=== PATIENT | female | born 1965 | race Caucasian/White ===

== ENCOUNTER → 2019-05-28 15:42 | Outpatient (BNVA) | payer MEDICARE, MEDICAID, SELFPAY | PROVIDERS: Family Provider Nurse Practitioner Family; PCP Nurse Practitioner Family; Visit Provider Nurse Practitioner Family | DX: E11.9 Type 2 diabetes mellitus without complications (principal); Z79.4 Long term (current) use of insulin | CPT/HCPCS: 83036 ==

== ENCOUNTER → 2019-08-09 12:47 | Outpatient (BNVA) | payer OTHER, MEDICAID, SELFPAY | PROVIDERS: Visit Provider Obstetrics & Gynecology | DX: R10.2 Pelvic and perineal pain; N95.2 Postmenopausal atrophic vaginitis; B37.2 Candidiasis of skin and nail | CPT/HCPCS: 80053 ==

== ENCOUNTER → 2019-08-16 07:28 | Outpatient (BNVA) | payer MEDICARE, MEDICAID, SELFPAY | PROVIDERS: Family Provider Nurse Practitioner Family; Visit Provider Nurse Practitioner Psychiatric/Mental Health | DX: F31.62 Bipolar disorder, current episode mixed, moderate (principal); F10.21 Alcohol dependence, in remission; F17.210 Nicotine dependence, cigarettes, uncomplicated; F43.12 Post-traumatic stress disorder, chronic | CPT/HCPCS: 99213 ==

== ENCOUNTER 2019-08-20 18:57 | Observation (INO) | payer MEDICARE, MEDICAID, SELFPAY ==
--- NOTE | 2019-08-20 18:58 | CTR_ITS ---
PROCEDURE INFORMATION: Exam: CT Abdomen And Pelvis With Contrast Exam date and time: 08/20/2019 7:01 PM Age: 54 years old Clinical indication: Abdominal pain; Localized; Right lower quadrant (rlq); Prior surgery; Surgery type: Gb, tubal; Additional info: Abd pain TECHNIQUE: Imaging protocol: Computed tomography of the abdomen and pelvis with intravenous contrast. Total DLP: 1248.73 mGy-cm Radiation optimization: All CT scans at this facility use at least one of these dose optimization techniques: automated exposure control; mA and/or kV adjustment per patient size (includes targeted exams where dose is matched to clinical indication); or iterative reconstruction. Contrast material: OMNI 300; Contrast volume: 95 ml; Contrast route: IV; COMPARISON: CT abdomen pelvis w con* [id number] 08/25/2014 1:35 PM FINDINGS: Mediastinum: A small hiatal hernia is present. Liver: There is some hypodensity adjacent to the gallbladder fossa which is suspected to be tumefactive fatty infiltration. There is mild diffuse fatty infiltration liver. Gallbladder and bile ducts: There has been a cholecystectomy. There is no common bile duct dilation. No intrahepatic biliary duct dilatation. Pancreas: Normal. No ductal dilation. Spleen: Normal. No splenomegaly. Adrenals: Normal. No mass. Kidneys and ureters: There is no evidence of hydronephrosis. There is no evidence of renal calcifications. Stomach and bowel: There is mild diverticulosis without diverticulitis. No additional bowel thickening or inflammatory change. The loops of small bowel have an appropriate appearance. Appendix: The appendix demonstrates moderate diffuse distention, consistent with moderate acute appendicitis. There is periappendiceal inflammatory change. Intraperitoneal space: Unremarkable. No free air. No significant fluid collection. Vasculature: The aorta demonstrates mild atherosclerotic calcification. Lymph nodes: Unremarkable.No enlarged lymph nodes. Bladder: Click bladder nonspecific Reproductive: Unremarkable as visualized. Bones/joints: Moderate degenerative changes are noted in the spine. Chronic appearing anterior wedging fracture of T12 is noted. There is marked disc space narrowing at L4-L5 and L5-S1 with vacuum disc. There is a vacuum disc protrusion at L4-L5. No acute bony abnormality. Soft tissues: There is a tiny fat filled umbilical hernia. Other findings: No ileus or obstruction. CT/CT abdomen pelvis w con* [id number] IMPRESSION: 1. Acute appendicitis. No abscess or free air. 2. There is mild diffuse fatty infiltration liver. Additional hypodensity adjacent to the gallbladder fossa is probable tumefactive fatty infiltration. And elective MRI of the abdomen may be helpful for further confirmation is clinically warranted. There is no duct dilatation in the liver. Radiation Dose CTDIVOL = (mGy): DLP = 1248.73 (mGy-cm)
[2019-08-20 19:01] VITALS: BP 143/96; PULSE 106; RESP 18; TEMP 35.7; O2SAT 98; BMI 29.0
--- NOTE | 2019-08-20 19:07 | ED_ITS ---
HPI - Abdominal Pain General: Chief Complaint: Abdominal Pain Stated Complaint: lower abd pain Time Seen by Provider: 08/20/19 19:05 Source: patient Mode of arrival: ambulatory Limitations: no limitations History of Present Illness: HPI narrative: 54-year-old female has had right lower quadrant pain over the last day. Patient seen in urgent care and sent here to rule out appendicitis. She denies any worsening improving factors. She denies any dysuria. She denies any fevers. MD elicited complaint: abdominal pain Pertinent past history: none Onset (ago): day(s) Pain Consistency: constant Location: RLQ Pain scale (0-10): 9 Radiation: none Migration to: no migration Exacerbating factors: nothing Relieving factors: nothing Associated Symptoms: Denies chills, dysuria and fever(s) Review of Systems Const: Denies: fever, chills, body aches or change in appetite Eyes: Denies: blurry vision or eye discomfort ENMT: Denies: throat pain or dental pain Card: Denies: chest pain Resp: Denies: shortness of breath GI: Reports: abdominal pain : Denies: painful urination Musc: Denies: neck pain or back pain Skin/Breast: Denies: rash Neuro: Denies: headache Psych: Denies: depression Emery/Lymph: Denies: easy bruising All/Imm: Denies: hives PFSH ED PFSH: Medical History Alcohol use disorder, moderate, in early remission Asthma Bipolar 1 disorder Bipolar 1 disorder, mixed, moderate History of overdose CAD (coronary artery disease) DDD (degenerative disc disease), lumbar Diabetes Dyslipidemia GERD (gastroesophageal reflux disease) Hx of drug abuse Hypertension Nicotine dependence, cigarettes, uncomplicated Surgical History History of cholecystectomy (02/13/14) [place]aroscopic[place] [facility] [place] of [place]al ligation (~1993) . [place] [facility] [place] Family History Family/Other Breast cancer aunt and cousin Grandmother Diabetes Hypertension maternal Heart disease maternal Hypercholesteremia maternal Mother Heart disease Hypercholesteremia Social History Smoking and tobacco status: current every day smoker cigarettes Packs smoked per day: 1 Years cigarettes smoked: 30 Second hand smoke exposure: No Alcohol intake: former Year of sobriety/quit date alcohol: Quit 04/2018 Lives independently: Yes Household members: friend(s) Marital status: Current occupational status: disabled History of recent travel: No Current gender identity: Female Physical Exam Const: COMMON NORMALS: no apparent distress, oriented x3 and healthy appearing HENMT: COMMON NORMALS: normocephalic and head/scalp atraumatic HEAD & SCALP: normocephalic and atraumatic Eye: COMMON NORMALS: PERRL and EOMs intact bilaterally PUPIL: Yes PERRL Neck/C-Spine: COMMON NORMALS: full ROM and supple Chest: COMMONS NORMALS: inspection of chest normal and palpation of chest normal Resp: COMMON NORMALS: normal respiratory effort, no retractions, no use of accessory muscles and clear to auscultation bilaterally AUSCULTATION: clear to auscultation bilaterally Cardio: COMMON NORMALS: regular rate, regular rhythm and no murmurs RATE: regular rate RHYTHM: regular rhythm GI: COMMON NORMALS: normal to inspection, nondistended, normoactive bowel sounds, soft to palpation and no masses PALPATION: Yes soft and Yes tender Details: RLQ Extremity: COMMON NORMALS: normal to inspection and full ROM Neuro: COMMON NORMALS: oriented x3, moves all extremities and no focal motor deficits Psych: COMMON NORMALS: mental status grossly normal, thought process normal and cooperative THOUGHT PROCESS: normal thought process Skin: COMMON NORMALS: no rashes or lesions noted and no wounds GENERAL SKIN EXAM: no rashes or lesions noted Course Vital Signs: Vital signs: Vital Signs Temperature 96.3 F L 08/20/19 19:01 Pulse Rate 98 08/20/19 19:46 Respiratory Rate 18 08/20/19 19:46 Blood Pressure 112/76 08/20/19 19:46 Pulse Oximetry 100 08/20/19 19:46 MDM - Abdominal Pain MDM Narrative: Medical decision making narrative: Patient presents here with abdominal pain and CT found appendicitis. I spoke to Dr. Diallo of surgery and will admit and he plans to take her to the OR in the morning. Patient has been stable while here. Imaging Data ^: CT Abd/Pel: Radiologist's impression: [facility] [address] [place] [address] CT Scan Report Signed with Addenda Patient: Jaida Thorpe Unit #: [id number] : [id number] Age/Sex: 54 / F ADM Date: 08/20/19 Loc: ER Room/Bed: Attending Dr: Ordering Provider/Ordering MD: Stephen Mayberry MD Date of Service: 08/20/19 Procedure(s): CT abdomen pelvis w con* [id number] Accession Number(s): [id number] Report Number: [id number]/CT abdomen pelvis w con* [id number] THIS REPORT CONTAINS FINDINGS THAT MAY BE CRITICAL TO PATIENT CARE. The findings were verbally communicated via telephone conference with stephen Mayberry at 7:39 PM CDT on 08/20/2019. The findings were acknowledged and understood. Radiation Dose CTDIVOL = (mGy): DLP = 1248.73 (mGy-cm) Addendum Dictated By: Julianna Myers Addendum Signed By: Julianna Myers Signed Date/Time: 08/20/191940 Addendum Cosigned By: PROCEDURE INFORMATION: Exam: CT Abdomen And Pelvis With Contrast Exam date and time: 08/20/2019 7:01 PM Age: 54 years old Clinical indication: Abdominal pain; Localized; Right lower quadrant (rlq); Prior surgery; Surgery type: Gb, tubal; Additional info: Abd pain TECHNIQUE: Imaging protocol: Computed tomography of the abdomen and pelvis with intravenous contrast. Total DLP: 1248.73 mGy-cm Radiation optimization: All CT scans at this facility use at least one of these dose optimization techniques: automated exposure control; mA and/or kV adjustment per patient size (includes targeted exams where dose is matched to clinical indication); or iterative reconstruction. Contrast material: OMNI 300; Contrast volume: 95 ml; Contrast route: IV; COMPARISON: CT abdomen pelvis w con* [id number] 08/25/2014 1:35 PM FINDINGS: Mediastinum: A small hiatal hernia is present. Liver: There is some hypodensity adjacent to the gallbladder fossa which is suspected to be tumefactive fatty infiltration. There is mild diffuse fatty infiltration liver. Gallbladder and bile ducts: There has been a cholecystectomy. There is no common bile duct dilation. No intrahepatic biliary duct dilatation. Pancreas: Normal. No ductal dilation. Spleen: Normal. No splenomegaly. Adrenals: Normal. No mass. Kidneys and ureters: There is no evidence of hydronephrosis. There is no evidence of renal calcifications. Stomach and bowel: There is mild diverticulosis without diverticulitis. No additional bowel thickening or inflammatory change. The loops of small bowel have an appropriate appearance. Appendix: The appendix demonstrates moderate diffuse distention, consistent with moderate acute appendicitis. There is periappendiceal inflammatory change. Intraperitoneal space: Unremarkable. No free air. No significant fluid collection. Vasculature: The aorta demonstrates mild atherosclerotic calcification. Lymph nodes: Unremarkable.No enlarged lymph nodes. Bladder: Click bladder nonspecific Reproductive: Unremarkable as visualized. Bones/joints: Moderate degenerative changes are noted in the spine. Chronic appearing anterior wedging fracture of T12 is noted. There is marked disc space narrowing at L4-L5 and L5-S1 with vacuum disc. There is a vacuum disc protrusion at L4-L5. No acute bony abnormality. Soft tissues: There is a tiny fat filled umbilical hernia. Other findings: No ileus or obstruction. CT/CT abdomen pelvis w con* [id number] IMPRESSION: 1. Acute appendicitis. No abscess or free air. 2. There is mild diffuse fatty infiltration liver. Additional hypodensity adjacent to the gallbladder fossa is probable tumefactive fatty infiltration. And elective MRI of the abdomen may be helpful for further confirmation is clinically warranted. There is no duct dilatation in the liver. Discharge Plan Discharge Prescriptions: No Action glipizide 5 mg tablet 5 mg PO QDAY RF: 0 Protonix [address] for susp in packet 40 mg PO QDAY RF: 0 albuterol sulfate [Ventolin HFA] 90 mcg/actuation HFA aerosol inhaler 2 puff INHALATION QID RF: 0 metoprolol tartrate 25 mg tablet 12.5 mg PO BID RF: 0 nitroglycerin 0.3 mg tablet, sublingual 0.3 mg SUBLINGUAL Q5M PRN (Reason: chest pain) Qty: 30 RF: 0 terconazole 0.8 % cream 1 appful vaginal .twice daily Qty: 20 RF: 1 aripiprazole [Abilify] 15 mg tablet 15 mg PO BID Qty: 180 RF: 2 hydroxyzine HCl 25 mg tablet 50 mg PO BID PRN (Reason: anxiety) Qty: 180 RF: 2 trazodone 100 mg tablet 300 mg PO .hs Qty: 90 RF: 2 rosuvastatin [Crestor] 40 mg tablet 40 mg PO QDAY Qty: 30 RF: 0 cyclobenzaprine 10 mg tablet 10 mg PO TID PRN (Reason: muscle spasm) Qty: 30 RF: 0 clopidogrel [Plavix] 75 mg tablet 75 mg PO DAILY Qty: 30 RF: 6 Coding Level of Care Code ED 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
[2019-08-20] MEDS: iohexol 300 mg/mL 100 mL Btl IV (19:25)
[2019-08-20] MEDS: sodium chloride 0.9% 1,000 ML 999 ML IV (19:38)
[2019-08-20] MEDS: HYDROmorphone 1 mg/mL INJ 1 mL IVP (19:38)
[2019-08-20] MEDS: ondansetron 2 mg/ML SDV 2 mL 4 MG IVP (19:39)
[2019-08-20 19:46] VITALS: BP 112/76; PULSE 98; RESP 18; O2SAT 100
[2019-08-20 20:07] LABS: Basophils % 0.2 %; Eosinophils # 0.1 10^3/uL (0.0-0.8); Hematocrit 42.2 % (37.0-47.0); Hemoglobin 13.6 g/dL (11.5-15.3); Lymphocytes # 2.9 10^3/uL (0.8-4.8); Lymphocytes % 31.9 %; Mean Corpuscular HGB Conc 32.2 g/dL (30.0-36.0); Mean Corpuscular Hemoglobin 27.9 pg (28.0-34.0); Mean Corpuscular Volume 86.5 fL (81-99); Mean Platelet Volume 10.4 fL (7.4-10.4); Monocytes # 0.5 10^3/uL (0.2-0.9); Monocytes % 5.9 %; Neutrophils # 5.5 10^3/uL (1.8-7.7); Neutrophils % 60.8 %; Nucleated Red Blood Cells % 0 %; Platelet Count 280 10^3/cmm (130-400); Red Blood Count 4.88 10^6/uL (4.1-5.3); Red Cell Distribution Width 13.9 % (12.1-15.1)
[2019-08-20 20:29] LABS: Alanine Aminotransferase 11 U/L (0-33); Albumin Level 3.7 g/dL (3.5-5.2); Alkaline Phosphatase 104 IU/L (35-105); Anion Gap 17.8 (5-19); Aspartate Amino Transferase 13 U/L (0-32); Blood Urea Nitrogen 7 mg/dL (6-20); Calcium 9.6 mg/dL (8.5-10.5); Carbon Dioxide 20 mmol/L (22-29); Chloride 95 mmol/L (98-107); Globulin 3.4 g/dL (1.3-4.6); Glomerular Filtration Rate 51.8 mL/min (90-130); Glucose 118 mg/dL (65-115); Lipase 75 U/L (13-60); Osmolality Calculated 265 mOsm/kg (285-295); Potassium 3.8 mmol/L (3.5-5.1); Sodium 129 mmol/L (136-145); Total Bilirubin 0.5 mg/dL (0.15-1.2); Total Protein 7.1 g/dL (6.6-8.7)
--- NOTE | 2019-08-20 20:36 | PM.CONSULT ---
Providers/Reason For Consult Consulting Physican/Specialty*: Hospitalist service Reason for Consult*: Comorbid condition such as diabetes and hypertension management Attending Physician: Danial Mccord MD History of Present Illness History of Present Illness Jaida Thorpe is a 54 year old female who carries diagnosis of type 2 diabetes takes glipizide, hypertension came in after experiencing lower right lower quadrant pain. Patient is stating that her symptoms started last night. She has been constipated for few days in the past and yesterday was her first bowel movement after experiencing constipation, she was watching television when she started experiencing sharp pain in the right lower quadrant, she experiencing 1-2 episodes of nausea and vomiting today, her pain was getting worse, 10/10, not radiating towards her back not getting worse on micturition. Any kind of movement would make her pain worse. She has not noticed fever at home. No previous history of ovarian cysts. Diagnostics in ER revealed acute appendicitis without abscess or perforation. No signs of sepsis, no leukocytosis. Hospital service was requested to comanage the patient because of underlying diabetes and hypertension. When I evaluated the patient she had just received morphine was not in any active distress, hemodynamically stable. Review of Systems Const: Reports: body aches and change in appetite; Denies: fever or chills Eyes: Denies: change in vision ENMT: Denies: throat pain Card: Denies: chest pain Resp: Denies: shortness of breath GI: Reports: abdominal pain, nausea, vomiting, constipation and change in bowel habits : Denies: flank pain, difficulty urinating or urinary frequency Musc: Denies: neck pain or extremity swelling Skin/Breast: Denies: rash or itching Neuro: Denies: headache Psych: Denies: anxiety Endo: Denies: excessive urination Emery/Lymph: Denies: easy bruising All/Imm: Denies: hives Meds/Allergies Home Medications and Allergies Home Medications Medication Instructions Recorded Confirmed Type albuterol sulfate 90 mcg/actuation 2 puff INHALATION QID 06/12/19 08/20/19 History aerosol inhaler glipizide 5 mg tablet 5 mg PO QDAY 06/12/19 08/20/19 History metoprolol tartrate 25 mg tablet 12.5 mg PO BID 06/12/19 08/20/19 History nitroglycerin 0.3 mg sublingual 0.3 mg SUBLINGUAL Q5M PRN #30 tab 06/12/19 08/20/19 Rx tablet pantoprazole 40 mg granules 40 mg PO QDAY 06/12/19 08/20/19 History delayed-release for susp in packet cyclobenzaprine 10 mg tablet 10 mg PO TID PRN #30 tab 07/04/19 08/20/19 Rx rosuvastatin 40 mg tablet 40 mg PO QDAY #30 tab 07/04/19 08/20/19 Rx clopidogrel 75 mg tablet 75 mg PO DAILY #30 tab 07/24/19 08/20/19 Rx terconazole 0.8 % vaginal cream 1 appful VAGINAL .twice daily #20 08/09/19 08/20/19 Rx gm aripiprazole 15 mg tablet 15 mg PO BID #180 tab 08/16/19 08/20/19 Rx hydroxyzine HCl 25 mg tablet 50 mg PO BID PRN #180 tab 08/16/19 08/20/19 Rx acetaminophen [Tylenol] 325 mg PO QID PRN 08/20/19 08/20/19 History calcium carbonate-vitamin D3 1 cap PO DAILY 08/20/19 08/20/19 History [Calcium 600 + D(3)] meloxicam 15 mg PO DAILY 08/20/19 08/20/19 History trazodone 300 mg PO BEDTIME 08/20/19 08/20/19 History Allergies Allergy/AdvReac Type Severity Reaction Status Date / Time duloxetine [From Cymbalta] Allergy Unknown Unknown Verified 08/20/19 17:37 paroxetine [From Paxil] AdvReac Mild ADR-Shakine Verified 08/20/19 17:37 ss bupropion [From Wellbutrin] AdvReac ADR-Vomitin Verified 08/20/19 17:37 g metformin AdvReac ADR-Diarrhe Verified 08/20/19 17:37 a PFSH Acute PFSH: Medical History Alcohol use disorder, moderate, in early remission Asthma Bipolar 1 disorder Bipolar 1 disorder, mixed, moderate History of overdose CAD (coronary artery disease) DDD (degenerative disc disease), lumbar Diabetes Dyslipidemia GERD (gastroesophageal reflux disease) Hx of drug abuse Hypertension Nicotine dependence, cigarettes, uncomplicated Type 2 diabetes mellitus Surgical History History of cholecystectomy (02/13/14) Laparoscopic. Performed by Dr. Wahl at [facility] [place] History of tubal ligation (~1993) . Performed by Dr. Jesus at [facility] [place]. Family History Family/Other Breast cancer aunt and cousin Grandmother Diabetes Hypertension maternal Heart disease maternal Hypercholesteremia maternal Mother Heart disease Hypercholesteremia Social History Smoking and tobacco status: current every day smoker cigarettes Packs smoked per day: 1 Years cigarettes smoked: 30 Second hand smoke exposure: No Alcohol intake: former Year of sobriety/quit date alcohol: Quit 04/2018 Lives independently: Yes Household members: friend(s) Marital status: Current occupational status: disabled History of recent travel: No Current gender identity: Female Vitals/I&O/Wt Last Vital Signs Temp 96.3 F L 08/20/19 19:01 Pulse 98 08/20/19 19:46 Resp 18 08/20/19 19:46 BP 112/76 08/20/19 19:46 Pulse Ox 100 08/20/19 19:46 Weight last 48 hrs Weight 81.647 kg Physical Exam Narrative: EXAM NARRATIVE: Overweight female currently sitting without any active distress in her bed saturating well with normal hemodynamics Right lower quadrant focal tenderness on superficial and deep palpation without any signs of active peritonitis, any kind of right leg movement would aggravate her pain S1, S2 no signs of heart failure tachycardia Lungs are clear to auscultation Neurologically nonfocal exam Lower extremity no signs of edema gangrene ulcer EOMI, PERRLA Appropriate mood and affect A&P Assessment and plan (1) Acute appendicitis: Status: Acute Qualifiers: Acute appendicitis type: unspecified acute appendicitis type Qualified Code(s): K35.80 - Unspecified acute appendicitis (2) RLQ abdominal pain: Status: Acute (3) Nicotine dependence, cigarettes, uncomplicated: Status: Chronic (4) Hyponatremia: Status: Acute (5) Hypokalemia: Status: Acute Additional A&P Information Comanaging patient along general surgery Acute appendicitis: Afebrile, no leukocytosis, no signs of perforation or abscess on CT imaging, surgical management as per general surgery D5 LR at 30 cc/h, Zosyn, anti-inflammatory ketorolac x1, Dilaudid for analgesia N.p.o. SCDs for DVT prophylaxis Type 2 diabetes: Last hemoglobin A1c around 6 I would use D5 LR, low-dose sliding scale Chronic essential hypertension: Patient is not hypertensive despite abdominal pain, monitor her blood pressure at the moment, I will keep her n.p.o., holding antihypertensives Hyponatremia and hypokalemia I believe this is secondary to dehydration due to vomiting Considering history of alcohol abuse, will check alcohol level Full code Consult Attestations Medical Necessity Statement: As per general surgery Time Spent in Patient Care: 30 Coding Level of Care Code Acute Crane Man for Abida Wharton Diagnoses Acute appendicitis K35.80 Acute appendicitis type: unspecified acute appendicitis type RLQ abdominal pain R10.31 Nicotine dependence, cigarettes, uncomplicated F17.210 Hyponatremia E87.1 Hypokalemia E87.6
[2019-08-20 20:41] LABS: Slide Review Slide Review Perform
[2019-08-20] MEDS: sodium chloride 0.9% 1,000 ML 100 ML IV (21:04)
[2019-08-20] MEDS: piperacillin-tazobactam 3.375 GM in sodium chloride 0.9% (plus) 50 ML IV (21:04)
[2019-08-20 21:05] VITALS: BP 139/94; PULSE 86; RESP 18; O2SAT 98
[2019-08-20 21:54] VITALS: BP 130/87; PULSE 87; RESP 18; O2SAT 100
[2019-08-20] MEDS: morphine 4 mg/mL SDV 1 mL IVP (21:54)
[2019-08-20 23:06] LABS: Magnesium 2.1 mg/dL (1.7-2.3)
[2019-08-20 23:12] VITALS: BP 107/73; PULSE 84; RESP 18; TEMP 36.5; O2SAT 99
[2019-08-20] MEDS: ketorolac 30 mg/mL INJ 15 MG IVP (23:19)
[2019-08-20] MEDS: dextrose 5%-lactated ringers 1,000 ML 30 ML IV (23:19)
[2019-08-20 23:22] LABS: Alcohol Level < 10 mg/dL (0-10)
[2019-08-20 23:42] LABS: Add Urine Microscopic? NO
[2019-08-20 23:49] LABS: Bilirubin Urine Neg (NEGATIVE); Blood Urine Neg (Negative); Glucose Urine UA Norm (Normal); Ketones Urine Negative (Negative); Leukocyte Esterase Urine Negative (Negative); Nitrate Urine Negative (Negative); Protein Urine Neg (Negative); Specific Gravity, Urine 1.005 (1.005-1.030); Urine Appearance Clear (CLEAR); Urine Color Straw (Yellow); Urobilinogen Urine Norm (Negative); pH Urine 5 (5-7)
[2019-08-21] VITALS (27 sets, daily range): BP systolic 81–152; BP diastolic 51–109; PULSE 76–125; RESP 14–24; TEMP 35.8–37.9; O2SAT 85–100
[2019-08-21] MEDS: HYDROmorphone 1 mg/mL INJ 1 mL IVP ×2 (01:51→12:41)
[2019-08-21 04:50] LABS: Basophils % 0.3 %; Eosinophils # 0.2 10^3/uL (0.0-0.8); Eosinophils % 2.3 %; Hematocrit 37.4 % (37.0-47.0); Hemoglobin 12.3 g/dL (11.5-15.3); Lymphocytes # 3.1 10^3/uL (0.8-4.8); Lymphocytes % 46.8 %; Mean Corpuscular HGB Conc 32.9 g/dL (30.0-36.0); Mean Corpuscular Hemoglobin 28.2 pg (28.0-34.0); Mean Corpuscular Volume 85.8 fL (81-99); Mean Platelet Volume 9.9 fL (7.4-10.4); Monocytes # 0.4 10^3/uL (0.2-0.9); Neutrophils # 2.9 10^3/uL (1.8-7.7); Neutrophils % 44.3 %; Nucleated Red Blood Cells % 0 %; Platelet Count 303 10^3/cmm (130-400); Red Blood Count 4.36 10^6/uL (4.1-5.3); Red Cell Distribution Width 13.7 % (12.1-15.1); White Blood Count 6.6 10^3/uL (4.0-10.0)
[2019-08-21] MEDS: piperacillin-tazobactam 3.375 GM in sodium chloride 0.9% (plus) 50 ML IV ×3 (04:52→20:58)
[2019-08-21 04:55] LABS: Anion Gap 13.9 (5-19); Blood Urea Nitrogen 6 mg/dL (6-20); Calcium 9.3 mg/dL (8.5-10.5); Carbon Dioxide 24 mmol/L (22-29); Chloride 102 mmol/L (98-107); Glomerular Filtration Rate 51.8 mL/min (90-130); Glucose 143 mg/dL (65-115); Osmolality Calculated 280 mOsm/kg (285-295); Potassium 3.9 mmol/L (3.5-5.1); Sodium 136 mmol/L (136-145)
[2019-08-21 04:57] LABS: Lactic Acid level (Lactate) 0.9 mmol/L (0.5-2.2)
--- NOTE | 2019-08-21 05:28 | PM.HP ---
Providers/Chief Complaint Admitting Physician: Danial Mccord MD Chief Complaint: lower abd pain History of Present Illness Chief Complaint: Abdominal pain History of present illness: Ms. Jaida Thorpe is a 54 year old female with associated multiple medical comorbidities including coronary artery disease that she required stent placement x2 last summer and she has been on Plavix as the patient just informed me now last time she did receive Plavix for 2 days ago,also she is a type 2 diabetes and have history of hypertension, patient presents with 1 day history of right-sided lower abdominal pain associated with vomiting x1 and nausea, pain is mostly in the right lower side is not being referred and she never had this pain before, describes it as dull aching, no associated dysuria or change in bowel habits, as the pain got worse presented to the emergency department where she was worked up and found to have acute appendicitis on the CT scan. General surgery was consulted for further evaluation and intervention Due to patient's multiple medical comorbidities I elected to have hospitalist service will be consulted for further medical evaluation and optimization prior to surgery. CT scan of the abdomen and pelvis: 1. Acute appendicitis. No abscess or free air. 2. There is mild diffuse fatty infiltration liver. Additional hypodensity adjacent to the gallbladder fossa is probable tumefactive fatty infiltration. And elective MRI of the abdomen may be helpful for further confirmation is clinically warranted. There is no duct dilatation in the liver. Review of Systems General: Reports: 10 or more systems reviewed and unremarkable except in HPI and below Medications/Allergies Home Medications Medication Instructions Recorded Confirmed Last Taken Type acetaminophen [Tylenol] 325 mg PO QID PRN 08/20/19 08/20/19 08/20/19 History calcium carbonate-vitamin D3 1 cap PO DAILY 08/20/19 08/20/19 08/19/19 History [Calcium 600 + D(3)] meloxicam 15 mg PO DAILY 08/20/19 08/20/19 08/19/19 History trazodone 300 mg PO BEDTIME 08/20/19 08/20/19 08/19/19 History Allergies Allergy/AdvReac Type Severity Reaction Status Date / Time duloxetine [From Cymbalta] Allergy Unknown Unknown Verified 08/20/19 17:37 paroxetine [From Paxil] AdvReac Mild ADR-Shakine Verified 08/20/19 17:37 ss bupropion [From Wellbutrin] AdvReac ADR-Vomitin Verified 08/20/19 17:37 g metformin AdvReac ADR-Diarrhe Verified 08/20/19 17:37 a PFSH Acute PFSH: Medical History Alcohol use disorder, moderate, in early remission Asthma Bipolar 1 disorder Bipolar 1 disorder, mixed, moderate History of overdose CAD (coronary artery disease) DDD (degenerative disc disease), lumbar Diabetes Dyslipidemia GERD (gastroesophageal reflux disease) Hx of drug abuse Hypertension Nicotine dependence, cigarettes, uncomplicated Type 2 diabetes mellitus Surgical History History of cholecystectomy (02/13/14) Laparoscopic. Performed by Dr. Wahl at [facility] [place] History of tubal ligation (~1993) . Performed by Dr. Jesus at [facility]. Family History Family/Other Breast cancer aunt and cousin Grandmother Diabetes Hypertension maternal Heart disease maternal Hypercholesteremia maternal Mother Heart disease Hypercholesteremia Social History Smoking and tobacco status: current every day smoker cigarettes Packs smoked per day: 1 Years cigarettes smoked: 30 Second hand smoke exposure: No Alcohol intake: former Year of sobriety/quit date alcohol: Quit 04/2018 Lives independently: Yes Household members: friend(s) Marital status: Current occupational status: disabled History of recent travel: No Current gender identity: Female Vitals/I&O/Wt Last Vital Signs Temp 97.8 F 08/21/19 03:59 Pulse 85 08/21/19 03:59 Resp 18 08/21/19 03:59 BP 81/51 08/21/19 03:59 Pulse Ox 94 08/21/19 03:59 08/20/19 08/20/19 08/21/19 14:59 22:59 06:59 Intake Total 1050 / 1050 Balance 1050 / 1050 Weight last 48 hrs Weight 180 lb Physical Exam Narrative: EXAM NARRATIVE: Patient is conscious alert oriented X3 BMI 29 Head and neck examination PERRLA no masses no cervical lymphadenopathy no jaundice Cardiac examination audible S1-S2 no murmurs no gallops no arrhythmias Chest is clear bilateral,abscence of Rhonchi or wheezes,no surgical emphysema Abdomen nontender except at the right lower quadrant with local guarding and rigidity maximally located at McBurney's point otherwise, nondistended soft no organomegaly guarding or rigidity/no signs of peritonitis. Extremities no cyanosis no clubbing no edema Data : 08/21/19 04:06 08/21/19 04:06 A&P Assessment and plan (1) Acute appendicitis: After thorough history physical examination and reviewing the chart and images with my personal interpretion, I counseled the patient for laparoscopic appendectomy possible open. Indications, risks, benefits and alternatives were all discussed with the patient and did agree to proceed. Informed consent per chart Does understand that she is at high risk of bleeding as she has been on clopidogrel since she had her coronary artery stents, last time received according to her description yesterday morning. I did discuss with the patient in the presence of her caring nurse KASSANDRA Frederick that we can type and cross and ordered platelets to prevent potential bleeding to counteract the effect of Plavix on the quality of platelets understanding that this may affect her coronary flow and stents and can potentially compromise her coronary status, I did explain for the patient that she is at higher risk of bleeding and if we give her the platelets she would be a high risk of coronary stent compromise. At this point patient understands the risks benefits alternatives and indications and she would like to proceed with surgery without platelets transfusion, she also understands that she may potentially require further surgical intervention and platelet transfusion after surgery and or other blood products. Plan to type and screen for now empirically and will proceed with surgery accordingly. Status: Acute Qualifiers: Acute appendicitis type: unspecified acute appendicitis type Qualified Code(s): K35.80 - Unspecified acute appendicitis Attestations Medical Necessity Statement*: Observation status Time Spent in Patient Care: 16 - 35 minutes (>than 50% of time spent in counselling and/or direct pt care on unit). Coding Level of Care Code Acute Clinical Document Improvement Educator for [facility] Diagnoses Acute appendicitis K35.80 Acute appendicitis type: unspecified acute appendicitis type
--- NOTE | 2019-08-21 06:00 | PC.NURSE ---
at bedside with Dr Bergeron to discuss surgery. pt recently on plavix x1-[address] bergeron explained the risks of bleeding and informed her of giving platelets prior to surgery. pt had recent heart stents placed back in november of 2018. dr bergeron explained to her the risks also of receiving platelets and it possibly interfering with her stents. pt wants to proceed with the surgery with knowing the risks of bleeding. verbal order to type and screen pt.
[2019-08-21 06:34] LABS: Glucose Point of Care 145 mg/dL (70-110)
--- NOTE | 2019-08-21 07:26 | ANES.PREANE2 ---
Pre-Anesthetic Assessment Pre-Anesthetic Assessment: Height/Weight: Height 1.68 m Weight 81.647 kg Temp Pulse Resp BP Pulse Ox 97.7 F 80 20 H 98/67 93 08/21/19 07:21 08/21/19 07:21 08/21/19 07:21 08/21/19 07:21 08/21/19 07:21 Preop Diagnosis: Acute appendicitis Proposed Procedure: Operation Date: 08/21/19 09:10 Proposed Procedures p Lap Appy poss open(Not Applicable) - Danial Mccord MD Last intake: Intake Last Liquid Date 08/20/19 Last Liquid Time 22:00 Last Solid Date 08/20/19 Last Solid Time 12:00 Social: Packs per day: 1 Pack years: 35 Exam: Pre-Anes Outpt Exam: alert, oriented x 3, clear to auscultation bilaterally and regular rate & rhythm Airway: Submandibular: WNL Cervical ROM: WNL MP: 1 Dentition: False Pulmonary: Pulmonary: Asthma Comments: breathing feels good CV/HEM: CV/HEM: CAD and HTN Comments: rx'd x 10y stent 11/30 no SD GI: GI: GERD Comments: acute appendiciitis Metabolic: Metabolic: DM Comments: rx'd 12y doesn't follow Musc/skel: Musc/skel: Lower Back Pain Comments: left radiculopathy Anesthetic Plan: ASA status: 3E Anesthesia: General Meds/Allergies Current Medications: Current Medications Generic Name Dose Route Start Last Admin Trade Name Freq PRN Reason Stop Dose Admin Hydromorphone HCl 1 mg 08/20/19 22:47 08/21/19 01:51 Dilaudid Inj IVP 1 mg Q2H PRN Administration PAIN Sodium Chloride 1,000 mls @ 100 m ls/hr 08/20/19 19:45 08/20/19 21:04 Sodium Chloride 0.9% IV 100 mls/hr .Q10H DANILO Administration Dextrose/Lactated Ringer's 1,000 mls @ 30 ml s/hr 08/20/19 22:47 08/20/19 23:19 Dextrose 5%-Lact ated Ringers IV 30 mls/hr .Q24H DANILO Administration Piperacillin Sod/T azobactam 50 mls @ 12.5 mls /hr 08/21/19 04:00 08/21/19 04:52 Sod 3.375 gm/ So dium Chloride IV 12.5 mls/hr Q8H DANILO Administration Protocol Insulin Aspart 0 unit 08/20/19 22:47 08/20/19 22:49 Novolog SUBCUT Not Given WM&BEDTIME DANILO Protocol PFSH Anesthesia PFSH: Medical History Alcohol use disorder, moderate, in early remission Asthma Bipolar 1 disorder Bipolar 1 disorder, mixed, moderate History of overdose CAD (coronary artery disease) DDD (degenerative disc disease), lumbar Diabetes Dyslipidemia GERD (gastroesophageal reflux disease) Hx of drug abuse Hypertension Nicotine dependence, cigarettes, uncomplicated Type 2 diabetes mellitus Surgical History History of cholecystectomy (02/13/14) Laparoscopic. Performed by Dr. Wahl at [facility] [place] History of tubal ligation (~1993) . Performed by Dr. Jesus at [facility] [place] Family History Family/Other Breast cancer aunt and cousin Grandmother Diabetes Hypertension maternal Heart disease maternal Hypercholesteremia maternal Mother Heart disease Hypercholesteremia Social History Smoking and tobacco status: current every day smoker cigarettes Packs smoked per day: 1 Years cigarettes smoked: 30 Second hand smoke exposure: No Alcohol intake: former Year of sobriety/quit date alcohol: Quit 04/2018 Lives independently: Yes Household members: friend(s) Marital status: Current occupational status: disabled History of recent travel: No Current gender identity: Female Data Anesthesia CBC & Chem 7: 08/21/19 04:06 08/21/19 04:06 Other Labs: Laboratory Results - last 48 hr 08/20/19 08/20/19 08/20/19 19:57 19:57 19:57 WBC 9.0 RBC 4.88 Hgb 13.6 Hct 42.2 MCV 86.5 MCH 27.9 L MCHC 32.2 RDW 13.9 Plt Count 280 MPV 10.4 Neut % (Auto) 60.8 Lymph % (Auto) 31.9 Grand % (Auto) 5.9 Eos % (Auto) 1.0 Baso % (Auto) 0.2 Neut # (Auto) 5.5 Lymph # (Auto) 2.9 Grand # (Auto) 0.5 Eos # (Auto) 0.1 Baso # (Auto) 0.0 Nucleated RBC % (auto) 0 Nucleated RBCs # 0.0 Sodium 129 L Potassium 3.8 Chloride 95 L Carbon Dioxide 20 L Anion Gap 17.8 BUN 7 Creatinine 1.1 H GFR Calculation 51.8 L Glucose 118 H POC Glucose Calculated Osmolality 265 L Lactic Acid (Sepsis) Calcium 9.6 Magnesium 2.1 Total Bilirubin 0.5 AST 13 ALT 11 Alkaline Phosphatase 104 Total Protein 7.1 Albumin 3.7 Globulin 3.4 Lipase 75 H Urine Color Urine Appearance Urine pH Ur Specific [place] Urine Protein Urine Glucose (UA) Urine Ketones Urine Blood Urine Nitrate Urine Bilirubin Urine Urobilinogen Ur Leukocyte Esterase Ethyl Alcohol < 10 Blood Type Rho(D) Type Antibody Screen 08/20/19 08/21/19 08/21/19 23:25 04:06 04:06 WBC 6.6 RBC 4.36 Hgb 12.3 Hct 37.4 MCV 85.8 MCH 28.2 MCHC 32.9 RDW 13.7 Plt Count 303 MPV 9.9 Neut % (Auto) 44.3 Lymph % (Auto) 46.8 Grand % (Auto) 6.0 Eos % (Auto) 2.3 Baso % (Auto) 0.3 Neut # (Auto) 2.9 Lymph # (Auto) 3.1 Grand # (Auto) 0.4 Eos # (Auto) 0.2 Baso # (Auto) 0.0 Nucleated RBC % (auto) 0 Nucleated RBCs # 0.0 Sodium 136 Potassium 3.9 Chloride 102 Carbon Dioxide 24 Anion Gap 13.9 BUN 6 Creatinine 1.1 H GFR Calculation 51.8 L Glucose 143 H POC Glucose Calculated Osmolality 280 L Lactic Acid (Sepsis) Calcium 9.3 Magnesium Total Bilirubin AST ALT Alkaline Phosphatase Total Protein Albumin Globulin Lipase Urine Color Straw Urine Appearance Clear Urine pH 5 Ur Specific [place] 1.005 Urine Protein Neg Urine Glucose (UA) Norm Urine Ketones Negative Urine Blood Neg Urine Nitrate Negative Urine Bilirubin Neg Urine Urobilinogen Norm Ur Leukocyte Esterase Negative Ethyl Alcohol Blood Type Rho(D) Type Antibody Screen 08/21/19 08/21/19 08/21/19 04:06 06:11 06:28 WBC RBC Hgb Hct MCV MCH MCHC RDW Plt Count MPV Neut % (Auto) Lymph % (Auto) Grand % (Auto) Eos % (Auto) Baso % (Auto) Neut # (Auto) Lymph # (Auto) Grand # (Auto) Eos # (Auto) Baso # (Auto) Nucleated RBC % (auto) Nucleated RBCs # Sodium Potassium Chloride Carbon Dioxide Anion Gap BUN Creatinine GFR Calculation Glucose POC Glucose 145 Calculated Osmolality Lactic Acid (Sepsis) 0.9 Calcium Magnesium Total Bilirubin AST ALT Alkaline Phosphatase Total Protein Albumin Globulin Lipase Urine Color Urine Appearance Urine pH Ur Specific [place] Urine Protein Urine Glucose (UA) Urine Ketones Urine Blood Urine Nitrate Urine Bilirubin Urine Urobilinogen Ur Leukocyte Esterase Ethyl Alcohol Blood Type AB Negative Rho(D) Type Negaive Antibody Screen Negative Cardiac Studies: No Data to Display
[2019-08-21] MEDS: sodium chloride 0.9% 1,000 ML 30 ML IV (07:54)
--- NOTE | 2019-08-21 08:49 | PC.NURSE ---
Patient is off the unit
[2019-08-21] MEDS: lidocaine 2% INJ 20 mL INJECTION (09:44)
--- NOTE | 2019-08-21 10:07 | PM.OP ---
Operative Report Date of procedure: August 21, 2019 Pre-op Diagnosis: Acute appendicitis Post-op diagnosis: same (Retrocecal appendicitis without perforation) Procedure Done: Laparoscopic appendectomy Specimens removed/disposition: Appendix Surgeon: Danial Mccord Stock Shipper: Surgical elif Langley Circulating nurse Darcy Anesthesia: General (vehicle window tinter Michael ) Estimated blood loss (mL): 10 Condition: stable Disposition: floor Brief History: Ms. Jaida Thorpe is a 54 year old female with associated multiple medical comorbidities including coronary artery disease that she required stent placement x2 last summer and she has been on Plavix as the patient just informed me now last time she did receive Plavix for 2 days ago,also she is a type 2 diabetes and have history of hypertension, patient presents with 1 day history of right-sided lower abdominal pain associated with vomiting x1 and nausea, pain is mostly in the right lower side is not being referred and she never had this pain before, describes it as dull aching, no associated dysuria or change in bowel habits, as the pain got worse presented to the emergency department where she was worked up and found to have acute appendicitis on the CT scan. General surgery was consulted for further evaluation and intervention Due to patient's multiple medical comorbidities I elected to have hospitalist service will be consulted for further medical evaluation and optimization prior to surgery. CT scan of the abdomen and pelvis: 1. Acute appendicitis. No abscess or free air. 2. There is mild diffuse fatty infiltration liver. Additional hypodensity adjacent to the gallbladder fossa is probable tumefactive fatty infiltration. And elective MRI of the abdomen may be helpful for further confirmation is clinically warranted. There is no duct dilatation in the liver. After thorough history physical examination and reviewing the chart and images with my personal interpretion, I counseled the patient for laparoscopic appendectomy possible open. Indications, risks, benefits and alternatives were all discussed with the patient and did agree to proceed. Informed consent per chart Procedure: Patient after being identified in the holding area and asked to void urine, and informed consent per chart ,patient was then taken back to the OR placed in supine position got intubated by anesthesia left arm was tucked tucked ,Timeout was done verifying the patient's name/date of /planned procedure and destination after the procedure, all were in agreement., preoperative antibiotics administered per protocol. prep and drape of the abdomen was done under the usual sterile technique. Started by longitudinal skin incision supraumbilical using a Rios trocar technique safe entry to the abdominal cavity was achieved verified by using 10 mm zero degree laparoscopy, switched to a 30? scope under direct visualization a suprapubic 5 mm trocar was inserted followed by another 5 mm trocar inserted in the left lower quadrant, I was able to position the patient in an T Nava and left side down, dissection of the retrocecal acutely inflamed appendix ,bluntly, attention was deviated to the healthy base of the appendix where I had to switch the camera to 5 mm 30? scope got introduced through the left lower quadrant and through the Rios trocar under direct visualization a GI stapler 45 mm blue load was applied at the healthy part of the base of the appendix there was an additional adhesions to the cecum that I had to take down and an additional 45 mm blue load was applied, and an Endoloop PDS was applied onto the mesoappendix for control , the appendix was then retrieved in an Endo Catch bag, final survey was done of the abdomen and pelvis,irrigation with warm saline, and suction was obtained, were mercury fluid like in the pelvis due to reaction from the inflamed appendix. A 5 mm surgery clips were applied onto the site of the staple lines for extra hemostasis this patient being on Plavix. I did evaluate the liver and the gallbladder fossa nothing appeared to be abnormal from that view is on the CT scan findings Final look laparoscopy was done showing no other abnormalities or injuries, and the trocar site supraumbilically was closed by 0 Vicryl sutures under direct vision using fascial closure device,all trocars were taken out under direct visualization,followed by skin closure using 4-0 Monocryl of all trocar site incisions.Infiltration of local lidocaine 2% was done to all incision sites. Surgical glue was then applied Count was completed at the end of the procedure for instruments , sponges and instruments Patient tolerated the procedure well and was transferred to the recovery area after extubation. I was present for the whole entire procedure
--- NOTE | 2019-08-21 10:19 | PC.CHAP ---
Pastoral Care Encounter/Spiritual Assessment Type of Contact [] Declined planning official visit [] Patient/Family/Request visit [] Outpatient visit [] Follow-up visit [] Physician referral [] Code/Alert [x] Routine visit [] Staff referral [] Actively dying [] Patient sleeping [] Family support [] [x] Out of room [] Palliative care [] [] Receiving care in room [] Pre-surgical visit [] Trauma [] Long length of stay [] ICU visit [] Other: Relational/Emotional Strength [] Patient feels connected with others/family/visitors/staff [] Distress [] Loneliness/isolation [] Abandonment Spirituality of Patient [] Person of Gretchen [] Attends Evangelical of their Gretchen [] Believes in Prayer [] Reads Bible or Islam materials [] There are Spiritual issues to be addressed Partner Cco Interventions [] Prayer [] Active listening [] Non-anxious presence [] Spiritual/emotional support [] Crisis/trauma care [] Spiritual counseling [] Bereavement support [] Provided bereavement packet [] Provided Bible/devotional materials [] Provided toy/stuffed animal, coloring book to patient or family member [] Provided Communion [] Anointing/[place] [] Salvation [x] Completed spiritual assessment [] Other: Impact on Illness or Injury [] Angry [] Fearful [] Anxious [] Often cries [] Exhaustion [] Unable to work [] Unable to attend temple [] Unable to walk/stand [] Unable to read [] Unable to drive [] Unable to eat/drink [] Unable to sleep [] Unable to be with family [] Patient intubated [] Other: Summary Patient out for testing Time spent with patient
--- NOTE | 2019-08-21 10:27 | SUR.PHASEI ---
1023 PATIENT TO PACU AT THIS TIME. RR EVEN AND UNLABORED. PLACED ON SIMPLE MASK AT 8L, SPO2 100%. PATIENT APPEARS DROWSY, DENIES PAIN.
[2019-08-21] MEDS: fentaNYL 50 mcg/mL INJ 2mL IVP (11:08)
[2019-08-21 11:40] LABS: Glucose Point of Care 127 mg/dL (70-110)
--- NOTE | 2019-08-21 11:45 | SUR.PHASEI ---
1121 PATIENT TO MED SURG AT THIS TIME. RR EVEN AND UNLABORED. RATES PAIN 9/10, PATIENT APPEARS DROWSY, DOZING OFF TO SLEEP, EASILY AROUSED. INCISIONS TO ABDOMEN, CDI. PATIENT AMBULATORY FROM GURNEY TO BED WITH STEADY GAIT. ANESTHESIA AWARE OF LAST PAIN MEDICATION GIVEN, THIS NURSE REMAINED WITH PATIENT UNTIL 1130
[2019-08-21] MEDS: sodium chloride 0.9% 1,000 ML 100 ML IV ×2 (12:04→22:18)
--- NOTE | 2019-08-21 12:49 | P.PN_ITS ---
Subjective Subjective: Interval history: I am seeing her shortly after her surgery. She is awake, although somewhat groggy. Reporting abdominal pain. No nausea or vomiting. Breathing is comfortable. No chest pain or other complaints. Vitals/I&O/Wt Last Vital Signs Temp 96.4 F L 08/21/19 11:35 Pulse 92 08/21/19 11:35 Resp 14 08/21/19 12:41 BP 136/87 08/21/19 11:35 Pulse Ox 98 08/21/19 12:41 08/20/19 08/21/19 08/21/19 22:59 06:59 14:59 Intake Total 1050 / 1050 1100 / 1100 Output Total Balance 1050 / 1050 1090 / 1090 Weight last 48 hrs Weight 81.647 kg Physical Exam Const: COMMON NORMALS: no apparent distress and oriented x3 OTHER: Tired/groggy after anesthesia. HENMT: COMMON NORMALS: oropharynx normal Neck/C-Spine: COMMON NORMALS: no JVD Resp: COMMON NORMALS: normal respiratory effort and clear to auscultation bilaterally AUSCULTATION: clear to auscultation bilaterally Cardio: COMMON NORMALS: no JVD, regular rhythm, S1 normal heart sound, S2 normal heart sound and no murmurs RHYTHM: regular rhythm HEART SOUNDS: S1 normal and S2 normal GI: COMMON NORMALS: soft to palpation INSPECTION: Yes abdominal distension AUSCULTATION: Yes hypoactive bowel sounds PALPATION: Yes soft Extremity: COMMON NORMALS: no joint enlargement and no pedal edema Neuro: COMMON NORMALS: oriented x3 and moves all extremities Skin: COMMON NORMALS: no rashes or lesions noted GENERAL SKIN EXAM: no rashes or lesions noted Data : 08/21/19 04:06 08/21/19 04:06 A&P Assessment and plan (1) Acute appendicitis: Status post laparoscopic appendectomy. Trial CLD per surgery. Some abdominal discomfort after surgery, but otherwise doing well. Status: Acute Qualifiers: Acute appendicitis type: unspecified acute appendicitis type Qualified Code(s): K35.80 - Unspecified acute appendicitis (2) RLQ abdominal pain: Acute appendicitis. Status: Acute (3) Nicotine dependence, cigarettes, uncomplicated: Encourage cessation. Status: Chronic (4) Hyponatremia: Resolved. Status: Acute (5) Hypokalemia: Improved. Status: Acute Additional A&P Information Type 2 diabetes: Last hemoglobin A1c around 6. Consistent carb diet. Sliding scale insulin as needed. Chronic essential hypertension: monitor her blood pressure, holding antihypertensives History of alcohol abuse Attestations Medical Necessity Statement*: Continue post-operative management. Coding Level of Care Code Acute Registered Nurse Maternity for Abida Taylord Diagnoses Acute appendicitis K35.80 Acute appendicitis type: unspecified acute appendicitis type RLQ abdominal pain R10.31 Nicotine dependence, cigarettes, uncomplicated F17.210 Hyponatremia E87.1 Hypokalemia E87.6
[2019-08-21] MEDS: HYDROcodone-acetaminophen 5-325 mg Tablet 1 TAB PO ×2 (15:58→22:18)
[2019-08-21 16:48] LABS: Glucose Point of Care 116 mg/dL (70-110)
[2019-08-21 22:21] LABS: Glucose Point of Care 165 mg/dL (70-110)
[2019-08-21] MEDS: HYDROmorphone 1 mg/mL INJ 1 mL 0.5 MG IVP (22:36)
[2019-08-22] VITALS (13 sets, daily range): BP systolic 102–125; BP diastolic 54–84; PULSE 81–118; RESP 14–24; TEMP 37–38.1; O2SAT 88–97
[2019-08-22] MEDS: HYDROcodone-acetaminophen 5-325 mg Tablet 1 TAB PO (03:52)
--- NOTE | 2019-08-22 03:55 | PC.NURSE ---
AMBULATION Was up to bathroom then ambulated in [place] with nurse before return to bed. Junior well.c/o abd pain and was medicated
[2019-08-22] MEDS: piperacillin-tazobactam 3.375 GM in sodium chloride 0.9% (plus) 50 ML IV ×3 (04:29→20:37)
[2019-08-22] MEDS: HYDROmorphone 1 mg/mL INJ 1 mL 0.5 MG IVP ×5 (04:37→20:44)
[2019-08-22 04:55] LABS: Basophils % 0.2 %; Eosinophils % 0.2 %; Hematocrit 37.4 % (37.0-47.0); Lymphocytes # 1.5 10^3/uL (0.8-4.8); Lymphocytes % 11.3 %; Mean Corpuscular HGB Conc 32.1 g/dL (30.0-36.0); Mean Corpuscular Hemoglobin 27.8 pg (28.0-34.0); Mean Corpuscular Volume 86.8 fL (81-99); Mean Platelet Volume 9.6 fL (7.4-10.4); Monocytes # 0.5 10^3/uL (0.2-0.9); Monocytes % 3.5 %; Neutrophils # 10.9 10^3/uL (1.8-7.7); Neutrophils % 84.3 %; Nucleated Red Blood Cells % 0 %; Platelet Count 295 10^3/cmm (130-400); Red Blood Count 4.31 10^6/uL (4.1-5.3); Red Cell Distribution Width 13.8 % (12.1-15.1); White Blood Count 12.9 10^3/uL (4.0-10.0)
[2019-08-22 05:12] LABS: Alanine Aminotransferase 7 U/L (0-33); Albumin Level 3.1 g/dL (3.5-5.2); Alkaline Phosphatase 84 IU/L (35-105); Anion Gap 16.3 (5-19); Aspartate Amino Transferase 16 U/L (0-32); Blood Urea Nitrogen 5 mg/dL (6-20); Calcium 8.8 mg/dL (8.5-10.5); Carbon Dioxide 21 mmol/L (22-29); Chloride 103 mmol/L (98-107); Globulin 3.1 g/dL (1.3-4.6); Glomerular Filtration Rate 46.8 mL/min (90-130); Glucose 177 mg/dL (65-115); Osmolality Calculated 282 mOsm/kg (285-295); Potassium 4.3 mmol/L (3.5-5.1); Sodium 136 mmol/L (136-145); Total Bilirubin 0.5 mg/dL (0.15-1.2); Total Protein 6.2 g/dL (6.6-8.7)
--- NOTE | 2019-08-22 05:51 | PM.PN ---
Subjective Subjective: Interval history: Overall patient is lying in bed and resting and she feels more comfortable Slight trend up in WBC count associated with element of hypoxia low-grade temperature likely due to not much of mobility and not having much of the breathing exercise Vitals/I&O/Wt Last Vital Signs Temp 98.9 F 08/22/19 04:00 Pulse 113 H 08/22/19 04:00 Resp 14 08/22/19 04:37 BP 105/66 08/22/19 04:00 Pulse Ox 88 L 08/22/19 04:00 08/21/19 08/21/19 08/22/19 14:59 22:59 06:59 Intake Total 1340 / 1340 1150 / 2490 150 / 2640 Output Total 730 / 740 Balance 1330 / 1330 1150 / 2480 -580 / 1900 Weight last 48 hrs Weight 180 lb Physical Exam Narrative: EXAM NARRATIVE: Patient is conscious alert oriented X3 BMI 29 Head and neck examination PERRLA no masses no cervical lymphadenopathy no jaundice Cardiac examination audible S1-S2 no murmurs no gallops no arrhythmias Chest is clear bilateral,abscence of Rhonchi or wheezes,no surgical emphysema yet diminished Abdomen nontender except at the incision site which are clean dry and nondistended soft no organomegaly guarding or rigidity/no signs of peritonitis Data : 08/22/19 04:45 08/22/19 04:45 A&P Assessment and plan (1) Acute appendicitis: Postoperative day 1 and patient is encouraged to for active ambulation 3-4 times a day down the gillespie with physical therapy assistance. Incentive spirometer every hour We will continue to follow on physical therapy recommendations with regard to mcf[facility] placement We will continue coordinating with the hospitalist service Once patient starts passing gas will advance as tolerated We will continue antibiotics for now and will repeat labs in the morning We will have the patient continue to be in observation status Status: Resolved Qualifiers: Acute appendicitis type: unspecified acute appendicitis type Qualified Code(s): K35.80 - Unspecified acute appendicitis Attestations Medical Necessity Statement*: Observation Time Spent in Patient Care: 16 - 35 minutes (>than 50% of time spent in counselling and/or direct pt care on unit). Coding Level of Care Code Acute Traveling Crane Operator for bert Wharton Diagnoses Acute appendicitis K35.80 Acute appendicitis type: unspecified acute appendicitis type
[2019-08-22 06:49] LABS: Glucose Point of Care 149 mg/dL (70-110)
--- NOTE | 2019-08-22 07:41 | ANE.PACU2 ---
 Inpatient post-anesthesia follow up: Airway intact: Yes Vital signs: Temperature 99.6 F Pulse Rate [Monito r] 106 Pulse Rate 106 Respiratory Rate 22 Blood Pressure [Le ft Arm] 143/96 Blood Pressure 106/67 Pulse Oximetry 91 Oxygen Delivery Me thod [ Room Air Current Rate & Del berto] Oxygen Delivery Me thod Room Air Oxygen Flow Rate 8 Fraction of Inspir ed Oxygen Hydration adequate: Yes Nausea and vomiting: No Pain level: 10 Mental status: Baseline
[2019-08-22] MEDS: sodium chloride 0.9% 1,000 ML 100 ML IV ×2 (08:25→17:48)
[2019-08-22 10:55] LABS: Glucose Point of Care 133 mg/dL (70-110)
--- NOTE | 2019-08-22 13:01 | PM.PN ---
Subjective Subjective: Interval history: Belly is still sore. So far no gas or bowel movement. She was asked to walk around by the surgeon, and intends to do so. Vitals/I&O/Wt Last Vital Signs Temp 98.8 F 08/22/19 11:14 Pulse 108 H 08/22/19 11:14 Resp 22 H 08/22/19 11:14 BP 102/54 08/22/19 11:14 Pulse Ox 92 08/22/19 11:14 08/21/19 08/22/19 08/22/19 22:59 06:59 14:59 Intake Total 1150 / 2490 150 / 2640 1650 / 1650 Output Total 730 / 740 200 / 200 Balance 1150 / 2480 -580 / 1900 1450 / 1450 Weight last 48 hrs Weight 81.647 kg Physical Exam Const: COMMON NORMALS: no apparent distress and oriented x3 OTHER: Still appears tired. Unkempt. HENMT: COMMON NORMALS: oropharynx normal Neck/C-Spine: COMMON NORMALS: no JVD Resp: COMMON NORMALS: normal respiratory effort and clear to auscultation bilaterally AUSCULTATION: clear to auscultation bilaterally Cardio: COMMON NORMALS: no JVD, regular rhythm, S1 normal heart sound, S2 normal heart sound and no murmurs RHYTHM: regular rhythm HEART SOUNDS: S1 normal and S2 normal GI: COMMON NORMALS: soft to palpation INSPECTION: Yes abdominal distension AUSCULTATION: Yes hypoactive bowel sounds PALPATION: Yes soft and Yes tender Extremity: COMMON NORMALS: no joint enlargement and no pedal edema Neuro: COMMON NORMALS: oriented x3 and moves all extremities Skin: COMMON NORMALS: no rashes or lesions noted GENERAL SKIN EXAM: no rashes or lesions noted Data : 08/22/19 04:45 08/22/19 04:45 A&P Assessment and plan (1) Acute appendicitis: Status post laparoscopic appendectomy. With some postoperative ileus. Still no gas or bowel movement. Abdomen somewhat tender, although soft. Was asked to walk around, and says intends to do so. Today with leukocytosis. Last night temperature up to 100.3. Some persistent tachycardia. Cannot entirely exclude possible sepsis, although suspect more likely reactive changes after appendicitis, surgery and with pain. Continue Zosyn at this time request blood culture, lactic acid level. Status: Acute Qualifiers: Acute appendicitis type: unspecified acute appendicitis type Qualified Code(s): K35.80 - Unspecified acute appendicitis (2) Nicotine dependence, cigarettes, uncomplicated: Encourage cessation. Status: Chronic (3) Hyponatremia: Resolved. Status: Acute (4) Hypokalemia: Improved. Status: Acute Additional A&P Information Chronic kidney disease versus acute kidney injury: Possible mild acute kidney injury, creatinine up to 1.2, although baseline appears to range between 1.1-1.3. Monitor renal function for now. Avoid NSAIDs. Discontinue NSAIDs on discharge. Type 2 diabetes: Last hemoglobin A1c around 6. Consistent carb diet. Sliding scale insulin as needed. Chronic essential hypertension: monitor her blood pressure, holding antihypertensives History of alcohol abuse Attestations Medical Necessity Statement*: Continue admission for postoperative management after acute appendicitis with laparoscopic appendectomy, possible sepsis. Coding Level of Care Code Acute Cloud Systems Architect [facility] Diagnoses Acute appendicitis K35.80 Acute appendicitis type: unspecified acute appendicitis type Nicotine dependence, cigarettes, uncomplicated F17.210 Hyponatremia E87.1 Hypokalemia E87.6
[2019-08-22 15:29] LABS: Lactic Sepsis W/Reflex 1.1 mmol/L (0.5-2.2)
[2019-08-22 16:55] LABS: Glucose Point of Care 113 mg/dL (70-110)
--- NOTE | 2019-08-22 18:53 | PC.NURSE ---
Pt irritable and non compliant (refusing insulin and up to chair for dinner) throughout shift. Pt refusing to eat anything brought up by dietary staff. Pt stated I would be better off to go home and take care of myself. No one here will give me what I want. This nurse reminded pt we are doing what we can to help her get better. Pt continues to be noncompliant despite multiple attempts to educate and redirect.
[2019-08-23] MEDS: HYDROcodone-acetaminophen 5-325 mg Tablet 1 TAB PO ×3 (00:59→14:57)
[2019-08-23] MEDS: sodium chloride 0.9% 1,000 ML 100 ML IV (04:13)
[2019-08-23] MEDS: piperacillin-tazobactam 3.375 GM in sodium chloride 0.9% (plus) 50 ML IV (04:14)
[2019-08-23 06:07] VITALS: BP 110/72; PULSE 105; RESP 18; TEMP 36.6; O2SAT 97
--- NOTE | 2019-08-23 06:26 | PM.PN ---
Subjective Subjective: Interval history: Patient is lying in bed and did not pass gas yet Patient refused morning labs Vitals/I&O/Wt Last Vital Signs Temp 97.9 F 08/23/19 06:07 Pulse 105 H 08/23/19 06:07 Resp 18 08/23/19 06:07 BP 110/72 08/23/19 06:07 Pulse Ox 97 08/23/19 06:07 08/22/19 08/22/19 08/23/19 14:59 22:59 06:59 Intake Total 1650 / 1650 1048.333 / 2698.333 1250 / 3948.333 Output Total 200 / 200 250 / 450 700 / 1150 Balance 1450 / 1450 798.333 / 2248.333 550 / 2798.333 Physical Exam Narrative: EXAM NARRATIVE: Patient is conscious alert oriented X3 BMI 29 Abdomen nontender except mildly at the right lower quadrant nondistended soft no organomegaly guarding or rigidity/no signs of peritonitis Data : 08/22/19 04:45 08/22/19 04:45 Micro: Microbiology 08/22/19 14:28 Blood Culture - Preliminary Blood SPECIMEN COLLECTED 08/22/19 14:34 Blood Culture - Preliminary Blood SPECIMEN COLLECTED A&P Assessment and plan (1) Acute appendicitis: Postoperative day 2 and patient is encouraged to for active ambulation 3-4 times a day down the gillespie with physical therapy assistance. Will advance diet as tolerated DC IV pain medication Incentive spirometer every hour We will continue to follow on physical therapy recommendations with regard to custodial placement We will continue coordinating with the hospitalist service Once patient starts passing gas will advance as tolerated Plan to discharge home today with home health on oral antibiotic Status: Resolved Qualifiers: Acute appendicitis type: unspecified acute appendicitis type Qualified Code(s): K35.80 - Unspecified acute appendicitis Attestations Medical Necessity Statement*: Observation Time Spent in Patient Care: 16 - 35 minutes (>than 50% of time spent in counselling and/or direct pt care on unit). Coding Level of Care Code Acute Php Mysql Web Developer for Abida Wharton Diagnoses Acute appendicitis K35.80 Acute appendicitis type: unspecified acute appendicitis type
--- NOTE | 2019-08-23 07:51 | PC.NURSE ---
Accu Ck pizza cook stated Pt refused labs and accu cks.
[2019-08-23 07:52] VITALS: BP 124/69; PULSE 110; RESP 18; TEMP 37; O2SAT 95
[2019-08-23 10:46] VITALS: BP 130/68; PULSE 68; RESP 22; TEMP -17.3; TEMP 0.9; O2SAT 95
--- NOTE | 2019-08-23 14:02 | P.SS_ITS ---
Short Stay Summary Providers Date of Admit/Discharge: 08/24/19 Attending Provider: Danial Mccord MD Primary Care Provider: AYE Rojas Chief Complaint: lower abd pain HPI History of Present Illness Jaida Thorpe is a 54 year old female presented with acute appendicitis that required laparoscopic appendectomy. Review of Systems General: Reports: 10 or more systems reviewed and unremarkable except in HPI and below Home Meds/Allergies Home Medications and Allergies Home Medications Medication Instructions Recorded Confirmed Type albuterol sulfate 90 mcg/actuation 2 puff INHALATION QID 06/12/19 08/20/19 History aerosol inhaler metoprolol tartrate 25 mg tablet 12.5 mg PO BID 06/12/19 08/20/19 History pantoprazole 40 mg granules 40 mg PO QDAY 06/12/19 08/20/19 History delayed-release for susp in packet Calcium 600 + D(3) 1 cap PO DAILY 08/20/19 08/20/19 History meloxicam 15 mg PO DAILY 08/20/19 08/20/19 History trazodone 300 mg PO BEDTIME 08/20/19 08/20/19 History Allergies Allergy/AdvReac Type Severity Reaction Status Date / Time duloxetine [From Cymbalta] Allergy Unknown Unknown Verified 08/24/19 07:32 paroxetine [From Paxil] AdvReac Mild ADR-Shakine Verified 08/24/19 07:32 ss bupropion [From Wellbutrin] AdvReac ADR-Vomitin Verified 08/24/19 07:32 g metformin AdvReac ADR-Diarrhe Verified 08/24/19 07:32 a PFSH Acute PFSH: Medical History (Updated 08/24/19 @ 00:00 by ) Alcohol use disorder, moderate, in early remission Asthma Bipolar 1 disorder Bipolar 1 disorder, mixed, moderate History of overdose CAD (coronary artery disease) DDD (degenerative disc disease), lumbar Diabetes Dyslipidemia GERD (gastroesophageal reflux disease) Hx of drug abuse Hypertension Nicotine dependence, cigarettes, uncomplicated Type 2 diabetes mellitus Surgical History (Updated 08/24/19 @ 07:33 by Danial Mccord MD) History of appendectomy History of cholecystectomy (02/13/14) Laparoscopic. Performed by Dr. Wahl at [facility] History of tubal ligation (~1993) . Performed by Dr. Jesus at [facility]. Family History Family/Other Breast cancer aunt and cousin Grandmother Diabetes Hypertension maternal Heart disease maternal Hypercholesteremia maternal Mother Heart disease Hypercholesteremia Social History Smoking and tobacco status: current every day smoker cigarettes Packs smoked per day: 1 Years cigarettes smoked: 30 Second hand smoke exposure: No Alcohol intake: former Year of sobriety/quit date alcohol: Quit 04/2018 Lives independently: Yes Household members: friend(s) Marital status: Current occupational status: disabled History of recent travel: No Current gender identity: Female Vitals/I&O/Wt Last Vital Signs Temp 0.9 F L 08/23/19 10:46 Pulse 68 08/23/19 10:46 Resp 22 H 08/23/19 10:46 BP 130/68 08/23/19 10:46 Pulse Ox 95 08/23/19 10:46 08/22/19 08/23/19 08/23/19 22:59 06:59 14:59 Intake Total 1048.333 / 2698.333 1250 / 3948.333 480 / 480 Output Total 250 / 450 700 / 1150 Balance 798.333 / 2248.333 550 / 2798.333 480 / 480 Physical Exam Narrative: EXAM NARRATIVE: Patient is conscious alert oriented X3 BMI 29 Abdomen nontender nondistended soft no organomegaly guarding or rigidity/no signs of peritonitis Mild tenderness of the right lower quadrant Incisions are clean dry and intact Hospital Course Hospital Course: Overall patient is doing well, tolerating by mouth intake, stable vital signs, good urine output passing gas. SSS Data Data Completed and Pending: Completed Studies During Hospitalization Category Date Time Status CT abdomen pelvis w con* [id number] Urge nt Cat Scan 08/20/19 18:58 Completed Pathology: Surgic al [PTH] Routine Pth 08/21/19 10:09 Completed Pending at discharge Category Date Time Status ES surgery / GI i mages Routine Exams 08/21/19 09:01 Taken Blood Culture Sta t Lab 08/22/19 14:28 Results Complete Blood Co unt w/Auto AM LABS Lab 08/24/19 04:00 Ordered Comprehensive Met abolic Panel AM LA BS Lab 08/24/19 04:00 Ordered Diagnoses at Discharge Discharge Diagnosis (1) Acute appendicitis: Status: Resolved Problem details: Discharge home today on oral antibiotic/home health Assurance and education All questions have been answered Qualifiers: Acute appendicitis type: unspecified acute appendicitis type Qualified Code(s): K35.80 - Unspecified acute appendicitis Discharge Plan Discharge Patient Disposition: Home Health Service Condition: Stable Prescriptions: New Cipro 500 mg tablet 500 mg PO Q12H 5 Days Qty: 10 RF: 0 Flagyl 500 mg tablet 500 mg PO Q8H 5 Days Qty: 15 RF: 0 hydrocodone-acetaminophen 5-325 mg Tablet 1 tab PO Q6H PRN (Reason: Moderate Pain) Qty: 10 RF: 0 Continued Protonix [address] for susp in packet 40 mg PO QDAY RF: 0 albuterol sulfate [Ventolin HFA] 90 mcg/actuation HFA aerosol inhaler 2 puff INHALATION QID RF: 0 metoprolol tartrate 25 mg tablet 12.5 mg PO BID RF: 0 nitroglycerin 0.3 mg tablet, sublingual 0.3 mg SUBLINGUAL Q5M PRN (Reason: chest pain) Qty: 30 RF: 0 terconazole 0.8 % cream 1 appful vaginal .twice daily Qty: 20 RF: 1 aripiprazole [Abilify] 15 mg tablet 15 mg PO BID Qty: 180 RF: 2 hydroxyzine HCl 25 mg tablet 50 mg PO BID PRN (Reason: anxiety) Qty: 180 RF: 2 rosuvastatin [Crestor] 40 mg tablet 40 mg PO QDAY Qty: 30 RF: 0 cyclobenzaprine 10 mg tablet 10 mg PO TID PRN (Reason: muscle spasm) Qty: 30 RF: 0 clopidogrel [Plavix] 75 mg tablet 75 mg PO DAILY Qty: 30 RF: 6 meloxicam 15 mg Tablet 15 mg PO DAILY RF: 0 Calcium 600 + D(3) 600 mg calcium- 200 unit Capsule 1 cap PO DAILY RF: 0 trazodone 100 mg tablet 300 mg PO BEDTIME RF: 0 Discontinued glipizide 5 mg tablet 5 mg PO QDAY RF: 0 acetaminophen [Tylenol] 325 mg Tablet 325 mg PO QID PRN (Reason: Pain) RF: 0 Discharge Orders: Discharge Order (Routine); Ordered 08/23/19 Ordered By: Danial Mccord Referrals: Danial Mccord MD [Physician] - 09/04/19 2:30 pm () Lela Lopez FNP [Primary Care Provider] - 4-7 days (Please call Monday to set up a follow up appointment) Discharge Diet: Advance as tolerated Patient Instructions: Ciprofloxacin (By mouth), Hydrocodone/Acetaminophen (By mouth), Metronidazole (By mouth), Appendicitis (GEN) Activity Restrictions/Additional Instructions: 1. Patient can shower after 48 hours from surgery 2. Remove Dermabond 7 to 10 days after surgery 3. Up and walking as tolerated 4. Do lift more than 5 pounds first 2 weeks after surgery and not more than 25 pounds 6 to 8 weeks after surgery. 5. Do not operate heavy machinery or drive while using pain medications. 6.Contact the office or return to the ER for worsening nausea vomiting fevers or chills, or noticing any redness around incision sites or discharge. 6. Advised to return to ER or contact my office if there are any signs of infection like, increasing pain, fevers, chills, redness or drainage of pus. 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
[2019-08-23 14:14] VITALS: BP 130/68; PULSE 68; RESP 22; TEMP -17.3; TEMP 0.9; O2SAT 95
--- NOTE | 2019-08-23 14:45 | P.PN_ITS ---
Subjective Subjective: Interval history: No acute event overnight. Patient denies of any nausea, vomiting is sitting in chair having her diet. She states she has not had any bowel movements but has been passing flatus since morning. She is complaining of abdominal pain. She denies of having any dizziness, headache, palpitations, chest pain. Vitals/I&O/Wt Last Vital Signs Temp 0.9 F L 08/23/19 14:14 Pulse 68 08/23/19 14:14 Resp 22 H 08/23/19 14:14 BP 130/68 08/23/19 14:14 Pulse Ox 95 08/23/19 14:14 08/22/19 08/23/19 08/23/19 22:59 06:59 14:59 Intake Total 1048.333 / 2698.333 1250 / 3948.333 480 / 480 Output Total 250 / 450 700 / 1150 Balance 798.333 / 2248.333 550 / 2798.333 480 / 480 Physical Exam Const: COMMON NORMALS: no apparent distress and oriented x3 OTHER: Mild distress because of abdominal pain. HENMT: COMMON NORMALS: oropharynx normal Neck/C-Spine: COMMON NORMALS: no JVD Resp: COMMON NORMALS: normal respiratory effort and clear to auscultation bilaterally AUSCULTATION: clear to auscultation bilaterally Cardio: COMMON NORMALS: no JVD, regular rhythm, S1 normal heart sound, S2 normal heart sound and no murmurs RHYTHM: regular rhythm HEART SOUNDS: S1 normal and S2 normal GI: COMMON NORMALS: soft to palpation INSPECTION: Yes abdominal distension AUSCULTATION: No hypoactive bowel sounds PALPATION: Yes soft and Yes tender Extremity: COMMON NORMALS: no joint enlargement and no pedal edema Neuro: COMMON NORMALS: oriented x3 and moves all extremities Skin: COMMON NORMALS: no rashes or lesions noted GENERAL SKIN EXAM: no rashes or lesions noted Data : 08/22/19 04:45 08/22/19 04:45 Micro: Microbiology 08/22/19 14:28 Blood Culture - Preliminary Blood NEGATIVE TO DATE 08/22/19 14:34 Blood Culture - Preliminary Blood NEGATIVE TO DATE A&P Assessment and plan (1) Acute appendicitis: Status post laparoscopic appendectomy. Postop day 2 Ileus improving. Patient passing flatus but no bowel movements. Patient is tolerating diet well. Management as per surgical team. Status: Resolved Qualifiers: Acute appendicitis type: unspecified acute appendicitis type Qualified Code(s): K35.80 - Unspecified acute appendicitis (2) Hyponatremia: Resolved. Status: Acute (3) Hypokalemia: Resolved. Status: Acute (4) Nicotine dependence, cigarettes, uncomplicated: Encourage cessation. Status: Chronic Additional A&P Information Leukocytosis/fever: Most likely reactive. Patient has been having one spike of fever every day in 24 hours of low-grade fever going up to 100.4 last 24 hours. Most likely inflammatory along with atelectasis. Patient refused blood work today. As her overall status is improving most likely not infectious. Lactic acid normal. We will stop the Zosyn and switch over to ciprofloxacin and Flagyl orally as pacheco mullins is tolerating oral diet well. If okay with surgery patient can be discharged on above antibiotics to finish a course of 5 days. Chronic kidney disease versus acute kidney injury: Possible mild acute kidney injury, creatinine up to 1.2, although baseline appears to range between 1.1- 1.3. Monitor renal function for now. Avoid NSAIDs. Discontinue NSAIDs on discharge. Type 2 diabetes: Last hemoglobin A1c around 6. Consistent carb diet. Patient has not required any insulin since admission. For now patient will not be taking glipizide as an outpatient and has been advised to monitor her blood sugars daily. Chronic essential hypertension: monitor her blood pressure, holding antihypert ensives History of alcohol abuse Patient can be discharged as per medicine point of view. Patient to be followed up with Dr. Mccord as per his recommendations. Patient should be on ciprofloxacin and Flagyl as an outpatient for overall 5 days. Discussed with patient in detail regarding danger signs post discharge. Physical therapy evaluation noted. Will discuss with care coordination team for possible home health. 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
[2019-08-23 15:39] VITALS: BP 136/93; PULSE 119; RESP 18; TEMP 36.9; O2SAT 92
== END 2019-08-23 16:26 | disposition home health service (06) ==
LOC: ER 19:56 → MEDSURG 08-21 00:47
PROVIDERS: Internal Medicine; Admitting Provider Surgery; Emergency Provider Emergency Medicine; PCP Nurse Practitioner Family; Visit Provider Surgery
PROC: 0DTJ4ZZ Resection of Appendix, Percutaneous Endoscopic Approach (ICD-10-PCS; CPT 44970; principal; 2019-08-21 08:50)
DX: K35.80 Unspecified acute appendicitis (principal); F17.210 Nicotine dependence, cigarettes, uncomplicated; E87.1 Hypo-osmolality and hyponatremia; E87.6 Hypokalemia; Z79.84 Long term (current) use of oral hypoglycemic drugs; J45.909 Unspecified asthma, uncomplicated; I25.10 Atherosclerotic heart disease of native coronary artery without angina pectoris; Z83.3 Family history of diabetes mellitus; Z82.49 Family history of ischemic heart disease and other diseases of the circulatory system; E11.22 Type 2 diabetes mellitus with diabetic chronic kidney disease; I12.9 Hypertensive chronic kidney disease with stage 1 through stage 4 chronic kidney disease, or unspecified chronic kidney disease; N18.9 Chronic kidney disease, unspecified
CPT/HCPCS: 44970; 12345; 36415; 36416; 74177; 80048; 80053; 80307; 81000; 81003; 82962; 83605; 83690; 83735; 85025; 86850; 86900; 87040; 88304; 96361; 96365; 96366; 96374; 96375; 96376; 97161; 97530; 99283; 99285; G0378; J0131; J0690; J1170; J1885; J2001; J2270; J2405; J2543; J2704; J2710; J3010; J3490; J7030; Q9967

== ENCOUNTER → 2019-09-10 17:50 | Outpatient (BNVA) | payer MEDICARE, MEDICAID, SELFPAY | PROVIDERS: PCP Nurse Practitioner Family; Visit Provider Nurse Practitioner Family | DX: K52.9 Noninfective gastroenteritis and colitis, unspecified (principal); E78.5 Hyperlipidemia, unspecified; R00.0 Tachycardia, unspecified; R73.09 Other abnormal glucose | CPT/HCPCS: 36416; 80053; 80061; 82962; 85025 ==

== ENCOUNTER → 2019-09-27 07:35 | Outpatient (BNVA) | payer MEDICARE, MEDICAID, SELFPAY | PROVIDERS: PCP Nurse Practitioner Family; Visit Provider Nurse Practitioner Psychiatric/Mental Health | DX: F31.62 Bipolar disorder, current episode mixed, moderate (principal); F10.21 Alcohol dependence, in remission; F17.210 Nicotine dependence, cigarettes, uncomplicated; Z79.899 Other long term (current) drug therapy | CPT/HCPCS: 99213 ==

== ENCOUNTER → 2019-12-09 07:30 | Outpatient (BNVA) | payer MEDICARE, MEDICAID, SELFPAY | PROVIDERS: PCP Nurse Practitioner Family; Visit Provider Nurse Practitioner Psychiatric/Mental Health | DX: F31.62 Bipolar disorder, current episode mixed, moderate (principal); F10.21 Alcohol dependence, in remission; F17.210 Nicotine dependence, cigarettes, uncomplicated | CPT/HCPCS: 99213 ==

== ENCOUNTER → 2019-12-20 09:11 | Outpatient (BNVA) | payer MEDICARE, MEDICAID, SELFPAY | PROVIDERS: PCP Nurse Practitioner Family; Visit Provider Nurse Practitioner Psychiatric/Mental Health | DX: F31.62 Bipolar disorder, current episode mixed, moderate (principal); F10.21 Alcohol dependence, in remission; F17.210 Nicotine dependence, cigarettes, uncomplicated | CPT/HCPCS: 99213 ==

== ENCOUNTER → 2019-12-30 15:30 | Outpatient (BNVA) | payer MEDICARE, MEDICAID, SELFPAY | PROVIDERS: PCP Nurse Practitioner Family; Visit Provider Nurse Practitioner Family | DX: R25.2 Cramp and spasm (principal); M51.36 Other intervertebral disc degeneration, lumbar region; E11.9 Type 2 diabetes mellitus without complications; K21.9 Gastro-esophageal reflux disease without esophagitis; F17.210 Nicotine dependence, cigarettes, uncomplicated; I10 Essential (primary) hypertension; E78.5 Hyperlipidemia, unspecified | CPT/HCPCS: 80053; 80061; 82607; 83036; 83735 ==

== ENCOUNTER → 2020-01-13 09:43 | Outpatient (BNVA) | payer MEDICARE, MEDICAID, SELFPAY | PROVIDERS: PCP Nurse Practitioner Family; Visit Provider Nurse Practitioner Psychiatric/Mental Health | DX: F31.62 Bipolar disorder, current episode mixed, moderate (principal); F10.21 Alcohol dependence, in remission; F17.210 Nicotine dependence, cigarettes, uncomplicated | CPT/HCPCS: 99214 ==

== ENCOUNTER → 2020-01-31 08:22 | Outpatient (BNVA) | payer MEDICARE, MEDICAID, SELFPAY | PROVIDERS: PCP Nurse Practitioner Family; Visit Provider Nurse Practitioner Psychiatric/Mental Health | DX: F31.62 Bipolar disorder, current episode mixed, moderate (principal); F10.21 Alcohol dependence, in remission; F17.210 Nicotine dependence, cigarettes, uncomplicated | CPT/HCPCS: 99213 ==

== ENCOUNTER 2020-02-13 14:11 | Outpatient (CLI) | payer MEDICARE, MEDICAID, SELFPAY ==
--- NOTE | 2020-02-13 14:23 | MM_ITS ---
WS: [id number] BILATERAL SCREENING DIGITAL MAMMOGRAM WITH CAD HISTORY: SCREENING COMPARISON: 01/04/2019, 11/30/2016 and 12/20/2017. Bilateral CC and MLO views submitted. Computer aided detection analyzed. Breast composition: There are scattered areas of fibroglandular density. No suspicious masses, microc alcifications or architectural distortion. Stable 4 mm nodule anterior LEFT breast at 12:00. MM/[place] [id number] IMPRESSION: BI-RADS: 2-Benign FOLLOW UP: 1 Year Follow-up
== END 2020-02-13 14:12 | disposition home or self-care (01) ==
LOC: RADSHAW 14:18
PROVIDERS: PCP Nurse Practitioner Family; Visit Provider Nurse Practitioner Family
DX: Z12.31 Encounter for screening mammogram for malignant neoplasm of breast (principal)
CPT/HCPCS: 77067

== ENCOUNTER → 2020-02-24 08:16 | Outpatient (BNVA) | payer MEDICARE, MEDICAID, SELFPAY | PROVIDERS: PCP Nurse Practitioner Family; Visit Provider Nurse Practitioner Psychiatric/Mental Health | DX: F31.62 Bipolar disorder, current episode mixed, moderate (principal); F10.21 Alcohol dependence, in remission; F17.210 Nicotine dependence, cigarettes, uncomplicated | CPT/HCPCS: 99213 ==

== ENCOUNTER → 2020-03-26 08:39 | Outpatient (BNVA) | payer MEDICARE, MEDICAID, SELFPAY | PROVIDERS: PCP Nurse Practitioner Family; Visit Provider Nurse Practitioner Psychiatric/Mental Health | DX: F31.62 Bipolar disorder, current episode mixed, moderate (principal); F10.21 Alcohol dependence, in remission; F17.210 Nicotine dependence, cigarettes, uncomplicated | CPT/HCPCS: 99213 ==

== ENCOUNTER 2020-06-03 07:22 | Outpatient (CLI) | payer MEDICARE, MEDICAID, SELFPAY ==
[2020-06-03 07:43] VITALS: BMI 30.7
--- NOTE | 2020-06-03 07:44 | ECG_ITS ---
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 The perfusion scan will be documented separately. DATA: Baseline heart rate was 87 beats per minute. Baseline blood pressure was 135/90 millimeters of mercury. Target heart rate was 166. Maximum heart rate achieved was 107. which was 64 % of the predicted target heart rate. Maximum blood pressure was 136/90 millimeters of mercury. The reason for ending the test was completion of the protocol. The patient did not experience any symptoms. ELECTROCARDIOGRAM: BASELINE: Sinus rhythm. Normal axis. Incomplete right bundle branch block EXERCISE: After Lexiscan injection, no ST-T changes suggestive of ischemic noted. No arrhythmia noted. CONCLUSION: Please note due to baseline abnormality of the EKG specificity and sensitivity of the EKG portion of LexiScan MIBI stress test will be low 1. EKG not suggestive of ischemia 2. Lexiscan injection unremarkable. 3. Perfusion scan will be documented separately. Electronically Signed On 06-04-2020 18:09:39 BUCKET WASH OPERATOR by HAYDEN RODRÍGUEZ [id number]
--- NOTE | 2020-06-03 07:45 | NMCV_ITS ---
NM maninder perf SPECT r/s* [id number] Jaida Thorpe Age: 54 Gender: F : 1965 Exam Date: 06/03/2020 07:45 Ordering Phys: Hayden Rodríguez MD ([email or web address]) Technologist: JIMI Thompson Exam Location: [facility] Indications: Chest pain STRESS TEST Please see separate stress test report in [facility] for full findings IMAGE PROTOCOL Rest/Stress 1 Lexiscan Day Radiopharmaceutical Dose (mCi) Administration Site Administered by Rest: Tc-99m 10.9 IV JIMI Diaz Sestamibi Stress:Tc-99m 32.8 IV JIMI Thompson Sestamibi Rest: 03-Jun-2020 60 Discovery 630 Stress: 03-Jun-2020 45 Discovery 630 0.4mg Lexiscan. Images obtained in supine and prone position. SPECT RESULTS Technical Quality: Good Raw Data Analysis: Normal Image Corrections: No attenuation or motion correction applied Summed Stress Score: 1 Summed Rest Score: 0 Summed Difference Score: 1 PERFUSION FINDINGS Small area of reversibility noted in basal inferior and inferolateral lateral wall which in the face of other parameters and absence of wall motion abnormality appear to be an artifact. FUNCTIONAL RESULTS (calculated via Gated SPECT) Stress Image LV EF (%): 71 Stress EDV (mL):59 TID: 0.79 Stress ESV (mL):17 Rest Image LV EF (%): 71 FUNCTIONAL FINDINGS: There is normal left ventricular systolic function. IMPRESSIONS This study is negative for ischemia. Small area of basal inferior and inferolateral perfusion defect on stress images could be due to artifact. EKG segment will be documented separately. Hayden Rodríguez MD (Electronically Signed) Final Date: 05 June 2020 12:48 S
[2020-06-03] MEDS: regadenoson 0.4 Mg/5 ml Syringe IVP (09:20)
[2020-06-03 09:48] VITALS: BP 136/91; PULSE 99
== END 2020-06-03 07:23 | disposition home or self-care (01) ==
PROVIDERS: PCP Nurse Practitioner Family; Visit Provider Internal Medicine Cardiovascular Disease
DX: I25.10 Atherosclerotic heart disease of native coronary artery without angina pectoris (principal); R07.9 Chest pain, unspecified
CPT/HCPCS: 78452; 93017; A9500; J2785

== ENCOUNTER → 2020-06-17 09:18 | Outpatient (BNVA) | payer MEDICARE, MEDICAID, SELFPAY | PROVIDERS: PCP Nurse Practitioner Family; Visit Provider Nurse Practitioner Psychiatric/Mental Health | DX: F31.62 Bipolar disorder, current episode mixed, moderate (principal); F10.21 Alcohol dependence, in remission; F17.210 Nicotine dependence, cigarettes, uncomplicated | CPT/HCPCS: 99213 ==

== ENCOUNTER 2020-07-06 21:14 | Emergency (ER) | payer MEDICARE, MEDICAID, SELFPAY ==
[2020-07-06 21:17] VITALS: BP 159/102; PULSE 125; RESP 22; TEMP 37; O2SAT 98; BMI 30.7
--- NOTE | 2020-07-06 21:24 | ECG_ITS ---
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 Measurements Intervals Stout Rate: 121 P: 66 NM: 145 QRS: -60 QRSD: 85 T: 70 QT: 431 QTc: 612 Interpretive Statements SINUS TACHYCARDIA POSSIBLE RIGHT VENTRICULAR CONDUCTION DELAY [RSR (QR) IN V1/V2] POSSIBLE ANTERIOR MYOCARDIAL INFARCTION , PROBABLY OLD INFERIOR MYOCARDIAL INFARCTION,PROBABLY OLD Compared to ECG 07/27/2017 21:23:14 Left anterior fascicular block now present Sinus rhythm no longer present Myocardial infarct finding still present Electronically Signed On 07-07-2020 5:52:47 MANAGER STATISTICAL by Viktoria Hitchcock M.D. [id number]
--- NOTE | 2020-07-06 21:24 | XR_ITS ---
WS: [id number] Exam: XR chest 1V portable [id number] Date/Time of Exam: 07/06/2020 9:27 PM Reason For Exam: sob Comparison 06/22/2018. Findings: The lungs are clear and fully expanded. Costophrenic angles are sharp. No infiltrates. Bronchovascula r relief appears normal. Cardiac silhouette is unremarkable. Bony elements are intact. XR/XR chest 1V portable [id number] IMPRESSION: Unremarkable chest radiograph.
--- NOTE | 2020-07-06 21:35 | W.ED.CHESTPA ---
HPI - Chest Pain General: Chief Complaint: Chest Pain Stated Complaint: NOT FEELING WELL Time Seen by Provider: 07/06/20 21:22 Source: patient and EMS Mode of arrival: EMS Limitations: no limitations History of Present Illness: HPI narrative: 54-year-old female states over the last 2 to 3 hours she has just not been feeling well. States she had a burning sensation in her chest started on her abdomen. She states that she is a diabetic and also has had high blood sugars. EMS blood sugars were in the 500s. States she does have a history of heart disease but this does not feel like her previous cardiac issues. She denies any vomiting or diarrhea. Denies any fever. Associated symptoms: Reports nausea; Deny abdominal pain, dyspnea, fever(s) or vomiting Review of Systems Const: Denies: fever(s), chills, body aches or change in appetite Eyes: Denies: blurry vision or eye discomfort ENMT: Denies: throat pain or dental pain Card: Reports: chest pain Resp: Denies: dyspnea GI: Reports: nausea; Denies: abdominal pain, vomiting or diarrhea : Denies: dysuria Musc: Denies: neck pain or back pain Skin/Breast: Denies: rash Neuro: Denies: headache(s) Psych: Denies: depression Emery/Lymph: Denies: easy bruising All/Imm: Denies: urticaria PFSH ED PFSH: Medical History Alcohol use disorder, moderate, in early remission Asthma Bipolar 1 disorder, mixed, moderate History of overdose CAD (coronary artery disease) DDD (degenerative disc disease), lumbar Diabetes Dyslipidemia Dyspareunia GERD (gastroesophageal reflux disease) Hx of drug abuse Hypertension Nicotine dependence, cigarettes, uncomplicated Type 2 diabetes mellitus Surgical History H/O heart artery stent (~2018) 2 stents placed History of appendectomy History of cholecystectomy (02/13/14) Laparoscopic. Performed by Dr. Wahl at [facility] History of tubal ligation (~1993) . Performed by Dr. Jesus at [facility]. Family History Family/Other Breast cancer aunt and cousin Grandmother Diabetes Hypertension maternal Heart disease maternal Hypercholesteremia maternal Mother Heart disease Hypercholesteremia Social History (Updated 06/12/20 @ 15:10 by Vianey Colunga APN, RADHA) Marital status: Physical Exam Const: COMMON NORMALS: no acute distress, patient oriented x3 and healthy appearing HENMT: COMMON NORMALS: normocephalic and atraumatic HEAD & SCALP: normocephalic and atraumatic Eye: COMMON NORMALS: Equal, round and reactive pupils present and EOMs intact bilaterally PUPIL: Yes Equal, round and reactive pupils present Neck/C-Spine: COMMON NORMALS: full ROM and supple Chest: COMMONS NORMALS: normal inspection of the chest and normal palpation of entire chest wall Resp: COMMON NORMALS: normal respiratory effort, No retractions, No use of accessory muscles and clear to auscultation bilaterally AUSCULTATION: clear to auscultation bilaterally Cardio: COMMON NORMALS: regular rate, regular rhythm and No murmurs present (Cardio) RATE: regular rate RHYTHM: regular rhythm GI: COMMON NORMALS: Normal to inspection, nondistended, normoactive bowel sounds present, Soft to palpation, non-tender and no masses PALPATION: Yes Soft to palpation Extremity: COMMON NORMALS: normal to inspection and full ROM Neuro: COMMON NORMALS: patient oriented x3, moves all extremities and no focal motor deficits Psych: COMMON NORMALS: mental status grossly normal, Normal thought process present and cooperative THOUGHT PROCESS: Normal thought process present Skin: COMMON NORMALS: no rashes or lesions noted and no wounds GENERAL SKIN EXAM: no rashes or lesions noted Course Vital Signs: Vital signs: Vital Signs Temperature 98.6 F 07/06/20 21:17 Pulse Rate 107 H 07/07/20 00:42 Respiratory Rate 18 07/07/20 00:42 Blood Pressure 145/102 07/07/20 00:42 Pulse Oximetry 95 07/07/20 00:42 MDM - Chest Pain MDM Narrative: Medical decision making narrative: Patient presents with chest pains atypical in nature. History is more consistent with GERD and she does feel improved after GI cocktail. Initial repeat troponin and D-dimer are negative. Her blood sugar is improved as well. She is stable for discharge and is to follow-up with her PCP and return if worsening. Lab Data: Labs: Lab Results 07/06/20 07/06/20 07/06/20 Range/Units 22:00 22:00 22:00 WBC 13.1 H (4.0-10.0) 10^3/ uL RBC 5.26 (4.1-5.3) 10^6/u L Hgb 15.2 (11.5-15.3) g/dL Hct 46.2 (37.0-47.0) % MCV 87.8 (81-99) fL MCH 28.9 (28.0-34.0) pg MCHC 32.9 (30.0-36.0) g/dL RDW 13.0 (12.1-15.1) % Plt Count 402 H (130-400) 10^3/c mm MPV 10.4 (7.4-10.4) fL Neut % (Auto) 65.2 % Lymph % (Auto) 27.9 % Pender % (Auto) 5.1 % Eos % (Auto) 1.1 % Baso % (Auto) 0.3 % Neut # (Auto) 8.51 H (1.8-7.7) 10^3/u L Lymph # (Auto) 3.6 (0.8-4.8) 10^3/u L Pender # (Auto) 0.7 (0.2-0.9) 10^3/u L Eos # (Auto) 0.2 (0.0-0.8) 10^3/u L Baso # (Auto) 0.0 (0.0-0.1) 10^3/u L Nucleated RBC % (a uto) 0 % Nucleated RBCs # 0.0 /100WBC D-Dimer (0-0.59) ug/mIFE U Sodium 134 L (136-145) mmol/L Potassium 4.1 (3.5-5.1) mmol/L Chloride 94 L (98-107) mmol/L Carbon Dioxide 23 (22-29) mmol/L Anion Gap 21.1 H (5-19) BUN 20 (6-20) mg/dL Creatinine 1.2 H (0.5-0.9) mg/dL GFR Calculation 46.8 L (90-130) mL/min Glucose 466 H (65-115) mg/dL POC Glucose (70-110) mg/dL Calculated Osmolal ity 301 H (285-295) mOsm/k g Calcium 10.3 (8.5-10.5) mg/dL Total Bilirubin 0.4 (0.15-1.2) mg/dL AST 18 (0-32) U/L ALT 21 (0-33) U/L Alkaline Phosphata se 109 H (35-105) IU/L Troponin T Baselin e 10 (0-10) ng/L Troponin T 120 Min cocopah (0-10) ng/L Delta Troponin T (0-10) ABS# Total Protein 8.0 (6.6-8.7) g/dL Albumin 4.2 (3.5-5.2) g/dL Globulin 3.8 (1.3-4.6) g/dL Lipase 88 H (13-60) U/L 07/06/20 07/06/20 07/06/20 Range/Units 22:00 22:03 23:00 WBC (4.0-10.0) 10^3/ uL RBC (4.1-5.3) 10^6/u L Hgb (11.5-15.3) g/dL Hct (37.0-47.0) % MCV (81-99) fL MCH (28.0-34.0) pg MCHC (30.0-36.0) g/dL RDW (12.1-15.1) % Plt Count (130-400) 10^3/c mm MPV (7.4-10.4) fL Neut % (Auto) % Lymph % (Auto) % Pender % (Auto) % Eos % (Auto) % Baso % (Auto) % Neut # (Auto) (1.8-7.7) 10^3/u L Lymph # (Auto) (0.8-4.8) 10^3/u L Pender # (Auto) (0.2-0.9) 10^3/u L Eos # (Auto) (0.0-0.8) 10^3/u L Baso # (Auto) (0.0-0.1) 10^3/u L Nucleated RBC % (a uto) % Nucleated RBCs # /100WBC D-Dimer 0.45 (0-0.59) ug/mIFE U Sodium (136-145) mmol/L Potassium (3.5-5.1) mmol/L Chloride (98-107) mmol/L Carbon Dioxide (22-29) mmol/L Anion Gap (5-19) BUN (6-20) mg/dL Creatinine (0.5-0.9) mg/dL GFR Calculation (90-130) mL/min Glucose (65-115) mg/dL POC Glucose 435 H 423 H (70-110) mg/dL Calculated Osmolal ity (285-295) mOsm/k g Calcium (8.5-10.5) mg/dL Total Bilirubin (0.15-1.2) mg/dL AST (0-32) U/L ALT (0-33) U/L Alkaline Phosphata se (35-105) IU/L Troponin T Baselin e (0-10) ng/L Troponin T 120 Min cocopah (0-10) ng/L Delta Troponin T (0-10) ABS# Total Protein (6.6-8.7) g/dL Albumin (3.5-5.2) g/dL Globulin (1.3-4.6) g/dL Lipase (13-60) U/L 07/06/20 07/07/20 Range/Units 23:38 00:39 WBC (4.0-10.0) 10^3/ uL RBC (4.1-5.3) 10^6/u L Hgb (11.5-15.3) g/dL Hct (37.0-47.0) % MCV (81-99) fL MCH (28.0-34.0) pg MCHC (30.0-36.0) g/dL RDW (12.1-15.1) % Plt Count (130-400) 10^3/c mm MPV (7.4-10.4) fL Neut % (Auto) % Lymph % (Auto) % Pender % (Auto) % Eos % (Auto) % Baso % (Auto) % Neut # (Auto) (1.8-7.7) 10^3/u L Lymph # (Auto) (0.8-4.8) 10^3/u L Pender # (Auto) (0.2-0.9) 10^3/u L Eos # (Auto) (0.0-0.8) 10^3/u L Baso # (Auto) (0.0-0.1) 10^3/u L Nucleated RBC % (a uto) % Nucleated RBCs # /100WBC D-Dimer (0-0.59) ug/mIFE U Sodium (136-145) mmol/L Potassium (3.5-5.1) mmol/L Chloride (98-107) mmol/L Carbon Dioxide (22-29) mmol/L Anion Gap (5-19) BUN (6-20) mg/dL Creatinine (0.5-0.9) mg/dL GFR Calculation (90-130) mL/min Glucose (65-115) mg/dL POC Glucose 315 H (70-110) mg/dL Calculated Osmolal ity (285-295) mOsm/k g Calcium (8.5-10.5) mg/dL Total Bilirubin (0.15-1.2) mg/dL AST (0-32) U/L ALT (0-33) U/L Alkaline Phosphata se (35-105) IU/L Troponin T Baselin e (0-10) ng/L Troponin T 120 Min cocopah 10.64 H (0-10) ng/L Delta Troponin T 0.64 (0-10) ABS# Total Protein (6.6-8.7) g/dL Albumin (3.5-5.2) g/dL Globulin (1.3-4.6) g/dL Lipase (13-60) U/L Imaging Data^: CXR: Attestation: I personally reviewed and interpreted this imaging study as follows: My impression: No acute ab malady EKG Data^: EKG 1: Attestation: I personally reviewed and interpreted this EKG as follows: EKG interpretation date: 07/06/20 EKG interpretation time: 21:40 Interpretation: sinus tach hr [address] or t wave abnormalities qrs 85 qtc 503 Discharge Plan Discharge Patient Disposition: Home Clinical Impression: Atypical chest pain, Hyperglycemia Condition: Stable Prescriptions: No Action albuterol sulfate [Ventolin HFA] 90 mcg/actuation HFA aerosol inhaler 2 puff INHALATION QID RF: 0 nitroglycerin 0.3 mg tablet, sublingual 0.3 mg SUBLINGUAL Q5M PRN (Reason: chest pain) Qty: 30 RF: 0 hydrocodone-acetaminophen 5-325 mg tablet 1 tab PO TID PRNRF: 0 trazodone 150 mg tablet 150 mg PO .bedtime PRN (Reason: sleep) Qty: 90 RF: 2 tizanidine 4 mg capsule 4 mg PO DAILY RF: 0 isosorbide mononitrate 30 mg tablet extended release 24 hr 15 mg PO BID Qty: 90 RF: 3 Calcium 600 + D(3) 600 mg calcium- 200 unit capsule 1 cap PO DAILY Qty: 90 RF: 3 pantoprazole 40 mg tablet,delayed release (DR/EC) 40 mg PO BID Qty: 60 RF: 2 clopidogrel [Plavix] 75 mg tablet 75 mg PO DAILY Qty: 30 RF: 6 metoprolol tartrate 25 mg tablet 12.5 mg PO BID Qty: 90 RF: 3 meloxicam 15 mg tablet 15 mg PO DAILY Qty: 90 RF: 1 glipizide 5 mg tablet extended release 24hr 5 mg PO DAILY Qty: 30 RF: 2 aripiprazole [Abilify] 30 mg tablet 30 mg PO DAILY Qty: 90 RF: 2 gabapentin 100 mg capsule 100 mg PO BID Qty: 180 RF: 2 hydroxyzine HCl 50 mg tablet 50 mg PO BID PRN (Reason: anxiety) Qty: 180 RF: 1 rosuvastatin [Crestor] 40 mg tablet 40 mg PO QDAY Qty: 30 RF: 0 Discharge Orders: Discharge ED (Routine); Ordered 07/07/20 Ordered By: Stephen Mayberry Referrals: Kalee Sellers APN [Primary Care Provider] - 1-3 days Discharge Diet: Advance as tolerated Discharge Activity: Resume usual activity Patient Instructions: Chest Pain (ED), Diabetic Hyperglycemia (ED) Coding Level of Care Code ED Cradle Placer for Chg Fwd Exam Comprehensive
[2020-07-06] MEDS: sodium chloride 0.9% 1,000 ML 999 ML IV ×2 (21:40→23:42)
[2020-07-06] MEDS: ondansetron 2 mg/ML SDV 2 mL 4 MG IVP (21:41)
[2020-07-06] MEDS: morphine 4 mg/mL SDV 1 mL IVP (21:42)
--- NOTE | 2020-07-06 21:44 | PC.NURSE ---
EKG taken and given to Dr. Mayberry
[2020-07-06 22:09] LABS: Glucose Point of Care 435 mg/dL (70-110)
[2020-07-06] MEDS: insulin regular-human 100 units/1 mL 5 UNIT IVP (22:13)
[2020-07-06 22:20] LABS: Basophils % 0.3 %; Eosinophils # 0.2 10^3/uL (0.0-0.8); Eosinophils % 1.1 %; Hematocrit 46.2 % (37.0-47.0); Hemoglobin 15.2 g/dL (11.5-15.3); Lymphocytes # 3.6 10^3/uL (0.8-4.8); Lymphocytes % 27.9 %; Mean Corpuscular HGB Conc 32.9 g/dL (30.0-36.0); Mean Corpuscular Hemoglobin 28.9 pg (28.0-34.0); Mean Corpuscular Volume 87.8 fL (81-99); Mean Platelet Volume 10.4 fL (7.4-10.4); Monocytes # 0.7 10^3/uL (0.2-0.9); Monocytes % 5.1 %; Neutrophils # 8.51 10^3/uL (1.8-7.7); Neutrophils % 65.2 %; Nucleated Red Blood Cells % 0 %; Platelet Count 402 10^3/cmm (130-400); Red Blood Count 5.26 10^6/uL (4.1-5.3); White Blood Count 13.1 10^3/uL (4.0-10.0)
[2020-07-06 22:28] LABS: D Dimer 0.45 ug/mIFEU (0-0.59)
[2020-07-06 22:38] LABS: Alanine Aminotransferase 21 U/L (0-33); Albumin Level 4.2 g/dL (3.5-5.2); Alkaline Phosphatase 109 IU/L (35-105); Anion Gap 21.1 (5-19); Aspartate Amino Transferase 18 U/L (0-32); Blood Urea Nitrogen 20 mg/dL (6-20); Calcium 10.3 mg/dL (8.5-10.5); Carbon Dioxide 23 mmol/L (22-29); Chloride 94 mmol/L (98-107); Globulin 3.8 g/dL (1.3-4.6); Glomerular Filtration Rate 46.8 mL/min (90-130); Glucose 466 mg/dL (65-115); Lipase 88 U/L (13-60); Osmolality Calculated 301 mOsm/kg (285-295); Potassium 4.1 mmol/L (3.5-5.1); Sodium 134 mmol/L (136-145); Total Bilirubin 0.4 mg/dL (0.15-1.2)
[2020-07-06 22:40] LABS: Troponin(5th) Baseline 10 ng/L (0-10)
[2020-07-06 23:03] VITALS: BP 139/102; PULSE 109; RESP 21; O2SAT 97
[2020-07-06 23:05] LABS: Glucose Point of Care 423 mg/dL (70-110)
[2020-07-06 23:48] VITALS: BP 158/114; PULSE 112; O2SAT 99
[2020-07-07 00:15] LABS: Troponin 5 2HR 10.64 ng/L (0-10); Troponin 5 2HR Delta 0.64 ABS# (0-10)
[2020-07-07 00:42] VITALS: BP 145/102; PULSE 107; RESP 18; O2SAT 95
[2020-07-07 00:44] LABS: Glucose Point of Care 315 mg/dL (70-110)
[2020-07-07] MEDS: lidocaine 2% viscous 15 ML, aluminum-mag hydrox-simethicon 30 ML, sucralfate oral liq 1 GM PO (00:55)
[2020-07-07 01:27] VITALS: BP 129/96; PULSE 110; RESP 18; O2SAT 99
== END 2020-07-07 01:27 | disposition home or self-care (01) ==
PROVIDERS: Emergency Provider Emergency Medicine; PCP Nurse Practitioner Family
DX: R07.89 Other chest pain (principal); E11.65 Type 2 diabetes mellitus with hyperglycemia; Z79.84 Long term (current) use of oral hypoglycemic drugs; I25.10 Atherosclerotic heart disease of native coronary artery without angina pectoris; E78.5 Hyperlipidemia, unspecified; I10 Essential (primary) hypertension
CPT/HCPCS: 36415; 36416; 71045; 80053; 82962; 83690; 84484; 85025; 85378; 93005; 96361; 96374; 96375; 99284; J1815; J2270; J2405; J7030

== ENCOUNTER 2020-08-10 09:13 | Day surgery (SDC) | payer MEDICARE, MEDICAID, SELFPAY ==
[2020-08-10] VITALS (56 sets, daily range): BP systolic 104–141; BP diastolic 67–99; PULSE 72–100; RESP 12–42; TEMP 36.7–37.1; O2SAT 91–100; BMI 30.4
--- NOTE | 2020-08-10 10:00 | XACV_ITS ---
Ht: 168 cm Wt: 86 kg BSA: 2.02 m2 Gender: Female : 1965 Any Known Allergies: Other Exam Priority: Routine Procedure(s): Procedure Description: Diagnostic procedure Procedure Description: Left Heart Catheterization Diagnostic Cath Status: Elective Diagnostic Findings * LM has 0% stenosis. * CX has 0% stenosis. * mLAD: Mild 40% stenosis, AMARILIS: 3 flow. * Mid Right Coronary Artery: Moderate 60% stenosis, AMARILIS: 3 flow. * Distal Right Coronary Artery: Moderate 60% stenosis, AMARILIS: 3 flow. * Coronary angiography shows right dominance. Conclusions 1. FFR: After equalizing the distal and proximal pressure of FFR wire proximal to the lesion, distal lesion was crossed with FFR wire. IV adenosine at rate of 140 mcg/min was started. Patient did not compliant of any symptoms, at then end of two minutes FFR was recorded as 0.89, which is not significant . 2. Patent previously placed mid 3. RCA stent.. 4. Indication for cath 5. : 6. Chest pain despite of optimization of medicine 7. suspicious for 8. worsening of angina.. 9. There is moderate coronary artery disease with two vessel disease. Recommendations * Continue current medical management and risk factor modification. Diagnostic RX Recommendation: medical therapy and/or counseling Clinical Evaluation EBL: 5mL-10mL Procedural Details Procedure Consent Obtained. Admit Source: Out Patient. Pre-Procedure Time Out. Identified patient by full name and date of as verbalized by the patient/guarantor. Does the consent match the physician's order: Yes. Accurate & Complete Informed Consent: Yes. Inpatient/Outpatient History & Physical on Chart: Yes. If H&P is completed, is and addenduem needed: N/A; If yes, is the addendum complete: N/A. Visualize and Verify Site with Patient/Guarantor: N/A. Relevant Radiology Images available: N/A. Pre-op teaching completed and patient verbalized understanding. The risks, benefits, and alternatives of sedation and/or procedure were discussed by physician. The patient agrees to continue. Procedure started. Correct patient, site and procedure confirmed by cath team. PERRLA. Strong, equal hand apartment leasing consultant bilaterally. Lungs clear x 5 lobes. IV Site on Arrival: 20 gauge in the left anticubital. Pre Procedural Pulses: bilateral dorsalis pedis was 3+. Pre Procedural Pulses: bilateral posterior tibial was 1+. Pre Procedural Pulses: bilateral radial was 2+. Oxygen started at 2liters/min via nasal canula. bilateral groins was prepped with chloroprep then draped in the usual sterile fashion. right radial was prepped with chloroprep then draped in the usual sterile fashion. Baseline sample Acquired. HR: 88 BPM. Physician notified. Physician arrived. Physician scrubbed in. Immediate Pre-Procedure Time Out. Correct Patient: Yes; Correct Procedure: Yes; Correct Site: Yes; Correct Patient Position: Yes; Correct Supplies: Yes; Dried Flammable Prep: Yes; Blood Products Available: N/A;. Lidocaine 1% infiltrated to the right radial. Arterial access obtained. A 5 moroccan TIG catheter in over wire. Multiple views taken of left coronary artery. Catheter redirected to the RCA. Multiple views taken of right coronary artery. 6 moroccan JR 4 guide catheter was inserted over the wire. pressure wire inserted. An FFR value of 0.89 was obtained for a lesion located at Dist RCA. Guide catheter out. Wire out. TR band placed. Hemostasis obtained. Post Procedure: Pulses reassessed and unchanged. PERRLA. Strong, equal hand apartment leasing consultant bilaterally. No VTE prophylaxis required. Medication's Wasted: Lidocaine 1% = 18 mL. Medication's Wasted: Heparin = 4000 units. Medication's Wasted: Nitro = 49.6 mg. Medication's Wasted: Other = adenosine 65 mg. Total IV fluids: 50 mL. Contrast type used: Visipaque 320 mgI/mL, 500 mL bottle. Contrast Material : Visipaque 99 ml. [facility] Clinical Fraility Score: 3: Managing Well. 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 Chest Pain Symptom Assessment: Typical Angina Symptoms. Cardiovascular Instability:no. Post-op diagnosis: patent stents, non obstructive CAD. Complications: none. Estimated blood loss: 5mL-10mL. A TR Band was successful obtaining hemostatsis at the Right Radial artery insertion site. Procedure completed. Patient transferred by wheelchair to ICU. Vital chart was stopped. Access Site Site: Right Radial artery Sheath Size: 6 Fr Hemostasis Method: TR Band Hemostasis Success: Successful Procedure Medications Start: 1:31 PM Stop: 1:31 PM Medication: Versed Amount: 1 mg Route: I.V. Start: 1:31 PM Stop: 1:31 PM Medication: Fentanyl Amount: 50 mcg Route: I.V. Start: 1:36 PM Stop: 1:36 PM Medication: Nitrogylcerin Amount: 200 mcg Route: I.A. Start: 1:36 PM Stop: 1:36 PM Medication: Versed Amount: 1 mg Route: I.V. Start: 1:36 PM Stop: 1:36 PM Medication: Fentanyl Amount: 50 mcg Route: I.V. Start: 1:37 PM Stop: 1:37 PM Medication: Heparin Amount: 5000 units Route: I.V. Start: 1:39 PM Stop: 1:39 PM Medication: Versed Amount: 1 mg Route: I.V. Start: 1:42 PM Stop: 1:42 PM Medication: Heparin Amount: 2000 units Route: I.V. Start: 1:43 PM Stop: 1:43 PM Medication: Versed Amount: 1 mg Route: I.V. Start: 1:51 PM Stop: 1:51 PM Medication: Adenosine (Adenocard) Amount: 722 Route: I.V. drip Start: 1:54 PM Stop: 1:54 PM Medication: Nitrogylcerin Amount: 200 mcg Route: I.C. I, the attending physician, have reviewed and verified all procedure medications. Yes, all medications given per verbal order History/Risk Factors Hypertension: Yes Dyslipidemia: Yes Prior Interventions PCI: Yes Report Signatures Finalized by Hayden Rodríguez MD on 08/19/2020 08:13 PM
--- NOTE | 2020-08-10 10:18 | P.HP_ITS ---
Same Day Surgery H&P Indication for Procedure/HPI DATE OF PROCEDURE: August 10, 2020 CHIEF COMPLAINT/INDICATIONFOR SURGICAL PROCEDURE: Continuous chest pain along with shortness of breath despite of optimization of medicine PREOP DIAGNOSIS: Chest pain with shortness of breath PLANNED PROCEDRUE: Operation Date: 08/10/20 10:00 Proposed Procedures p Cardiac Catheterization 81725 R07.9(Left) - Hayden Rodríguez MD Three 55-year-old female past medical history significant for hypertension hyperlipidemia diabetes mellitus worsening of chest pain along with shortness of breath despite optimization of medicine had stress test in May of this year which did not show ischemia. Patient medicines were further optimized despite of that she continues to complaining of chest pain pressure upon exertion and sometimes at rest. Since she continues to complain about chest pain and pressure it is hard to tell whether it is anxiety versus coronary artery disease therefore we decided to proceed with left heart cath. I have explained personally patient all risk benefit and alternative for the procedure. She understand the risk of urgent emergent surgery minor major bleed arrhythmia stroke and worse case scenario . Medications/Allergies* Home Medications Medication Instructions Recorded Confirmed Type albuterol sulfate 90 mcg/actuation 2 puff INHALATION QID 06/12/19 08/07/20 History aerosol inhaler hydrocodone 5 mg-acetaminophen 325 1 tab PO TID PRN 03/25/20 08/07/20 History mg tablet tizanidine 4 mg capsule 4 mg PO DAILY cap 06/12/20 08/07/20 History glipizide 5 mg tablet, extended 10 mg PO DAILY tab 07/08/20 08/07/20 History release 24 hr aripiprazole [Abilify] 15 mg PO BID 08/07/20 08/07/20 History aspirin 81 mg PO DAILY 08/07/20 08/07/20 History pantoprazole 40 mg PO DAILY 08/07/20 08/07/20 History Allergies/Adverse Reactions Allergy/AdvReac Type Severity Reaction Status Date / Time duloxetine [From Cymbalta] Allergy Unknown Unknown Verified 06/12/20 14:45 paroxetine [From Paxil] AdvReac Mild ADR-Shakine Verified 06/12/20 14:45 ss bupropion [From Wellbutrin] AdvReac ADR-Vomitin Verified 06/12/20 14:45 g metformin AdvReac ADR-Diarrhe Verified 06/12/20 14:45 a Pertinent History/Comorbid Conditions* Medical History (Updated 07/15/20 @ 00:01 by ) Alcohol use disorder, moderate, in early remission Asthma Bipolar 1 disorder, mixed, moderate History of overdose CAD (coronary artery disease) DDD (degenerative disc disease), lumbar Diabetes Dyslipidemia Dyspareunia GERD (gastroesophageal reflux disease) Hx of drug abuse Hypertension Nicotine dependence, cigarettes, uncomplicated Type 2 diabetes mellitus Surgical History (Updated 06/12/20 @ 15:06 by Vianey Colunga APN, RADHA) H/O heart artery stent (~2018) 2 stents placed History of appendectomy History of cholecystectomy (02/13/14) Laparoscopic. Performed by Dr. Wahl at [facility] History of tubal ligation (~1993) . Performed by Dr. Jesus at [facility]. Family History (Updated 08/09/19 @ 08:33 by Kirsten Wolf LPN) Diabetes Grandmother Heart disease Grandmother maternal Mother Hypercholesteremia Grandmother maternal Mother Breast cancer Family/Other aunt and cousin Hypertension Grandmother maternal Social History Marital status: Pertinent Exam Findings alert, oriented x 3 and clear to auscultation bilaterally Conscious Sedation Assessment PATIENT ASSESSED PRIOR TO SEDATION, WITH NO CHANGE NOTED: Yes AIRWAY EVAL/ANESTHESIA PLAN: normal airway, ASA II, Risks, benefits & alternatives of sedation and/or procedure discussed and Patient agrees to continue as planned Recommendations Surgery/Procedure today Other Plans: We will check labs and rapid Covid test before proceeding. Patient agrees to continuation of DAPT Coding Level of Care Code Acute Embroidery Specialist for Abida Wharton
[2020-08-10 10:43] LABS: Basophils % 0.2 %; Eosinophils # 0.1 10^3/uL (0.0-0.8); Eosinophils % 1.3 %; Hematocrit 43.8 % (37.0-47.0); Hemoglobin 14.5 g/dL (11.5-15.3); Lymphocytes % 35.5 %; Mean Corpuscular HGB Conc 33.1 g/dL (30.0-36.0); Mean Corpuscular Hemoglobin 29.1 pg (28.0-34.0); Mean Corpuscular Volume 87.8 fL (81-99); Monocytes # 0.5 10^3/uL (0.2-0.9); Neutrophils # 4.81 10^3/uL (1.8-7.7); Neutrophils % 56.8 %; Nucleated Red Blood Cells % 0 %; Platelet Count 399 10^3/cmm (130-400); Red Blood Count 4.99 10^6/uL (4.1-5.3); Red Cell Distribution Width 12.6 % (12.1-15.1); White Blood Count 8.5 10^3/uL (4.0-10.0)
[2020-08-10 11:02] LABS: Anion Gap 15.1 (5-19); Blood Urea Nitrogen 14 mg/dL (6-20); Calcium 9.5 mg/dL (8.5-10.5); Carbon Dioxide 24 mmol/L (22-29); Chloride 99 mmol/L (98-107); Glomerular Filtration Rate 74.5 mL/min (90-130); Glucose 171 mg/dL (65-115); Osmolality Calculated 283 mOsm/kg (285-295); Potassium 4.1 mmol/L (3.5-5.1); Sodium 134 mmol/L (136-145)
[2020-08-10 11:06] LABS: SARS Covid-2 Antigen Negative (Negative)
[2020-08-10] MEDS: diphenhydrAMINE 50 mg Capsule PO (11:47)
--- NOTE | 2020-08-10 16:22 | PC.NURSE ---
1438-2cc removed from TR band 1445-2cc removed from TR Band 1500-2cc Removed from TR band 1520-2cc removed from TR band 1535-2cc Removed from TR band 1550-2cc Removed from TR band 1610-2cc Removed from TR band 1620-2cc Removed fomr TR band Right wrist Dry with no signs of hematoma present. pt tolerated well. will monitor.
[2020-08-10] MEDS: isosorbide mononitrate ER 30 mg Tablet 15 MG PO (18:29)
[2020-08-10] MEDS: ARIPiprazole 10 mg Tablet 15 MG PO (18:29)
[2020-08-10] MEDS: gabapentin 100 mg Capsule PO (18:29)
--- NOTE | 2020-08-10 19:30 | PC.NURSE ---
Patient discharged and was transported to surgical services exit at 1920 via w/c. All patient belongings and discharge instructions included. IV removed cath tip intact.
== END 2020-08-10 19:20 | disposition home or self-care (01) ==
LOC: CCL 09:16 → ICU 18:33
PROVIDERS: PCP Nurse Practitioner Family; Visit Provider Internal Medicine Cardiovascular Disease
DX: I25.10 Atherosclerotic heart disease of native coronary artery without angina pectoris (principal); R07.9 Chest pain, unspecified; I10 Essential (primary) hypertension; E78.5 Hyperlipidemia, unspecified; E11.9 Type 2 diabetes mellitus without complications; Z79.82 Long term (current) use of aspirin; K21.9 Gastro-esophageal reflux disease without esophagitis; F17.210 Nicotine dependence, cigarettes, uncomplicated
CPT/HCPCS: 36415; 80048; 85025; 87426; 93454; 93571; C1769; C1887; C1894; J0153; J1644; J2250; J3010; J3490; J7030; Q0163; Q9967

== ENCOUNTER → 2020-08-19 15:51 | Outpatient (BNVA) | payer MEDICARE, MEDICAID, SELFPAY | PROVIDERS: PCP Nurse Practitioner Family; Visit Provider Nurse Practitioner Family | DX: I25.110 Atherosclerotic heart disease of native coronary artery with unstable angina pectoris (principal) | CPT/HCPCS: 80048 ==

== ENCOUNTER → 2020-10-19 07:54 | Outpatient (BNVA) | payer MEDICARE, MEDICAID, SELFPAY | PROVIDERS: PCP Nurse Practitioner Family; Visit Provider Nurse Practitioner Psychiatric/Mental Health | DX: F31.62 Bipolar disorder, current episode mixed, moderate (principal); F10.21 Alcohol dependence, in remission; Z79.899 Other long term (current) drug therapy; F17.210 Nicotine dependence, cigarettes, uncomplicated | CPT/HCPCS: 99214 ==

== ENCOUNTER → 2020-10-26 14:13 | Outpatient (BNVA) | payer MEDICARE, MEDICAID, SELFPAY | PROVIDERS: PCP Nurse Practitioner Family; Visit Provider Nurse Practitioner | DX: E11.9 Type 2 diabetes mellitus without complications (principal); E78.5 Hyperlipidemia, unspecified; E87.6 Hypokalemia; Z79.4 Long term (current) use of insulin; I10 Essential (primary) hypertension | CPT/HCPCS: 80053; 80061; 83036; 83721 ==

== ENCOUNTER → 2020-10-27 09:34 | Outpatient (BNVA) | payer MEDICARE, MEDICAID, SELFPAY | PROVIDERS: PCP Nurse Practitioner Family; Visit Provider Nurse Practitioner | DX: E11.9 Type 2 diabetes mellitus without complications (principal); E78.5 Hyperlipidemia, unspecified; E87.6 Hypokalemia; Z79.4 Long term (current) use of insulin; I10 Essential (primary) hypertension | CPT/HCPCS: 81003 ==

== ENCOUNTER → 2020-11-27 08:29 | Outpatient (BNVA) | payer MEDICARE, MEDICAID, SELFPAY | PROVIDERS: PCP Nurse Practitioner Family; Visit Provider Nurse Practitioner Psychiatric/Mental Health | DX: F31.62 Bipolar disorder, current episode mixed, moderate (principal); F10.21 Alcohol dependence, in remission; F17.210 Nicotine dependence, cigarettes, uncomplicated | CPT/HCPCS: 99214 ==

== ENCOUNTER → 2020-12-28 07:33 | Outpatient (BNVA) | payer MEDICARE, MEDICAID, SELFPAY | PROVIDERS: PCP Nurse Practitioner Family; Visit Provider Nurse Practitioner Psychiatric/Mental Health | DX: F31.62 Bipolar disorder, current episode mixed, moderate (principal); F10.21 Alcohol dependence, in remission; F17.210 Nicotine dependence, cigarettes, uncomplicated | CPT/HCPCS: 99214 ==

== ENCOUNTER → 2021-01-19 11:14 | Outpatient (BNVA) | payer MEDICARE, MEDICAID, SELFPAY | PROVIDERS: PCP Nurse Practitioner; Visit Provider Nurse Practitioner | DX: E11.65 Type 2 diabetes mellitus with hyperglycemia (principal); Z79.4 Long term (current) use of insulin; J45.909 Unspecified asthma, uncomplicated; E78.5 Hyperlipidemia, unspecified; K21.9 Gastro-esophageal reflux disease without esophagitis; R26.81 Unsteadiness on feet; I10 Essential (primary) hypertension | CPT/HCPCS: 81000 ==

== ENCOUNTER → 2021-01-27 13:38 | Outpatient (BNVA) | payer MEDICARE, MEDICAID, SELFPAY | PROVIDERS: PCP Nurse Practitioner; Visit Provider Nurse Practitioner | DX: E11.65 Type 2 diabetes mellitus with hyperglycemia (principal); Z79.4 Long term (current) use of insulin | CPT/HCPCS: 80053; 80061; 83036; 83721 ==

== ENCOUNTER → 2021-02-01 07:43 | Outpatient (BNVA) | payer MEDICARE, MEDICAID, SELFPAY | PROVIDERS: PCP Nurse Practitioner; Visit Provider Nurse Practitioner Psychiatric/Mental Health | DX: F31.62 Bipolar disorder, current episode mixed, moderate (principal); F10.21 Alcohol dependence, in remission; F17.210 Nicotine dependence, cigarettes, uncomplicated | CPT/HCPCS: 99214 ==

== ENCOUNTER → 2021-03-03 15:30 | Outpatient (BNVA) | payer MEDICARE, MEDICAID, SELFPAY | PROVIDERS: PCP Nurse Practitioner; Visit Provider Nurse Practitioner Women's Health | DX: Z01.419 Encounter for gynecological examination (general) (routine) without abnormal findings (principal) | CPT/HCPCS: 87624 ==

== ENCOUNTER 2021-03-19 12:34 | Outpatient (CLI) | payer MEDICARE, MEDICAID, SELFPAY ==
--- NOTE | 2021-03-19 12:55 | MM_ITS ---
WS: [id number] BILATERAL SCREENING DIGITAL MAMMOGRAM WITH CAD HISTORY: SCREENING COMPARISON: 02/13/2020, 01/04/2019 and 12/20/2017 Bilateral CC and MLO views submitted. Computer aided detection analyzed. Breast composition: There are scattered areas of fibroglandular density. No suspicious masses, microc alcifications or architectural distortion. Stable 5 mm nodule 2:00 LEFT breast. MM/[place] [id number] IMPRESSION: BI-RADS: 2-Benign FOLLOW UP: 1 Year Follow-up
== END 2021-03-19 12:35 | disposition home or self-care (01) ==
LOC: RADSHAW 12:37
PROVIDERS: PCP Nurse Practitioner; Visit Provider Nurse Practitioner
DX: Z12.31 Encounter for screening mammogram for malignant neoplasm of breast (principal)
CPT/HCPCS: 77067

== ENCOUNTER 2021-03-25 10:37 | Outpatient (CLI) | payer MEDICARE, MEDICAID, SELFPAY ==
--- NOTE | 2021-03-25 11:00 | CT_ITS ---
WS: [id number] LDCT LUNG CANCER SCREENING HISTORY: Lung Screening TECHNIQUE: Axial imaging performed from the apices to 1 cm below the costophrenic angles. Coronal and sagittal reformats are submitted with axial MIP series. All CT scans at [facility] use at least one of these dose optimization techniques: automated exposure control; mA and/or kV adjustment per patient size (includes targeted exams where dose is matched to clinical indication); or iterativ e reconstruction. DLP: 53.0 mGy.cm DIvol: 1.58 mGy COMPARISON: None available. Diagnostic quality: Satisfactory Lung Nodules: No pulmonary nodules or endobronchial lesions. Lungs: Mild hyperexpansion. Heart: Normal size heart. No pericardial effusion. Other findings: Very mild atherosclerosis aorta. Normal size pulmonary artery. Small hiatal hernia. M ild compression deformity T12 by 10%. CT/CT lung screening [id number] IMPRESSION: LUNG-RADS: 1-Negative FOLLOW UP: 12 Month: Continue annual screening with LDCT OTHER FINDINGS (S MODIFIER): None.
== END 2021-03-25 10:38 | disposition home or self-care (01) ==
LOC: CT 10:38
PROVIDERS: PCP Nurse Practitioner; Visit Provider Internal Medicine Pulmonary Disease
DX: Z12.2 Encounter for screening for malignant neoplasm of respiratory organs (principal); F17.210 Nicotine dependence, cigarettes, uncomplicated
CPT/HCPCS: 71271

== ENCOUNTER → 2021-03-29 08:16 | Outpatient (BNVA) | payer MEDICARE, MEDICAID, SELFPAY | PROVIDERS: PCP Nurse Practitioner; Visit Provider Nurse Practitioner Psychiatric/Mental Health | DX: F31.62 Bipolar disorder, current episode mixed, moderate (principal); F17.210 Nicotine dependence, cigarettes, uncomplicated | CPT/HCPCS: 99214 ==

== ENCOUNTER → 2021-03-30 10:58 | Outpatient (BNVA) | payer MEDICARE, MEDICAID, SELFPAY | PROVIDERS: PCP Nurse Practitioner; Visit Provider Internal Medicine Critical Care Medicine | DX: Z20.822 Contact with and (suspected) exposure to COVID-19 (principal); J45.909 Unspecified asthma, uncomplicated; R06.02 Shortness of breath | CPT/HCPCS: 87635 ==

== ENCOUNTER 2021-04-05 13:41 | Outpatient (CLI) | payer MEDICARE, MEDICAID, SELFPAY ==
--- NOTE | 2021-04-05 14:32 | PFTS_ITS ---
Date of Study:04/05/21 Date of Dictation: 04/06/2021 MECHANICS: Prebronchodilator forced vital capacity (FVC) is normal. Prebronchodilator forced expiratory volume in one second (FEV1) is normal. FEV1/FVC is normal. There is no postbronchodilator study. FLOW VOLUME LOOP: normal . LUNG VOLUMES: Total lung capacity (TLC) is normal. Residual volume (RV) is normal. DIFFUSING CAPACITY FOR CARBON MONOXIDE: normal. . INTERPRETATION: The pulmonary function tests are normal. MTDD
== END 2021-04-05 13:42 | disposition home or self-care (01) ==
LOC: RT 13:42
PROVIDERS: PCP Nurse Practitioner; Visit Provider Internal Medicine Pulmonary Disease
DX: R06.02 Shortness of breath (principal); J45.909 Unspecified asthma, uncomplicated
CPT/HCPCS: 94010; 94618; 94726; 94729

== ENCOUNTER → 2021-04-27 07:47 | Outpatient (BNVA) | payer MEDICARE, MEDICAID, SELFPAY | PROVIDERS: PCP Nurse Practitioner; Visit Provider Nurse Practitioner Psychiatric/Mental Health | DX: F31.62 Bipolar disorder, current episode mixed, moderate (principal); F17.210 Nicotine dependence, cigarettes, uncomplicated | CPT/HCPCS: 99214 ==

== ENCOUNTER → 2021-04-28 14:24 | Outpatient (BNVA) | payer MEDICARE, MEDICAID, SELFPAY | PROVIDERS: PCP Nurse Practitioner; Visit Provider Nurse Practitioner | DX: E11.65 Type 2 diabetes mellitus with hyperglycemia (principal); Z79.4 Long term (current) use of insulin; M51.36 Other intervertebral disc degeneration, lumbar region; J45.909 Unspecified asthma, uncomplicated; E55.9 Vitamin D deficiency, unspecified; Z23 Encounter for immunization | CPT/HCPCS: 81000 ==

== ENCOUNTER → 2021-05-04 14:13 | Outpatient (BNVA) | payer MEDICARE, MEDICAID, SELFPAY | PROVIDERS: PCP Nurse Practitioner; Visit Provider Nurse Practitioner | DX: E11.65 Type 2 diabetes mellitus with hyperglycemia (principal); Z79.4 Long term (current) use of insulin; E55.9 Vitamin D deficiency, unspecified | CPT/HCPCS: 80053; 80061; 82306; 83036; 83721; 84443; 85025 ==

== ENCOUNTER → 2021-06-08 07:41 | Outpatient (BNVA) | payer MEDICARE, MEDICAID, SELFPAY | PROVIDERS: PCP Nurse Practitioner; Visit Provider Nurse Practitioner Psychiatric/Mental Health | DX: F31.62 Bipolar disorder, current episode mixed, moderate (principal); F17.210 Nicotine dependence, cigarettes, uncomplicated | CPT/HCPCS: 99214 ==

== ENCOUNTER 2021-06-10 12:08 | Emergency (ER) | payer MEDICARE, MEDICAID, SELFPAY ==
--- NOTE | 2021-06-10 12:18 | ECG_ITS ---
[facility] Test Date: 2021-06-10 Pat Name: Jaida Thopre Department: Room: Gender: Female Assistant To The Ceo: : 1965 Requested By: Kenia Gilliam Order Number: [id number] Val MD: Viktoria Hitchcock M.D. Measurements Intervals [place] Rate: 79 P: 47 ME: 164 QRS: -29 QRSD: 80 T: 21 QT: 387 QTc: 445 Interpretive Statements SINUS RHYTHM LOW QRS VOLTAGE IN PRECORDIAL LEADS [QRS DEFLECTION < 1.0 mV IN CHEST LEADS] PATTERN CONSISTENT WITH PULMONARY DISEASE INFERIOR MYOCARDIAL INFARCTION , PROBABLY OLD [40+ ms Q WAVE AND/OR ST/T ABNORMALITY IN II/aVF] Compared to ECG 06/10/2021 13:02:27 Low QRS voltage now present Myocardial infarct finding still present Electronically Signed On 06-10-2021 21:57:05 ASSOCIATE PROFESSOR OF [employer]IC by Viktoria Hitchcock M.D. [id number]
--- NOTE | 2021-06-10 12:18 | XRR_ITS ---
PROCEDURE INFORMATION: Exam: XR Chest Exam date and time: 06/10/2021 12:18 PM Age: 55 years old Clinical indication: Other: Syncope; Prior surgery; Surgery type: 2 stents TECHNIQUE: Imaging protocol: XR of the chest. Views: 1 view. Total images: 1 COMPARISON: CR XR chest 1V portable [id number] 07/06/2020 9:44 PM FINDINGS: Lungs: Unremarkable. No consolidation. Pleural spaces: Unremarkable. No pleural effusion. No pneumothorax. Heart/Mediastinum: Unremarkable. No cardiomegaly. Bones/joints: Unremarkable. XR/XR chest 1V portable [id number] IMPRESSION: No acute findings.
[2021-06-10 12:38] VITALS: BP 86/58; PULSE 79; RESP 16; TEMP 36.6; O2SAT 95; BMI 29.0
--- NOTE | 2021-06-10 12:46 | CT_ITS ---
WS: [id number] CT HEAD NONCONTRAST HISTORY: fall on Plavix TECHNIQUE: Contiguous axial imaging performed through the brain in 2.5 mm imaging. Bone and soft tiss ue windows. Sagittal and coronal reformats reviewed. All CT scans at [facility] use at least one of these dose optimization techniques: automated exposure control; mA and/or kV adjustment per pa tient size (includes targeted exams where dose is matched to clinical indication); or iterative recon struction. DLP: 782.7 mGy.cm COMPARISON: 01/05/2018 No acute intracranial hemorrhage, midline shift or mass effect. No atrophy or prior infarcts or herniation. Ventricles: Normal size with no hydrocephalus. Paranasal sinuses: As visualized are clear. Mastoid air cells: Well pneumatized. Calvarium and scalp: Skull is intact with no soft tissue edema or swelling. CT/CT head wo con* [id number] IMPRESSION: Negative head CT.
--- NOTE | 2021-06-10 12:46 | W.ED.GENADLT ---
HPI - General Adult General: Chief complaint: Syncope Stated complaint: WEAK, SYNCOPE, DIZZY Time Seen by Provider: 06/10/21 12:18 Source: patient and EMS Mode of arrival: EMS History of Present Illness: This patient was transported by EMS to the emergency department. She has been ill over the past 2 days with generalized malaise body aches subjective fevers and some lower abdominal discomfort. She states she has some diarrhea yesterday. She states she has not had her normal intake of fluids or food. She has mild nausea today controlled by Zofran given by EMS. She apparently got out of bed this morning and was headed to another room and had a syncopal episode. She states that she did take her usual medications prior to her syncopal episode which includes metoprolol. She denies headache, head injury neck pain or other injury as a result of her fall. She has a history of coronary artery disease and had stents placed approximately 2 years ago and still takes clopidogrel. She states she is scheduled for an angiogram this next month because of some intermittent chest pain symptoms. She denies any chest pain associated with her event today. She has had a prior cholecystectomy as well as an appendectomy. She states she has been exposed to other individuals recently who have Covid 19 and she is unimmunized. She has a cigarette smoker. EMS noted she was hypotensive upon arrival with a systolic pressure in the 80s. They gave her fluids and noted an EKG was normal sinus rhythm without any ST-T changes. Associated symptoms: Reports decreased appetite, fevers/chills, malaise, nausea and syncope; Deny cough, headache(s), rash, palpitations or short of breath Review of Systems Const: Reports: chills, body aches and malaise Eyes: Denies: change in vision ENMT: Denies: throat pain, odynophagia or nasal discharge Card: Reports: syncope; Denies: palpitations or irregular heart rhythm Resp: Denies: productive cough, non-productive cough or wheezing GI: Reports: nausea and diarrhea; Denies: hematochezia or melena : Denies: flank pain, difficulty voiding or dysuria Musc: Denies: neck pain, back pain, extremity pain or extremity swelling Skin/Breast: Denies: rash Neuro: Denies: headache(s), numbness in extremities or weakness in extremities Psych: Denies: anxiety or depression Endo: Denies: polyuria or polydipsia PFSH ED PFSH: Medical History Asthma Bipolar 1 disorder, mixed, moderate History of overdose CAD (coronary artery disease) DDD (degenerative disc disease), lumbar Diabetes mellitus with hyperglycemia, with long-term current use of insulin Dyslipidemia Dyspareunia GERD (gastroesophageal reflux disease) Hx of drug abuse Hypertension Nicotine dependence, cigarettes, uncomplicated Psychiatric care Type 2 diabetes mellitus Surgical History H/O heart artery stent (~2018) 2 stents placed History of appendectomy History of cholecystectomy (02/13/14) Laparoscopic. Performed by Dr. Wahl at [facility] [place] [place] History of tubal ligation (~1993) . Performed by Dr. Jesus at [facility] [place]. Hx of wisdom tooth extraction Family History Family/Other Breast cancer aunt and cousin Grandmother Diabetes Hypertension maternal Heart disease maternal Hypercholesteremia maternal Mother Heart disease Hypercholesteremia Social History Second hand smoke exposure: No Smoking risk assessment/counseling performed?: Yes Alcohol intake: unknown Desire information about alcohol rehabilitation?: No Counseling given: No Desire information about substance/drug rehabilitation?: No Counseling given: No Adopted: No Caregiver/support person: No Lives independently: Yes Housing: House Marital status: Number of children: 3 service: No Pets and animals: Yes History of recent travel: No Physical Exam Narrative: EXAM NARRATIVE: Patient is alert makes good eye contact speech is goal-directed. Const: COMMON NORMALS: no acute distress and patient oriented x3 ORIENTATION/CONSCIOUSNESS: Yes awake HENMT: COMMON NORMALS: normocephalic, atraumatic and Normal external nose present HEAD & SCALP: normocephalic and atraumatic FACE & SINUS: normal facial exam; no sinus tenderness NOSE: Normal external nose present MOUTH: Normal oral and palatal mucosa present Eye: COMMON NORMALS: Equal, round and reactive pupils present and EOMs intact bilaterally PUPIL: Yes Equal, round and reactive pupils present Neck/C-Spine: COMMON NORMALS: full ROM (She has no midline tenderness. No step-off. She is able to range her neck), no lymphadenopathy, supple and no JVD Chest: COMMONS NORMALS: normal inspection of the chest and normal palpation of entire chest wall Resp: COMMON NORMALS: normal respiratory effort, No retractions, No use of accessory muscles and clear to auscultation bilaterally EFFORT & INSPECTION: Yes able to speak in complete sentences AUSCULTATION: clear to auscultation bilaterally Cardio: COMMON NORMALS: no JVD GI: COMMON NORMALS: Normal to inspection, nondistended, normoactive bowel sounds present, Soft to palpation, non-tender, No hepatosplenomegaly present, no masses and no bruits PALPATION: Yes Soft to palpation and Yes No hepatosplenomegaly present : COMMON NORMALS: Yes no CVA tenderness BLADDER/KIDNEY EXAM: Yes no CVA tenderness Back/Pelvis: COMMON NORMALS: no CVA tenderness, thoracic and lumbar spine normal to inspection, no thoracic nor lumbar tenderness and thoraco-lumbar ROM normal Extremity: COMMON NORMALS: normal to inspection, full ROM, capillary refill normal, no joint enlargement, no clubbing, cyanosis or edema, no calf tenderness and no pedal edema Neuro: COMMON NORMALS: patient oriented x3, moves all extremities, no focal motor deficits and no sensory deficits noted SPEECH: speech normal Course Reevaluation(s): Reevaluation #1: Patient remains improved. Blood sugars following with hydration and subjectively patient is improved without any evidence of arrhythmia, anemia or other concerning findings. Her troponins have been reassuring and that there is no continued rise in her troponins therefore mitigating against ACS or other worrisome condition at this time. COVID-19 is negative as well. We will go ahead and place her on Macrodantin for 3 days because of her abnormal urinalysis however I do not feel that she has sepsis or any other serious infection at this time. Return precautions were reviewed and discussed with patient. She acknowledged her discussion. She was appreciative of care. Vital Signs: Vital signs: Vital Signs Temperature 97.9 F 06/10/21 12:38 Pulse Rate 79 06/10/21 18:44 Respiratory Rate 16 06/10/21 18:44 Blood Pressure 106/71 06/10/21 18:44 Pulse Oximetry 100 06/10/21 18:44 MDM - General Adult Medical Decision Making Again COVID-19 is negative. Patient's blood sugar responded to hydration. No evidence of ACS at this time. No arrhythmias displayed while in the emergency department and she ambulated in took oral fluids well. No evidence of a surgical abdomen clinically or other worrisome condition at this time. I think she had syncope due to orthostatic changes and certainly not due to any other serious etiology. Placed on Macrodantin for 3 days for a lower urinary tract infection. Stable for outpatient management. Medical Records I reviewed the patient's medical records. Lab Data I reviewed the patient's lab results. : 06/10/21 13:02 06/10/21 13:02 Radiology Impressions Chest X-Ray 06/10/21 12:18 IMPRESSION: No acute findings. Head CT 06/10/21 12:46 IMPRESSION: Negative head CT. Laboratory Results WBC 13.1 10^3/uL (4.0-10.0) H 06/10/21 13:02 RBC 4.81 10^6/uL (4.1-5.3) 06/10/21 13:02 Hgb 14.1 g/dL (11.5-15.3) 06/10/21 13:02 Hct 42.6 % (37.0-47.0) 06/10/21 13:02 MCV 88.6 fl (81-99) 06/10/21 13:02 MCH 29.3 pg (28.0-34.0) 06/10/21 13:02 MCHC 33.1 g/dL (30.0-36.0) 06/10/21 13:02 RDW 13.1 % (12.1-15.1) 06/10/21 13:02 Plt Count 314 10^3/cmm (130-400) 06/10/21 13:02 MPV 10.7 fL (7.4-10.4) H 06/10/21 13:02 Neut % (Auto) 75.1 % 06/10/21 13:02 Lymph % (Auto) 18.0 % 06/10/21 13:02 [place] % (Auto) 4.7 % 06/10/21 13:02 Eos % (Auto) 1.0 % 06/10/21 13:02 Baso % (Auto) 0.5 % 06/10/21 13:02 Neut # (Auto) 9.86 10^3/uL (1.8-7.7) H 06/10/21 13:02 Lymph # (Auto) 2.4 10^3/uL (0.8-4.8) 06/10/21 13:02 [place] # (Auto) 0.6 10^3/uL (0.2-0.9) 06/10/21 13:02 Eos # (Auto) 0.1 10^3/uL (0.0-0.8) 06/10/21 13:02 Baso # (Auto) 0.1 10^3/uL (0.0-0.1) 06/10/21 13:02 Nucleated RBC % (auto) 0 % 06/10/21 13:02 Nucleated RBCs # 0.0 /100WBC 06/10/21 13:02 Sodium 130 mmol/L (136-145) L 06/10/21 13:02 Potassium 5.1 mmol/L (3.5-5.1) 06/10/21 13:02 Chloride 96 mmol/L (98-107) L 06/10/21 13:02 Carbon Dioxide 20 mmol/L (22-29) L 06/10/21 13:02 Anion Gap 19.1 (5-19) H 06/10/21 13:02 BUN 18 mg/dL (6-20) 06/10/21 13:02 Creatinine 1.1 mg/dL (0.5-0.9) H 06/10/21 13:02 GFR Calculation 51.6 mL/min (90-130) L 06/10/21 13:02 Glucose 508 mg/dL (65-115) H* 06/10/21 13:02 POC Glucose 353 mg/dL (70-110) H 06/10/21 16:12 Calculated Osmolality 295 mOsm/kg (285-295) 06/10/21 13:02 Calcium 8.5 mg/dL (8.5-10.5) 06/10/21 13:02 Total Bilirubin 0.3 mg/dL (0.15-1.2) 06/10/21 13:02 AST 17 U/L (0-32) 06/10/21 13:02 ALT 17 U/L (0-33) 06/10/21 13:02 Alkaline Phosphatase 132 IU/L (35-105) H 06/10/21 13:02 Troponin T Baseline 18 ng/L (0-10) H 06/10/21 13:02 Troponin T 120 Minute 15.99 ng/L (0-10) H 06/10/21 15:03 Delta Troponin T -2.01 ABS# (0-10) L 06/10/21 15:03 Total Protein 6.4 g/dL (6.6-8.7) L 06/10/21 13:02 Albumin 3.7 g/dL (3.5-5.2) 06/10/21 13:02 Globulin 2.7 g/dL (1.3-4.6) 06/10/21 13:02 Urine Color Yellow (Yellow) 06/10/21 17:51 Urine Appearance Clear (CLEAR) 06/10/21 17:51 Urine pH 5 (5-7) 06/10/21 17:51 Ur Specific [place] 1.020 (1.005-1.030) 06/10/21 17:51 Urine Protein 1+ (Negative) H 06/10/21 17:51 Urine Glucose (UA) 4+ (Normal) H 06/10/21 17:51 Urine Ketones Negative (Negative) 06/10/21 17:51 Urine Blood Neg (Negative) 06/10/21 17:51 Urine Nitrate Negative (Negative) 06/10/21 17:51 Urine Bilirubin Neg (Negative) 06/10/21 17:51 Urine Urobilinogen Neg mg/dL (Negative) 06/10/21 17:51 Ur Leukocyte Esterase 1+ (Negative) H 06/10/21 17:51 Urine RBC Rare /hpf (0-2) 06/10/21 17:51 Urine WBC 0-4 /hpf (0-5) H 06/10/21 17:51 Ur Squamous Epith Cells 0-4 /hpf (0-5) H 06/10/21 17:51 Amorphous Sediment Not Reportable 06/10/21 17:51 Urine Bacteria Trace /hpf (NONE) 06/10/21 17:51 SARS-CoV-2 Ag (Rapid) Negative (Negative) 06/10/21 13:27 Imaging Data CXR: Radiologist's impression: No acute disease EKG Data EKG 1: Interpretation: Resting EKG reveals a ventricular rate of 78 bpm. She has a normal intervals normal axis. She does have some nonspecific ST-T wave changes anteriorly. Computer interpretation considers a possible inferior SC however I do not see any acute changes in the typical inferior leads at this time. Computer generated interpretation: Chest X-Ray 06/10/21 12:18 IMPRESSION: No acute findings. Head CT 06/10/21 12:46 IMPRESSION: Negative head CT. Discharge Plan Discharge Clinical Impression: Diabetes mellitus with hyperglycemia, with long-term current use of insulin, Syncope due to orthostatic hypotension, Acute lower UTI Prescriptions: New nitrofurantoin monohyd/m-cryst [Macrobid] 100 mg capsule 100 mg PO BID 5 Days Qty: 10 0RF Rx Instructions: must administer with a meal/food No Action Spiriva Respimat 2.5 mcg/actuation mist 2 puff inhalation DAILY Qty: 4 3RF quetiapine [Seroquel] 200 mg tablet 200 mg PO DIRECTED Qty: 30 3RF Rx Instructions: Take one tablet one hour prior to bedtime hydroxyzine HCl 50 mg tablet 50 mg PO BID PRN (Reason: anxiety) Qty: 60 4RF Rx Instructions: Take one tablet twice per day as needed for anxiety quetiapine [Seroquel] 50 mg tablet 50 mg PO BID PRN (Reason: anxiety/agitation) Qty: 60 3RF Rx Instructions: May take half to one tablet twice per day as needed for anxiety/agitation omeprazole 20 mg capsule,delayed release(DR/EC) 20 mg PO DAILY 0RF (DME) pen needle, diabetic 33 gauge x 5/32 needle See Rx Instructions .ROUTE .MEDSUPPLY Qty: 100 1RF Rx Instructions: 1 time day (DME) DME: Walker Unit See Rx Instructions .ROUTE .MEDSUPPLY Qty: 1 0RF Rx Instructions: Code E0143 and E0156 walker 4 wheels and seat Farxiga 5 mg tablet 5 mg PO QAM Qty: 30 2RF Calcium 600 + D(3) 600 mg calcium- 200 unit capsule 1 cap PO DAILY Qty: 30 2RF (DME) True Metrix Glucose Test Strip Strip See Rx Instructions .Route Qty: 100 2RF Rx Instructions: use 3 times day albuterol sulfate [Ventolin HFA] 90 mcg/actuation HFA aerosol inhaler 2 puff INHALATION QID Qty: 8.5 2RF Levemir FlexTouch U-100 Insuln 100 unit/mL (3 mL) insulin pen See Rx Instructions SUBCUT DAILY Qty: 15 2RF Rx Instructions: up 70 units SUBCUT daily; Ozempic 1 mg/dose (2 mg/1.5 mL) pen injector 1 mg SUBCUT .weekly Qty: 3 2RF clopidogrel [Plavix] 75 mg tablet 75 mg PO DAILY Qty: 90 3RF fenofibrate nanocrystallized [Tricor] 145 mg tablet 145 mg PO DAILY Qty: 90 3RF Rx Instructions: No Crestor nitroglycerin 0.3 mg tablet, sublingual 0.3 mg SUBLINGUAL Q5M PRN (Reason: chest pain) Qty: 25 3RF Rx Instructions: until response; do not exceed 3 doses per episode isosorbide mononitrate 30 mg tablet extended release 24 hr 60 mg PO DAILY Qty: 180 1RF metoprolol tartrate 25 mg tablet 50 mg PO BID Qty: 180 1RF aspirin 81 mg Capsule 81 mg PO DAILY Qty: 0 0RF Discharge Orders: Discharge ED (Routine); Ordered 06/10/21 Ordered By: Souleymane Trinidad Referrals: Humaira Perdue, [facility] [Primary Care Provider] - Discharge Diet: Usual diet and Diabetic Discharge Activity: Resume usual activity Activity Restrictions/Additional Instructions: Take the medications we have prescribed for the next 5 days to treat your lower urinary tract infection. Continue all your other usual medications and monitor your blood sugars carefully at least twice daily. Make sure you are drinking at least 6 to 8 glasses of water a day in addition to your other usual fluids. If your symptoms not continue to improve or you develop other worsening symptoms at any time return to this or the nearest emergency department. Coding Level of Care Code ED Supervisor Shop for Abida Wharton Exam Comprehensive
[2021-06-10 13:17] LABS: Basophils # 0.1 10^3/uL (0.0-0.1); Basophils % 0.5 %; Eosinophils # 0.1 10^3/uL (0.0-0.8); Hematocrit 42.6 % (37.0-47.0); Hemoglobin 14.1 g/dL (11.5-15.3); Lymphocytes # 2.4 10^3/uL (0.8-4.8); Mean Corpuscular HGB Conc 33.1 g/dL (30.0-36.0); Mean Corpuscular Hemoglobin 29.3 pg (28.0-34.0); Mean Corpuscular Volume 88.6 fl (81-99); Mean Platelet Volume 10.7 fL (7.4-10.4); Monocytes # 0.6 10^3/uL (0.2-0.9); Monocytes % 4.7 %; Neutrophils # 9.86 10^3/uL (1.8-7.7); Neutrophils % 75.1 %; Nucleated Red Blood Cells % 0 %; Platelet Count 314 10^3/cmm (130-400); Red Blood Count 4.81 10^6/uL (4.1-5.3); Red Cell Distribution Width 13.1 % (12.1-15.1); White Blood Count 13.1 10^3/uL (4.0-10.0)
[2021-06-10 13:39] LABS: Troponin(5th) Baseline 18 ng/L (0-10)
[2021-06-10 13:41] LABS: Alanine Aminotransferase 17 U/L (0-33); Albumin Level 3.7 g/dL (3.5-5.2); Alkaline Phosphatase 132 IU/L (35-105); Anion Gap 19.1 (5-19); Aspartate Amino Transferase 17 U/L (0-32); Blood Urea Nitrogen 18 mg/dL (6-20); Calcium 8.5 mg/dL (8.5-10.5); Carbon Dioxide 20 mmol/L (22-29); Chloride 96 mmol/L (98-107); Globulin 2.7 g/dL (1.3-4.6); Glomerular Filtration Rate 51.6 mL/min (90-130); Osmolality Calculated 295 mOsm/kg (285-295); Potassium 5.1 mmol/L (3.5-5.1); Sodium 130 mmol/L (136-145); Total Bilirubin 0.3 mg/dL (0.15-1.2); Total Protein 6.4 g/dL (6.6-8.7)
[2021-06-10 13:44] LABS: Glucose 508 mg/dL (65-115)
[2021-06-10 14:17] LABS: SARS Covid-2 Antigen Negative (Negative)
--- NOTE | 2021-06-10 14:18 | ECG_ITS ---
[facility] Test Date: 2021-06-10 Pat Name: Jaida Thorpe Department: Room: Gender: Female Foam Dispenser: : 1965 Requested By: Kenia Gilliam Order Number: [id number] Val MD: Viktoria Hitchcock M.D. 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 [id number]
[2021-06-10] MEDS: sodium chloride 0.9% 1,000 ML 999 ML IV (14:52)
[2021-06-10 14:55] VITALS: BP 107/62; PULSE 83; RESP 15; O2SAT 95
[2021-06-10 15:33] LABS: Troponin 5 2HR 15.99 ng/L (0-10)
[2021-06-10 15:35] LABS: Troponin 5 2HR Delta -2.01 ABS# (0-10)
[2021-06-10 16:15] LABS: Glucose Point of Care 353 mg/dL (70-110)
[2021-06-10 18:41] LABS: Bilirubin Urine Neg (Negative); Blood Urine Neg (Negative); Glucose Urine UA 4+ (Normal); Ketones Urine Negative (Negative); Leukocyte Esterase Urine 1+ (Negative); Nitrate Urine Negative (Negative); Protein Urine 1+ (Negative); Urine Appearance Clear (CLEAR); Urine Color Yellow (Yellow); Urobilinogen Urine Neg (Negative); pH Urine 5 (5-7)
[2021-06-10 18:42] LABS: Add Urine Microscopic? YES; Bacteria Urine TRACE /hpf; RBC Urine RARE /hpf (0-2); Squamous Epithelial Cell Urine 0-4 /hpf (0-5); WBC Urine 0-4 /hpf (0-5)
[2021-06-10 18:43] LABS: Add Urine Culture? No
[2021-06-10 18:44] VITALS: BP 106/71; PULSE 79; RESP 16; O2SAT 100
--- NOTE | 2021-06-10 19:30 | ED_ITS ---
HPI - Syncope General: Chief Complaint: Syncope Stated Complaint: WEAK, SYNCOPE, DIZZY Time Seen by Provider: 06/10/21 12:18 Source: patient and EMS Mode of arrival: EMS PFSH ED PFSH: Medical History Asthma Bipolar 1 disorder, mixed, moderate History of overdose CAD (coronary artery disease) DDD (degenerative disc disease), lumbar Diabetes mellitus with hyperglycemia, with long-term current use of insulin Dyslipidemia Dyspareunia GERD (gastroesophageal reflux disease) Hx of drug abuse Hypertension Nicotine dependence, cigarettes, uncomplicated Psychiatric care Type 2 diabetes mellitus Surgical History H/O heart artery stent (~2018) 2 stents placed History of appendectomy History of cholecystectomy (02/13/14) Laparoscopic. [place] [facility] [place] of tubal ligation (~[place]) . [place] Jesus [place] [facility] [place] Hx of wisdom tooth extraction Family History Family/Other Breast cancer aunt and cousin Grandmother Diabetes Hypertension maternal Heart disease maternal Hypercholesteremia maternal Mother Heart disease Hypercholesteremia Social History Second hand smoke exposure: No Smoking risk assessment/counseling performed?: Yes Alcohol intake: unknown Desire information about alcohol rehabilitation?: No Counseling given: No Desire information about substance/drug rehabilitation?: No Counseling given: No Adopted: No Caregiver/support person: No Lives independently: Yes Housing: House Marital status: Number of children: 3 service: No Pets and animals: Yes History of recent travel: No Course Vital Signs: Vital signs: Vital Signs Temperature 97.9 F 06/10/21 12:38 Pulse Rate 79 06/10/21 18:44 Respiratory Rate 16 06/10/21 18:44 Blood Pressure 106/71 06/10/21 18:44 Pulse Oximetry 100 06/10/21 18:44 MDM - Syncope Lab Data : 06/10/21 13:02 06/10/21 13:02 Radiology Impressions Chest X-Ray 06/10/21 12:18 IMPRESSION: No acute findings. Head CT 06/10/21 12:46 IMPRESSION: Negative head CT. Laboratory Results WBC 13.1 10^3/uL (4.0-10.0) H 06/10/21 13:02 RBC 4.81 10^6/uL (4.1-5.3) 06/10/21 13:02 Hgb 14.1 g/dL (11.5-15.3) 06/10/21 13:02 Hct 42.6 % (37.0-47.0) 06/10/21 13:02 MCV 88.6 fl (81-99) 06/10/21 13:02 MCH 29.3 pg (28.0-34.0) 06/10/21 13:02 MCHC 33.1 g/dL (30.0-36.0) 06/10/21 13:02 RDW 13.1 % (12.1-15.1) 06/10/21 13:02 Plt Count 314 10^3/cmm (130-400) 06/10/21 13:02 MPV 10.7 fL (7.4-10.4) H 06/10/21 13:02 Neut % (Auto) 75.1 % 06/10/21 13:02 Lymph % (Auto) 18.0 % 06/10/21 13:02 Buchanan % (Auto) 4.7 % 06/10/21 13:02 Eos % (Auto) 1.0 % 06/10/21 13:02 Baso % (Auto) 0.5 % 06/10/21 13:02 Neut # (Auto) 9.86 10^3/uL (1.8-7.7) H 06/10/21 13:02 Lymph # (Auto) 2.4 10^3/uL (0.8-4.8) 06/10/21 13:02 Buchanan # (Auto) 0.6 10^3/uL (0.2-0.9) 06/10/21 13:02 Eos # (Auto) 0.1 10^3/uL (0.0-0.8) 06/10/21 13:02 Baso # (Auto) 0.1 10^3/uL (0.0-0.1) 06/10/21 13:02 Nucleated RBC % (auto) 0 % 06/10/21 13:02 Nucleated RBCs # 0.0 /100WBC 06/10/21 13:02 Sodium 130 mmol/L (136-145) L 06/10/21 13:02 Potassium 5.1 mmol/L (3.5-5.1) 06/10/21 13:02 Chloride 96 mmol/L (98-107) L 06/10/21 13:02 Carbon Dioxide 20 mmol/L (22-29) L 06/10/21 13:02 Anion Gap 19.1 (5-19) H 06/10/21 13:02 BUN 18 mg/dL (6-20) 06/10/21 13:02 Creatinine 1.1 mg/dL (0.5-0.9) H 06/10/21 13:02 GFR Calculation 51.6 mL/min (90-130) L 06/10/21 13:02 Glucose 508 mg/dL (65-115) H* 06/10/21 13:02 POC Glucose 353 mg/dL (70-110) H 06/10/21 16:12 Calculated Osmolality 295 mOsm/kg (285-295) 06/10/21 13:02 Calcium 8.5 mg/dL (8.5-10.5) 06/10/21 13:02 Total Bilirubin 0.3 mg/dL (0.15-1.2) 06/10/21 13:02 AST 17 U/L (0-32) 06/10/21 13:02 ALT 17 U/L (0-33) 06/10/21 13:02 Alkaline Phosphatase 132 IU/L (35-105) H 06/10/21 13:02 Troponin T Baseline 18 ng/L (0-10) H 06/10/21 13:02 Troponin T 120 Minute 15.99 ng/L (0-10) H 06/10/21 15:03 Delta Troponin T -2.01 ABS# (0-10) L 06/10/21 15:03 Total Protein 6.4 g/dL (6.6-8.7) L 06/10/21 13:02 Albumin 3.7 g/dL (3.5-5.2) 06/10/21 13:02 Globulin 2.7 g/dL (1.3-4.6) 06/10/21 13:02 Urine Color Yellow (Yellow) 06/10/21 17:51 Urine Appearance Clear (CLEAR) 06/10/21 17:51 Urine pH 5 (5-7) 06/10/21 17:51 Ur Specific Cooks 1.020 (1.005-1.030) 06/10/21 17:51 Urine Protein 1+ (Negative) H 06/10/21 17:51 Urine Glucose (UA) 4+ (Normal) H 06/10/21 17:51 Urine Ketones Negative (Negative) 06/10/21 17:51 Urine Blood Neg (Negative) 06/10/21 17:51 Urine Nitrate Negative (Negative) 06/10/21 17:51 Urine Bilirubin Neg (Negative) 06/10/21 17:51 Urine Urobilinogen Neg mg/dL (Negative) 06/10/21 17:51 Ur Leukocyte Esterase 1+ (Negative) H 06/10/21 17:51 Urine RBC Rare /hpf (0-2) 06/10/21 17:51 Urine WBC 0-4 /hpf (0-5) H 06/10/21 17:51 Ur Squamous Epith Cells 0-4 /hpf (0-5) H 06/10/21 17:51 Amorphous Sediment Not Reportable 06/10/21 17:51 Urine Bacteria Trace /hpf (NONE) 06/10/21 17:51 SARS-CoV-2 Ag (Rapid) Negative (Negative) 06/10/21 13:27 EKG Data EKG 2: I personally reviewed and interpreted this EKG as follows: Interpretation: Second EKG revealed a ventricular rate of [address]-T wave changes noted. Some baseline irritability is noted. EKG 1: I personally reviewed and interpreted this EKG as follows: Interpretation: First EKG shows's ventricular rate is 78 bpm in sinus rhythm. Normal intervals normal axis. No acute ST-T wave changes noted at this time. Discharge Plan Discharge Clinical Impression: Diabetes mellitus with hyperglycemia, with long-term current use of insulin, Syncope due to orthostatic hypotension, Acute lower UTI Prescriptions: New nitrofurantoin monohyd/m-cryst [Macrobid] 100 mg capsule 100 mg PO BID 5 Days Qty: 10 0RF Rx Instructions: must administer with a meal/food No Action Spiriva Respimat 2.5 mcg/actuation mist 2 puff inhalation DAILY Qty: 4 3RF quetiapine [Seroquel] 200 mg tablet 200 mg PO DIRECTED Qty: 30 3RF Rx Instructions: Take one tablet one hour prior to bedtime hydroxyzine HCl 50 mg tablet 50 mg PO BID PRN (Reason: anxiety) Qty: 60 4RF Rx Instructions: Take one tablet twice per day as needed for anxiety quetiapine [Seroquel] 50 mg tablet 50 mg PO BID PRN (Reason: anxiety/agitation) Qty: 60 3RF Rx Instructions: May take half to one tablet twice per day as needed for anxiety/agitation omeprazole 20 mg capsule,delayed release(DR/EC) 20 mg PO DAILY 0RF (DME) pen needle, diabetic 33 gauge x 5/32 needle See Rx Instructions .ROUTE .MEDSUPPLY Qty: 100 1RF Rx Instructions: 1 time day (DME) DME: Walker Unit See Rx Instructions .ROUTE .MEDSUPPLY Qty: 1 0RF Rx Instructions: Code E0143 and E0156 walker 4 wheels and seat Farxiga 5 mg tablet 5 mg PO QAM Qty: 30 2RF Calcium 600 + D(3) 600 mg calcium- 200 unit capsule 1 cap PO DAILY Qty: 30 2RF (DME) True Metrix Glucose Test Strip Strip See Rx Instructions .Route Qty: 100 2RF Rx Instructions: use 3 times day albuterol sulfate [Ventolin HFA] 90 mcg/actuation HFA aerosol inhaler 2 puff INHALATION QID Qty: 8.5 2RF Levemir FlexTouch U-100 Insuln 100 unit/mL (3 mL) insulin pen See Rx Instructions SUBCUT DAILY Qty: 15 2RF Rx Instructions: up 70 units SUBCUT daily; Ozempic 1 mg/dose (2 mg/1.5 mL) pen injector 1 mg SUBCUT .weekly Qty: 3 2RF clopidogrel [Plavix] 75 mg tablet 75 mg PO DAILY Qty: 90 3RF fenofibrate nanocrystallized [Tricor] 145 mg tablet 145 mg PO DAILY Qty: 90 3RF Rx Instructions: No Crestor nitroglycerin 0.3 mg tablet, sublingual 0.3 mg SUBLINGUAL Q5M PRN (Reason: chest pain) Qty: 25 3RF Rx Instructions: until response; do not exceed 3 doses per episode isosorbide mononitrate 30 mg tablet extended release 24 hr 60 mg PO DAILY Qty: 180 1RF metoprolol tartrate 25 mg tablet 50 mg PO BID Qty: 180 1RF aspirin 81 mg Capsule 81 mg PO DAILY Qty: 0 0RF Discharge Orders: Discharge ED (Routine); Ordered 06/10/21 Ordered By: Souleymane Trinidad Referrals: Humaira Perdue, JENNC [Primary Care Provider] - Discharge Diet: Usual diet and Diabetic Discharge Activity: Resume usual activity Activity Restrictions/Additional Instructions: Take the medications we have prescribed for the next 5 days to treat your lower urinary tract infection. Continue all your other usual medications and monitor your blood sugars carefully at least twice daily. Make sure you are drinking at least 6 to 8 glasses of water a day in addition to your other usual fluids. If your symptoms not continue to improve or you develop other worsening symptoms at any time return to this or the nearest emergency department. Coding Level of Care Code ED Electroless Plater for Abida Wharton
== END 2021-06-10 21:31 | disposition home or self-care (01) ==
PROVIDERS: Physician Assistant; Emergency Provider Emergency Medicine; PCP Nurse Practitioner
DX: I95.1 Orthostatic hypotension (principal); N39.0 Urinary tract infection, site not specified; E11.65 Type 2 diabetes mellitus with hyperglycemia; Z79.4 Long term (current) use of insulin; Z79.02 Long term (current) use of antithrombotics/antiplatelets; Z79.82 Long term (current) use of aspirin; I25.10 Atherosclerotic heart disease of native coronary artery without angina pectoris; E78.5 Hyperlipidemia, unspecified; I10 Essential (primary) hypertension
CPT/HCPCS: 36415; 36416; 70450; 71045; 80053; 81001; 82962; 84484; 85025; 87426; 93005; 96360; 99284; J7030

== ENCOUNTER 2021-06-22 08:40 | Outpatient (CLI) | payer MEDICARE, MEDICAID, SELFPAY ==
[2021-06-22] VITALS (23 sets, daily range): BP systolic 98–121; BP diastolic 66–91; PULSE 76–93; RESP 13–26; TEMP 36.6; O2SAT 98–100; BMI 27.9
--- NOTE | 2021-06-22 10:00 | XACV_ITS ---
Ht: 168 cm Wt: 78 kg BSA: 1.93 m2 Gender: Female : 1965 Any Known Allergies: Other Exam Priority: Routine Indication(s): - Chest pain Procedure(s): Procedure Description: Diagnostic procedure Procedure Description: PCI procedure Procedure Description: Drug Eluting Coronary Stent Procedure Description: Miscellaneous Procedure Description: ACT Procedure Description: Coronary Angiography Diagnostic Cath Status: Elective Diagnostic Findings * Left Main has no disease. * Right Coronary Artery has no disease. * Mid Left Anterior Descending: minimal 30% stenosis, AMARILIS: 3 flow. * Proximal Circumflex to Mid Circumflex: obstructive 70% stenosis, AMARILIS: 3 flow. * Coronary angiography shows right dominance. PCI Status: Elective Interventional Findings * Procedure detail: We engaged left main artery with EBU 3.5 guide catheter. Mid left circumflex stenosis was predilated with 2.5 x 12 mm semicompliant balloon. This was followed by placement of 2.75 x 18 mm resolute [place] drug-eluting stent. At this time final angiogram was performed that showed excellent stent expansion, no residual stenosis and AMARILIS-3 flow. Guidewire and guide catheter were removed. Patient left the Station Master in a stable condition.. * Proximal Circumflex to Mid Circumflex: 70% stenosis treated with a Drug Eluting Stent. 0% residual stenosis, AMARILIS: 3 flow. Conclusions 1. Severe 2. mid left circumflex artery stenosis s/p 3. successful revascularization with drug-eluting stent x1. Recommendations * Aspirin and Plavix for atleast 1 year. * High intensity statin therapy. * Aggressive risk factor modification. * Outpatient cardiology follow up in 4 weeks. Interventional RX Recommendation: PCI w/o planned CABG Diagnostic RX Recommendation: PCI w/o planned CABG Anticoagulation: Heparin Pressures Phase:Rest AO : 70 / 23 ( 42 ) @ 8:53:00 AM 68 / 22 ( 40 ) @ 8:56:00 AM 64 / 25 ( 42 ) @ 8:59:00 AM 112 / 71 ( 89 ) @ 9:02:00 AM 99 / 66 ( 81 ) @ 9:11:00 AM Clinical Evaluation EBL: 5mL-10mL Procedural Details Procedure Consent Obtained. Admit Source: Out Patient. Current Diagnosis : Chest Pain. Pre-Procedure Time Out. Identified patient by full name and date of as verbalized by the patient/guarantor. Does the consent match the physician's order: Yes. Accurate & Complete Informed Consent: Yes. Inpatient/Outpatient History & Physical on Chart: Yes. If H&P is completed, is and addenduem needed: No; If yes, is the addendum complete: N/A. Visualize and Verify Site with Patient/Guarantor: N/A. Relevant Radiology Images available: N/A. The risks, benefits, and alternatives of sedation and/or procedure were discussed by physician. The patient agrees to continue. Procedure started. [facility] Clinical Fraility Score: 3: Managing Well. Station Master Indications: Worsening Angina. Chest Pain Symptom Assessment: Atypical Angina. Cardiovascular Instability: No, stable. Correct patient, site and procedure confirmed by cath team. Current diagnosis: Chest Pain. PERRLA. Strong, equal hand pharmacy picking technician bilaterally. Lungs clear x 5 lobes. IV Site on Arrival: 18 gauge in the left wrist. IV Fluids: 0.9% NaCl at KVO. 0 mL infused prior to laborer poultry hatchery. Pre Procedural Pulses: bilateral radial was 1+. Pre Procedural Pulses: bilateral dorsalis pedis was 3+. Pre Procedural Pulses: bilateral posterior tibial was 2+. Oxygen started at 3liters/min via nasal canula. bilateral groins was prepped with chloroprep then draped in the usual sterile fashion. Physician notified. Patient's family unavailable. Equipment: 5F - Femoral. Heparinized Saline (2 units/mL), 1000 mL bag. Kit, Micropuncture. Cardiac Cath Pack. Equipment: 6F - Femoral. Physician arrived. Physician scrubbed in. Immediate Pre-Procedure Time Out. Correct Patient: Yes; Correct Procedure: Yes; Correct Site: Yes; Correct Patient Position: Yes; Correct Supplies: Yes; Dried Flammable Prep: Yes; Blood Products Available: N/A;. Lidocaine 1% infiltrated to the right groin. Arterial access obtained with micropuncture set. A CRD 5F JL4 Diagnostic Catheter was advanced over the wire and used for Left coronary angiography. Multiple views taken of left coronary artery. Catheter removed over the wire. A CRD 5F JR4 Diagnostic Catheter was advanced over the wire and used for Right coronary angiography. Multiple views taken of right coronary artery. Catheter removed over the wire. Physician review of films. Starting Intervention. 6 sinhala XB 3.5 guide catheter was inserted over the wire. Inventory is TR 180cm Runthrough NS extra floppy 0.014 wire. Inventory is CRD 6 FR XB 3.5 GUIDE. Guide seated in the LCS. Runthrough guidewire was advanced through the guide catheter to lesion in the mid Circ. Sample AO after rezeroing. Guidewire advanced across lesion, advanced down the OM1. Inflation number : 1 A AB TREK 2.50X12 RX BALLOON was prepped and advanced across the Mid CX , then inflated to 12 NINOSKA for 0:18 seconds. Inflation number: 2 The AB TREK 2.50X12 RX BALLOON was reinflated across the Mid CX, to 12 NINOSKA for 0:20 seconds. Results checked. Balloon out over the wire. Rubina Simpson RN WELDER OXYHYDROGENCHRISTIAN arce RN. Inflation Number : 3 A NIGHAT Yarbrough DONAVON 2.75X18 KEVIN -Lot Number# [id number] was prepped and advanced across the Mid CX. The stent was deployed at 12 NINOSKA for 0:22 seconds. EXP 02-07-24. Stent balloon out over the wire. Results checked. Wire pulled back into the guide. Results checked. Wire removed. Results checked. ACT drawn. Results 203 seconds. Therapeutic limits - pre-heparin administration 90-150 seconds and monitoring heparin during a vascular procedure >250 seconds. Guide catheter removed over the wire. A Right femoral angiogram was performed to determine safe placement of closure device. A Angio-Seal VIP ([place]) was successful obtaining hemostatsis at the Right Femoral artery insertion site. Angioseal placed without complications. No signs or symptoms of hematoma noted. Sterile dressing applied per usual sterile fashion. LOT# [id number] EXP 03-14-22. Post Procedure: Pulses reassessed and unchanged. PERRLA. Strong, equal hand pharmacy picking technician bilaterally. No VTE prophylaxis required. Medication's Wasted: Lidocaine 1% = 10 mL. Medication's Wasted: Nitro = 49.8 mg. Medication's Wasted: Heparin = 3000 units. Medication's Wasted: Phenylephrine = 9.8 mg. Total IV fluids: 302 mL. 3 minutes manual pressure to femoral access site per MD. Fluoro: 7:07. Contrast type used: Omnipaque 300 mg/mL, 150 mL bottle. [id number]. Post-op diagnosis: Severe Mid Circumflex stenosis. Complications: None. Estimated blood loss: 5mL-10mL. Responsiveness - Normal response to verbal stimuli; alert and oriented, PERRLA. Airway - Unaffected, no intervention required; spontaneous ventilation. Circulation: W/N/L, pulses unchanged. Nausea/Vomiting: No. Procedure completed. Vital chart was stopped. Vital chart was stopped. Patient transferred by bed to CPRU. Access Site Site: Right Femoral artery Sheath Size: 6 Fr Hemostasis Method: Angio-Seal VIP ([place]) Hemostasis Success: Successful Procedure Medications Start: 10:36 AM Stop: 10:36 AM Medication: Versed 1 mg and Fentanyl 25 mcg Amount: 1 Route: I.V. Start: 10:37 AM Stop: 10:37 AM Medication: Versed Amount: 1 mg Route: I.V. Start: 10:40 AM Stop: 10:40 AM Medication: Fentanyl Amount: 50 mcg Route: I.V. Start: 10:43 AM Stop: 10:43 AM Medication: Versed Amount: 1 mg Route: I.V. Start: 10:46 AM Stop: 10:46 AM Medication: 0.9% Saline Amount: 250 ml Route: I.V. drip Start: 10:55 AM Stop: 10:55 AM Medication: Heparin Amount: 7000 units Route: I.V. Start: 10:56 AM Stop: 10:56 AM Medication: Neosynephrine Amount: 100 mcg Route: I.V. Start: 11:00 AM Stop: 11:00 AM Medication: Neosynephrine Amount: 100 mcg Route: I.V. Start: 11:04 AM Stop: 11:04 AM Medication: Versed Amount: 1 mg Route: I.V. Start: 11:09 AM Stop: 11:09 AM Medication: Nitrogylcerin Amount: 200 mcg Route: I.C. Start: 11:19 AM Stop: 11:19 AM Medication: Heparin Amount: 1000 units Route: I.V. Start: 11:20 AM Stop: 11:20 AM Medication: Plavix Amount: 300 mg Route: P.O. Start: 11:20 AM Stop: 11:20 AM Medication: Aspirin Amount: 325 mg Route: P.O. Start: 11:14 AM Stop: 11:14 AM Medication: Fentanyl Amount: 25 mcg Route: I.V. I, the attending physician, have reviewed and verified all procedure medications. Yes, all medications given per verbal order History/Risk Factors Hypertension: Yes Dyslipidemia: Yes Peripheral Arterial Disease (PAD): No Myocardial Infarction (MS): No Obesity: No Renal Disease: No Prior Interventions PCI: Yes CABG: No Valve Surgery: No Date of PCI: 11/01/2018 Report Signatures Finalized by Ronak Shafer MD on 07/02/2021 04:59 PM
[2021-06-22] MEDS: diphenhydrAMINE 50 mg Capsule PO (10:14)
--- NOTE | 2021-06-22 10:34 | W.PM.OPSFHP ---
Same Day Surgery H&P Indication for Procedure/HPI DATE OF PROCEDURE: June 22, 2021 CHIEF COMPLAINT/INDICATIONFOR SURGICAL PROCEDURE: Worsening angina PREOP DIAGNOSIS: Chest pain with shortness of breath/worsening angina PLANNED PROCEDURE: Operation Date: 06/22/21 10:00 Proposed Procedures p Cardiac Catheterization(Left) - Ronak Shafer M.D Possible percutaneous coronary intervention ?55 year old man with past medical history of coronary artery disease, COPD, diabetes presented with worsening chest pain symptoms. She has been taking more nitros now. Her metoprolol and isosorbide was uptitrated as well. Plan for left heart cath with possible percutaneous coronary intervention today. Risks and benefits of the procedure have been discussed with the patient. No beds are available in the hospital. I did discuss that in case patient needs PCI we may not have beds available and we can reschedule her. However patient wanted to get the procedure done today. ROS CONSTITUTIONAL: No fever chills weight loss or gain or night sweats. [] HEENT: Normocephalic, atraumatic.[] RESPIRATORY: No cough, sputum, hemoptysis or wheezing.[] CARDIOVASCULAR: Has chest pain, and orthopnea, no lower extremity edema, presyncope or syncope. [] GI: no nausea vomiting diarrhea. [] WELDER APPRENTICE ARC: No numbness, tingling, weakness or loss of function in any part of the body. [] MUSCULOSKELETAL: No knee or joint pain or rashes. [] Medications/Allergies* Home Medications Medication Instructions Recorded Confirmed Type aspirin 81 mg capsule 81 mg PO DAILY #0 08/07/20 06/22/21 History omeprazole 20 mg capsule,delayed 20 mg PO DAILY 02/01/21 06/22/21 History release Allergies/Adverse Reactions Allergy/AdvReac Type Severity Reaction Status Date / Time duloxetine [From Cymbalta] Allergy Unknown Unknown Verified 06/10/21 15:47 paroxetine [From Paxil] AdvReac Mild ADR-Shakine Verified 06/10/21 15:47 ss bupropion [From Wellbutrin] AdvReac ADR-Vomitin Verified 06/10/21 15:47 g metformin AdvReac ADR-Diarrhe Verified 06/10/21 15:47 a Current Medications: Generic Name Dose Route Start Last Admin Trade Name Freq PRN Reason Stop Dose Admin Sodium Chloride 1,000 mls @ 50 mls/hr 02/08/22 09:00 06/22/21 10:14 Sodium Chloride 0.9% IV 06/23/21 04:59 Not Given .Q20H ONE Pertinent History/Comorbid Conditions* Medical History (Updated 06/18/21 @ 00:00 by ) Asthma Bipolar 1 disorder, mixed, moderate History of overdose CAD (coronary artery disease) DDD (degenerative disc disease), lumbar Diabetes mellitus with hyperglycemia, with long-term current use of insulin Dyslipidemia Dyspareunia GERD (gastroesophageal reflux disease) Hx of drug abuse Hypertension Nicotine dependence, cigarettes, uncomplicated Psychiatric care Type 2 diabetes mellitus Surgical History (Updated 03/03/21 @ 15:25 by Vianey Colunga APN, RADHA) H/O heart artery stent (~2018) 2 stents placed History of appendectomy History of cholecystectomy (02/13/14) Laparoscopic. [place] [facility] [place] of tubal ligation (~1993) . [place]. Jesus [place] [facility] [place] Hx of wisdom tooth extraction Family History (Updated 08/09/19 @ 08:33 by Kirsten Wolf LPN) Diabetes Grandmother Heart disease Grandmother maternal Mother Hypercholesteremia Grandmother maternal Mother Breast cancer Family/Other aunt and cousin Hypertension Grandmother maternal Social History Second hand smoke exposure: No Smoking risk assessment/counseling performed?: Yes Alcohol intake: unknown Desire information about alcohol rehabilitation?: No Counseling given: No Desire information about substance/drug rehabilitation?: No Counseling given: No Adopted: No Caregiver/support person: No Lives independently: Yes Housing: House Marital status: Number of children: 3 service: No Pets and animals: Yes History of recent travel: No Pertinent Exam Findings alert, oriented x 3, clear to auscultation bilaterally and regular rate & rhythm GENERAL: Patient is alert, awake and oriented x3. [] NECK: No jugular vein distension. [] HEENT: No cyanosis. No icterus. No pallor. [] HEART: Regular S1 and S2. No murmur, rub or gallop. [] LUNGS: Clear to auscultate bilaterally. [] ABDOMEN: Soft, nontender and nondistended. Positive bowel sounds. No guarding, rebound or tenderness. [] CENTRAL NERVOUS SYSTEM: Grossly nonfocal. [] EXTREMITIES: Lower extremities with 1+ edema bilaterally. Pulses palpable in the lower extremities, both dorsalis pedis and posterior tibial. [] Conscious Sedation Assessment PATIENT ASSESSED PRIOR TO SEDATION, WITH NO CHANGE NOTED: Yes AIRWAY EVAL/ANESTHESIA PLAN: normal airway, ASA III, Monitored Anesthesia, Local Anesthesia, Risks, benefits & alternatives of sedation and/or procedure discussed and Patient agrees to continue as planned Recommendations Surgery/Procedure today (Left heart cath with possible percutaneous coronary intervention) Coding Level of Care Code Acute Automotive Metalsmith for Abida Wharton
== END 2021-06-22 17:49 | disposition home or self-care (01) ==
PROVIDERS: PCP Nurse Practitioner; Visit Provider Internal Medicine
DX: I25.10 Atherosclerotic heart disease of native coronary artery without angina pectoris (principal); I25.82 Chronic total occlusion of coronary artery; I10 Essential (primary) hypertension; E78.5 Hyperlipidemia, unspecified; J44.9 Chronic obstructive pulmonary disease, unspecified; Z79.82 Long term (current) use of aspirin; M51.36 Other intervertebral disc degeneration, lumbar region; E11.65 Type 2 diabetes mellitus with hyperglycemia; Z79.4 Long term (current) use of insulin; K21.9 Gastro-esophageal reflux disease without esophagitis; F17.210 Nicotine dependence, cigarettes, uncomplicated; Z95.5 Presence of coronary angioplasty implant and graft; Z82.49 Family history of ischemic heart disease and other diseases of the circulatory system; Z83.3 Family history of diabetes mellitus
CPT/HCPCS: 36415; 85347; 93454; C1725; C1760; C1769; C1874; C1887; C1894; C9600; J1644; J2250; J2370; J3010; J3490; J7030; J7050; Q0163; Q9967

== ENCOUNTER → 2021-06-30 15:20 | Outpatient (BNVA) | payer MEDICARE, MEDICAID, SELFPAY | PROVIDERS: PCP Nurse Practitioner; Visit Provider Nurse Practitioner Family | DX: I20.0 Unstable angina (principal) | CPT/HCPCS: 80048 ==

== ENCOUNTER → 2021-07-05 08:13 | Outpatient (BNVA) | payer MEDICARE, MEDICAID, SELFPAY | PROVIDERS: PCP Nurse Practitioner; Visit Provider Nurse Practitioner Psychiatric/Mental Health | DX: F31.62 Bipolar disorder, current episode mixed, moderate (principal); F17.210 Nicotine dependence, cigarettes, uncomplicated | CPT/HCPCS: 99214 ==

== ENCOUNTER → 2021-07-22 14:37 | Outpatient (BNVA) | payer MEDICARE, MEDICAID, SELFPAY | PROVIDERS: PCP Nurse Practitioner; Visit Provider Nurse Practitioner | DX: E11.65 Type 2 diabetes mellitus with hyperglycemia (principal); Z79.4 Long term (current) use of insulin | CPT/HCPCS: 81000 ==

== ENCOUNTER → 2021-07-27 11:01 | Outpatient (BNVA) | payer MEDICARE, MEDICAID, SELFPAY | PROVIDERS: PCP Nurse Practitioner; Visit Provider Nurse Practitioner | DX: E11.65 Type 2 diabetes mellitus with hyperglycemia (principal); Z79.4 Long term (current) use of insulin; R82.90 Unspecified abnormal findings in urine | CPT/HCPCS: 80053; 80061; 83036; 85025; 87086 ==

== ENCOUNTER → 2021-08-03 15:19 | Outpatient (BNVA) | payer MEDICARE, MEDICAID, SELFPAY | PROVIDERS: PCP Nurse Practitioner; Visit Provider Internal Medicine | DX: I25.110 Atherosclerotic heart disease of native coronary artery with unstable angina pectoris (principal); I10 Essential (primary) hypertension; E78.5 Hyperlipidemia, unspecified; F17.200 Nicotine dependence, unspecified, uncomplicated | CPT/HCPCS: 99214 ==

== ENCOUNTER → 2021-08-16 07:42 | Outpatient (BNVA) | payer MEDICARE, MEDICAID, SELFPAY | PROVIDERS: PCP Nurse Practitioner; Visit Provider Nurse Practitioner Psychiatric/Mental Health | DX: F31.62 Bipolar disorder, current episode mixed, moderate (principal); F17.210 Nicotine dependence, cigarettes, uncomplicated | CPT/HCPCS: 99214 ==

== ENCOUNTER → 2021-10-12 07:25 | Outpatient (BNVA) | payer MEDICARE, MEDICAID, SELFPAY | PROVIDERS: PCP Nurse Practitioner; Visit Provider Nurse Practitioner Psychiatric/Mental Health | DX: F31.62 Bipolar disorder, current episode mixed, moderate (principal); F17.210 Nicotine dependence, cigarettes, uncomplicated | CPT/HCPCS: 99214 ==

== ENCOUNTER → 2022-01-18 12:45 | Outpatient (BNVA) | payer MEDICARE, MEDICAID, SELFPAY | PROVIDERS: PCP Nurse Practitioner; Visit Provider Internal Medicine | DX: I25.110 Atherosclerotic heart disease of native coronary artery with unstable angina pectoris (principal); I10 Essential (primary) hypertension; E78.5 Hyperlipidemia, unspecified; R06.02 Shortness of breath; F17.200 Nicotine dependence, unspecified, uncomplicated | CPT/HCPCS: 99214 ==

== ENCOUNTER 2022-04-20 11:53 | Outpatient (CLI) | payer MEDICARE, MEDICAID, SELFPAY ==
--- NOTE | 2022-04-20 12:07 | MM_ITS ---
WS: [id number] BILATERAL SCREENING DIGITAL TOMOSYNTHESIS MAMMOGRAM WITH CAD HISTORY: SCREENING COMPARISON: 03/19/2021, 02/12/2022 and 01/04/2019 Bilateral CC and MLO views with tomosynthesis and synthetic mammography submitted. Computer aided det ection analyzed. Breast composition: There are scattered areas of fibroglandular density. No suspicious masses, microc alcifications or architectural distortion. Stable 5 mm nodule in the central LEFT breast. MM/[place] [id number] IMPRESSION: BI-RADS: 2-Benign FOLLOW UP: 1 Year Follow-up
== END 2022-04-20 11:54 | disposition home or self-care (01) ==
PROVIDERS: PCP Nurse Practitioner; Visit Provider Nurse Practitioner
DX: Z12.31 Encounter for screening mammogram for malignant neoplasm of breast (principal)
CPT/HCPCS: 77063; 77067

== ENCOUNTER 2022-06-11 20:35 | Emergency (ER) | payer MEDICARE, MEDICAID, SELFPAY ==
[2022-06-11 20:37] VITALS: BP 121/86; PULSE 102; RESP 18; TEMP 37.1; O2SAT 97; BMI 22.6
--- NOTE | 2022-06-11 20:47 | XRR_ITS ---
PROCEDURE INFORMATION: Exam: XR Chest Exam date and time: 06/11/2022 9:22 PM Age: 56 years old Clinical indication: Sternal or substernal pain; Additional info: Cp TECHNIQUE: Imaging protocol: Radiologic exam of the chest. Views: 1 view. COMPARISON: CR XR chest 1V portable [id number] 06/10/2021 12:34 PM FINDINGS: Lungs: Unremarkable. No consolidation. Pleural spaces: Unremarkable. No pleural effusion. No pneumothorax. Heart/Mediastinum: Unremarkable. No cardiomegaly. Bones/joints: Unremarkable. XR/XR chest 1V portable [id number] IMPRESSION: No change, unremarkable
--- NOTE | 2022-06-11 20:47 | ECG_ITS ---
[facility] Test Date: 2022-06-11 Pat Name: Jaida Thorpe Department: Room: Gender: Female Slab Lifting Engineer: : 1965 Requested By: Andrei Sosa Order Number: [id number] Val MD: Ronak Shafer M.D. Measurements Intervals [place] Rate: 96 P: 67 [place]: 167 QRS: -29 QRSD: 88 T: 54 QT: 363 QTc: 459 Interpretive Statements SINUS RHYTHM PROBABLE INFERIOR MYOCARDIAL INFARCTION , PROBABLY OLD [35 ms Q WAVE IN II/aVF] Compared to ECG 06/10/2021 14:49:04 No significant changes Electronically Signed On 06-12-2022 11:20:44 SUPERVISOR SANDBLASTER by Ronak Shafer M.D. [email or web address] [facility] Financingmississippi state [email or web address] clinic [facility].Branch2/store/NU/[id number] f
--- NOTE | 2022-06-11 21:19 | W.ED.CHESTPA ---
HPI - Chest Pain General: Chief Complaint: Chest Pain Stated Complaint: CHEST PAIN Time Seen by Provider: 06/11/22 20:45 Source: patient History of Present Illness: 56-year-old rather cantankerous female with a history of coronary disease. She presents with chest discomfort. It seems to be worse with inspiration. She notes that she has had acid in her chest as well and vomited 1 time. She has had a cough with some sputum production. MD complaint: chest pain Pertinent past history: coronary artery disease Onset (ago): day(s) Timing of current episode: constant Prior episodes: Yes Onset: during rest Pain location: substernal Pain radiation: none Quality: burning Relieving factors: nothing Exacerbating factors: nothing Associated symptoms: Reports dyspnea, nausea and vomiting; Deny abdominal pain, fever(s) or palpitations Review of Systems Const: Denies: fever(s) ENMT: Denies: throat pain Card: Reports: chest pain; Denies: palpitations Resp: Reports: dyspnea and productive cough GI: Reports: nausea and vomiting; Denies: abdominal pain PFSH ED PFSH: Medical History Asthma Bipolar 1 disorder, mixed, moderate History of overdose CAD (coronary artery disease) DDD (degenerative disc disease), lumbar Diabetes mellitus with hyperglycemia, with long-term current use of insulin Dyslipidemia Dyspareunia GERD (gastroesophageal reflux disease) Hx of drug abuse Hypertension Nicotine dependence, cigarettes, uncomplicated Psychiatric care Type 2 diabetes mellitus Surgical History H/O heart artery stent (~2018) 2 stents placed History of appendectomy History of cholecystectomy (02/13/14) Laparoscopic. Performed by Dr. Wahl at [facility] [place] History of tubal ligation (~1993) . Performed by Dr. Jesus at [facility] [place]. Hx of wisdom tooth extraction Family History Family/Other Breast cancer aunt and cousin Grandmother Diabetes Hypertension maternal Heart disease maternal Hypercholesteremia maternal Mother Heart disease Hypercholesteremia Social History Smoking and tobacco status: current every day smoker Second hand smoke exposure: No Smoking risk assessment/counseling performed?: Yes Alcohol intake: unknown Desire information about alcohol rehabilitation?: No Counseling given: No Desire information about substance/drug rehabilitation?: No Counseling given: No Adopted: No Caregiver/support person: No Lives independently: Yes Housing: House Marital status: Number of children: 3 service: No Pets and animals: Yes History of recent travel: No Physical Exam Const: COMMON NORMALS: no acute distress GENERAL APPEARANCE: cooperative; not ill appearing and not frail appearing HENMT: COMMON NORMALS: normocephalic, atraumatic and Normal external nose present HEAD & SCALP: normocephalic and atraumatic FACE & SINUS: normal facial exam and face symmetric NOSE: Normal external nose present Eye: COMMON NORMALS: Equal, round and reactive pupils present and EOMs intact bilaterally PUPIL: Yes Equal, round and reactive pupils present Neck/C-Spine: GENERAL: Yes trachea midline Chest: CHEST: Yes Symmetrical chest wall rise Resp: COMMON NORMALS: normal respiratory effort, No retractions, No use of accessory muscles and clear to auscultation bilaterally AUSCULTATION: clear to auscultation bilaterally Cardio: COMMON NORMALS: regular rate and regular rhythm RATE: regular rate RHYTHM: regular rhythm GI: COMMON NORMALS: Normal to inspection, nondistended, normoactive bowel sounds present Extremity: COMMON NORMALS: no pedal edema Neuro: NATACHA COMA SCALE: document GCS findings Natacha coma scale eye opening: Spontaneous Natacha coma scale verbal response: Orientated Weems coma scale motor response: Obey commands Natacha coma scale total score: 15 SENSORY EXAM: Yes extremities (intact) Psych: COMMON NORMALS: speech normal SPEECH: Yes normal speech Skin: COMMON NORMALS: no rashes or lesions noted GENERAL SKIN EXAM: no rashes or lesions noted Course Vital Signs: Vital signs: Vital Signs Temperature 98.7 F 06/11/22 20:37 Pulse Rate 90 06/12/22 00:01 Respiratory Rate 17 06/11/22 23:15 Blood Pressure 120/94 06/12/22 00:01 Pulse Oximetry 96 06/12/22 00:01 Oxygen Delivery Me thod 06/11/22 23:15 MDM - Chest Pain Medical Decision Making Patient presents with chest discomfort, burning, cough. She complains of an acid sensation in her stomach and chest. She was given a GI cocktail with some improvement. The patient was a difficult IV stick, and is up refusing an IV. Laboratory was able to get her blood. Her CBC is normal. Her BMP is not remarkable, except for a high glucose of 328. Her troponin is 8. Her BNP is 50. Her chest x-ray is negative. D-dimer slightly elevated, however her heart rate has been under 100, and her saturations been above 97% on room air. With no troponin leakage, in those vitals, it is unlikely she has a pulmonary embolus. Her EKG shows a sinus rhythm with Q waves in 2 3 and aVF, but no acute ST changes. Ernul is normal. Intervals are normal. Rate is 90. She'll be discharged to return for worsening symptoms. Lab Data 06/11/22 21:15 06/11/22 21:15 Radiology Impressions Chest X-Ray 06/11/22 20:47 IMPRESSION: No change, unremarkable Laboratory Results WBC 7.3 10^3/uL (4.0-10.0) 06/11/22 21:15 RBC 5.14 10^6/uL (4.1-5.3) 06/11/22 21:15 Hgb 15.0 g/dL (11.5-15.3) 06/11/22 21:15 Hct 45.0 % (37.0-47.0) 06/11/22 21:15 MCV 87.5 fl (81-99) 06/11/22 21:15 MCH 29.2 pg (28.0-34.0) 06/11/22 21:15 MCHC 33.3 g/dL (30.0-36.0) 06/11/22 21:15 RDW 12.5 % (12.1-15.1) 06/11/22 21:15 Plt Count 173 10^3/cmm (130-400) 06/11/22 21:15 MPV 12.0 fL (7.4-10.4) H 06/11/22 21:15 Neut % (Auto) 41.4 % 06/11/22 21:15 Lymph % (Auto) 51.4 % 06/11/22 21:15 Boyd % (Auto) 5.2 % 06/11/22 21:15 Eos % (Auto) 1.5 % 06/11/22 21:15 Baso % (Auto) 0.4 % 06/11/22 21:15 Neut # (Auto) 3.01 10^3/uL (1.8-7.7) 06/11/22 21:15 Lymph # (Auto) 3.7 10^3/uL (0.8-4.8) 06/11/22 21:15 Boyd # (Auto) 0.4 10^3/uL (0.2-0.9) 06/11/22 21:15 Eos # (Auto) 0.1 10^3/uL (0.0-0.8) 06/11/22 21:15 Baso # (Auto) 0.0 10^3/uL (0.0-0.1) 06/11/22 21:15 Nucleated RBC % (auto) 0 % 06/11/22 21:15 Nucleated RBCs # 0.0 /100WBC 06/11/22 21:15 D-Dimer 1.39 ug/mIFEU (0-0.59) H 06/11/22 21:15 Sodium 130 mmol/L (136-145) L 06/11/22 21:15 Potassium 4.1 mmol/L (3.5-5.1) 06/11/22 21:15 Chloride 92 mmol/L (98-107) L 06/11/22 21:15 Carbon Dioxide 21 mmol/L (22-29) L 06/11/22 21:15 Anion Gap 21.1 (5-19) H 06/11/22 21:15 BUN 6 mg/dL (6-20) 06/11/22 21:15 Creatinine 0.8 mg/dL (0.5-0.9) 06/11/22 21:15 GFR Calculation 74.2 mL/min (90-130) L 06/11/22 21:15 Glucose 328 mg/dL (65-115) H 06/11/22 21:15 Calculated Osmolality 280 mOsm/kg (285-295) L 06/11/22 21:15 Calcium 10.5 mg/dL (8.5-10.5) 06/11/22 21:15 Total Bilirubin 0.5 mg/dL (0.15-1.2) 06/11/22 21:15 AST 20 U/L (0-32) 06/11/22 21:15 ALT 13 U/L (0-33) 06/11/22 21:15 Alkaline Phosphatase 143 U/L (35-105) H 06/11/22 21:15 Troponin T Baseline 8 ng/L (0-10) 06/11/22 21:15 NT-Pro-B Natriuret Pep 50 pg/mL (0-125) 06/11/22 21:15 Total Protein 7.6 g/dL (6.6-8.7) 06/11/22 21:15 Albumin 3.9 g/dL (3.5-5.2) 06/11/22 21:15 Globulin 3.7 g/dL (1.3-4.6) 06/11/22 21:15 Discharge Plan Discharge Patient Disposition: Home Clinical Impression: Chest pain Condition: Stable Prescriptions: No Action albuterol sulfate [Ventolin HFA] 90 mcg/actuation HFA aerosol inhaler 2 puff INHALATION QID Qty: 8.5 2RF Calcium 600 + D(3) 600 mg calcium- 200 unit capsule 1 cap PO DAILY Qty: 30 2RF (DME) pen needle, diabetic 33 gauge x 5/32 needle See Rx Instructions .ROUTE .MEDSUPPLY Qty: 100 1RF Rx Instructions: 1 time day Ozempic 1 mg/dose (2 mg/1.5 mL) pen injector 1 mg SUBCUT .weekly Qty: 3 2RF fenofibrate nanocrystallized [Tricor] 145 mg tablet 145 mg PO DAILY Qty: 30 2RF Rx Instructions: No Crestor clopidogrel [Plavix] 75 mg tablet 75 mg PO DAILY Qty: 30 2RF omeprazole 20 mg capsule,delayed release(DR/EC) 20 mg PO DAILY (DME) DME: Walker Unit See Rx Instructions .ROUTE .MEDSUPPLY Qty: 1 0RF Rx Instructions: Code E0143 and E0156 walker 4 wheels and seat (DME) True Metrix Glucose Test Strip Strip See Rx Instructions .Route Qty: 100 2RF Rx Instructions: use 3 times day Levemir FlexTouch U-100 Insuln 100 unit/mL (3 mL) insulin pen See Rx Instructions SUBCUT DAILY Qty: 15 2RF Rx Instructions: up 70 units SUBCUT daily; Farxiga 10 mg tablet 10 mg PO QAM Qty: 30 2RF Rx Instructions: dose decrease quetiapine [Seroquel] 200 mg tablet 200 mg PO DIRECTED Qty: 90 2RF Rx Instructions: Take one tablet one hour prior to bedtime quetiapine [Seroquel] 50 mg tablet 50 mg PO BID PRN (Reason: anxiety/agitation) Qty: 180 2RF Rx Instructions: May take half to one tablet twice per day as needed for anxiety/agitation hydroxyzine HCl 50 mg tablet 50 mg PO BID PRN (Reason: anxiety) Qty: 180 2RF Rx Instructions: Take one tablet twice per day as needed for anxiety nitroglycerin 0.3 mg tablet, sublingual 0.3 mg SUBLINGUAL Q5M PRN (Reason: chest pain) Qty: 25 3RF Rx Instructions: until response; do not exceed 3 doses per episode isosorbide mononitrate 30 mg tablet extended release 24 hr 60 mg PO DAILY Qty: 180 1RF metoprolol tartrate 25 mg tablet 50 mg PO BID Qty: 180 1RF cetirizine [Zyrtec] 10 mg tablet 10 mg PO DAILY Qty: 30 1RF Spiriva Respimat 2.5 mcg/actuation mist 2 puff inhalation DAILY Qty: 4 0RF aspirin 81 mg Capsule 81 mg PO DAILY Qty: 0 Discharge Orders: Discharge ED (Routine); Ordered 06/11/22 Ordered By: Andrei Lane Referrals: Humaira Perdue, SALES CONTRACTS ANALYST-C [Primary Care Provider] - Patient Instructions: Opioid Safety, Pain Management Activity Restrictions/Additional Instructions: Return for worsening chest pain, shortness of breath, fever, other concerning symptoms. Coding Level of Care Code ED Body Hanger for Abida Fwtomasa Exam Comprehensive
[2022-06-11] MEDS: lidocaine 2% viscous 15 ML, aluminum-mag hydrox-simethicon 30 ML, sucralfate oral liq 1 GM PO (21:47)
[2022-06-11 22:00] LABS: Basophils % 0.4 %; Eosinophils # 0.1 10^3/uL (0.0-0.8); Eosinophils % 1.5 %; Lymphocytes # 3.7 10^3/uL (0.8-4.8); Lymphocytes % 51.4 %; Mean Corpuscular HGB Conc 33.3 g/dL (30.0-36.0); Mean Corpuscular Hemoglobin 29.2 pg (28.0-34.0); Mean Corpuscular Volume 87.5 fl (81-99); Monocytes # 0.4 10^3/uL (0.2-0.9); Monocytes % 5.2 %; Neutrophils # 3.01 10^3/uL (1.8-7.7); Neutrophils % 41.4 %; Nucleated Red Blood Cells % 0 %; Platelet Count 173 10^3/cmm (130-400); Red Blood Count 5.14 10^6/uL (4.1-5.3); Red Cell Distribution Width 12.5 % (12.1-15.1); White Blood Count 7.3 10^3/uL (4.0-10.0)
[2022-06-11 22:14] LABS: D Dimer 1.39 ug/mIFEU (0-0.59)
[2022-06-11 22:23] LABS: Slide Review Slide Review Perform; Troponin(5th) Baseline 8 ng/L (0-10)
[2022-06-11 22:35] LABS: Alanine Aminotransferase 13 U/L (0-33); Albumin Level 3.9 g/dL (3.5-5.2); Alkaline Phosphatase 143 U/L (35-105); Blood Urea Nitrogen 6 mg/dL (6-20); Calcium 10.5 mg/dL (8.5-10.5); Carbon Dioxide 21 mmol/L (22-29); Chloride 92 mmol/L (98-107); Creatinine Clr Calc Pharmacy 75.5913; Globulin 3.7 g/dL (1.3-4.6); Glomerular Filtration Rate 74.2 mL/min (90-130); Glucose 328 mg/dL (65-115); NT Pro B Type Natriuretic Pept 50 pg/mL (0-125); Osmolality Calculated 280 mOsm/kg (285-295); Sodium 130 mmol/L (136-145); Total Bilirubin 0.5 mg/dL (0.15-1.2); Total Protein 7.6 g/dL (6.6-8.7)
[2022-06-11 22:45] LABS: Anion Gap 21.1 (5-19); Aspartate Amino Transferase 20 U/L (0-32); Potassium 4.1 mmol/L (3.5-5.1)
[2022-06-11 23:15] VITALS: BP 120/94; PULSE 89; RESP 17; O2SAT 97
[2022-06-12 00:01] VITALS: BP 120/94; PULSE 90; O2SAT 96
== END 2022-06-12 00:06 | disposition home or self-care (01) ==
PROVIDERS: Emergency Provider Emergency Medicine; PCP Nurse Practitioner
DX: R07.9 Chest pain, unspecified (principal); Z79.02 Long term (current) use of antithrombotics/antiplatelets; Z79.4 Long term (current) use of insulin; Z79.82 Long term (current) use of aspirin; F17.210 Nicotine dependence, cigarettes, uncomplicated; I25.10 Atherosclerotic heart disease of native coronary artery without angina pectoris; E11.9 Type 2 diabetes mellitus without complications; E78.5 Hyperlipidemia, unspecified; I10 Essential (primary) hypertension
CPT/HCPCS: 71045; 80053; 83880; 84484; 85025; 85378; 93005; 99285

== ENCOUNTER 2022-06-12 09:10 | Inpatient (IN) | payer MEDICARE, MEDICAID, SELFPAY ==
[2022-06-12 09:15] VITALS: TEMP 36.1; BMI 22.6
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
[2022-06-12 09:25] VITALS: BP 187/127; PULSE 114; RESP 20; O2SAT 98
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
--- NOTE | 2022-06-12 09:39 | PC.NURSE ---
pt okay with updating her daughter
[2022-06-12 09:48] LABS: Basophils # 0.1 10^3/uL (0.0-0.1); Basophils % 0.6 %; Eosinophils # 0.1 10^3/uL (0.0-0.8); Eosinophils % 1.6 %; Hematocrit 48.1 % (37.0-47.0); Hemoglobin 15.6 g/dL (11.5-15.3); Lymphocytes # 3.5 10^3/uL (0.8-4.8); Lymphocytes % 43.8 %; Mean Corpuscular HGB Conc 32.4 g/dL (30.0-36.0); Mean Corpuscular Hemoglobin 28.6 pg (28.0-34.0); Mean Corpuscular Volume 88.3 fl (81-99); Mean Platelet Volume 10.4 fL (7.4-10.4); Monocytes # 0.5 10^3/uL (0.2-0.9); Monocytes % 5.8 %; Neutrophils # 3.84 10^3/uL (1.8-7.7); Neutrophils % 47.9 %; Nucleated Red Blood Cells % 0 %; Platelet Count 250 10^3/cmm (130-400); Red Blood Count 5.45 10^6/uL (4.1-5.3); Red Cell Distribution Width 12.6 % (12.1-15.1)
[2022-06-12 10:07] LABS: Alanine Aminotransferase 14 U/L (0-33); Albumin Level 4.1 g/dL (3.5-5.2); Alkaline Phosphatase 151 U/L (35-105); Anion Gap 22.7 (5-19); Aspartate Amino Transferase 14 U/L (0-32); Blood Urea Nitrogen 7 mg/dL (6-20); Calcium 10.1 mg/dL (8.5-10.5); Carbon Dioxide 20 mmol/L (22-29); Chloride 93 mmol/L (98-107); Globulin 3.8 g/dL (1.3-4.6); Glomerular Filtration Rate 64.8 mL/min (90-130); Glucose 317 mg/dL (65-115); Osmolality Calculated 284 mOsm/kg (285-295); Potassium 3.7 mmol/L (3.5-5.1); Sodium 132 mmol/L (136-145); Total Bilirubin 0.6 mg/dL (0.15-1.2); Total Protein 7.9 g/dL (6.6-8.7)
[2022-06-12 10:18] LABS: Acetaminophen < 5.0 ug/mL (10-30); Alcohol Level < 10 mg/dL (0-10); Salicylate < 0.3 mg/dL (3-10)
--- NOTE | 2022-06-12 10:59 | PC.NURSE ---
spoke with Jn, a pharmacist with [facility] regarding medications pt took. Recommended to monitor blood glucose and blood pressure. pt may have drowsiness and fatigue from Zoloft, N/V is unlikely but possible, as well as dry mouth and mild tachycardia. Dr. Connelly updated
[2022-06-12 11:45] LABS: Amphetamines Screen Urine Negative (Negative); Barbiturates Screen Urine Negative (Negative); Benzodiazepines Screen Urine Negative (Negative); Cocaine Screen Urine Negative (Negative); Opiate Screen Urine Negative (Negative); PCP Screen Urine Negative (Negative); THC Screen Urine Negative (Negative)
[2022-06-12 12:24] LABS: Blood Urine 3+ (Negative); Glucose Urine UA 4+ (Normal); Ketones Urine Negative (Negative); Nitrate Urine Negative (Negative); Protein Urine 1+ (Negative); Specific Gravity, Urine 1.015 (1.005-1.030); Urine Appearance Hazy (CLEAR); Urine Color Straw (Yellow); pH Urine 5 (5-7)
[2022-06-12 12:25] LABS: Add Urine Microscopic? YES; Bilirubin Urine Neg (Negative); Leukocyte Esterase Urine 2+ (Negative); RBC Urine 15-25 /hpf (0-2); Urobilinogen Urine Norm (Negative); WBC Urine 25-40 /hpf (0-5)
[2022-06-12 12:26] LABS: Add Urine Culture? No; Bacteria Urine 2+ /hpf; Mucus Urine 1+ /hpf; Squamous Epithelial Cell Urine 15-25 /hpf (0-5)
[2022-06-12] MEDS: cefTRIAXone 1,000 MG in water for injection-sterile 2.1 ML 2.5 MG IM (13:41)
--- NOTE | 2022-06-12 13:54 | PC.NURSE ---
report called to Maria Elena on [facility]
[2022-06-12 14:10] VITALS: BP 119/81; PULSE 127; RESP 20; TEMP 36.6; O2SAT 92
[2022-06-12 16:59] LABS: Glucose Point of Care 392 mg/dL (70-110)
[2022-06-12] MEDS: metoprolol tartrate 50 mg Tablet PO (17:21)
[2022-06-12] MEDS: insulin lispro 100 unit/1 mL SUBCUT ×2 (17:21→20:15)
[2022-06-12 20:03] LABS: Glucose Point of Care 142 mg/dL (70-110)
[2022-06-12 20:14] VITALS: BP 110/75; PULSE 70; RESP 17; TEMP 37.3; O2SAT 95
[2022-06-12] MEDS: albuterol 2.5 mg/3 mL Neb NEBULIZER (20:18)
[2022-06-12 20:21] VITALS: PULSE 79; RESP 14; O2SAT 97
[2022-06-12] MEDS: alum-mag-hydroxide-sime 30 mL UDC PO (22:16)
[2022-06-13] MEDS: ipratropium 0.5 mg/2.5 mL Neb INHALATION (07:46)
[2022-06-13] MEDS: albuterol 2.5 mg/3 mL Neb NEBULIZER (07:46)
[2022-06-13 07:47] VITALS: PULSE 78; RESP 18; O2SAT 99
[2022-06-13 07:51] VITALS: PULSE 82
[2022-06-13 08:02] LABS: Glucose Point of Care 292 mg/dL (70-110)
[2022-06-13] MEDS: aspirin 81 mg EC Tablet PO (08:45)
[2022-06-13] MEDS: cetirizine 10 mg Tablet PO (08:45)
[2022-06-13] MEDS: fenofibrate 145 mg Tablet PO (08:45)
[2022-06-13] MEDS: calcium carb-vit d 600mg/400unit 1 Tablet 1 EACH PO (08:45)
[2022-06-13] MEDS: insulin lispro 100 unit/1 mL SUBCUT ×3 (08:46→17:31)
[2022-06-13] MEDS: pantoprazole DR 40 mg Tablet PO (08:46)
[2022-06-13] MEDS: metoprolol tartrate 50 mg Tablet PO ×2 (08:46→17:32)
[2022-06-13] MEDS: isosorbide mononitrate ER 60 mg Tablet PO (08:49)
[2022-06-13] MEDS: clopidogrel 75 mg Tablet PO (08:49)
[2022-06-13] MEDS: insulin glargine 100 units/1 mL 70 UNIT SUBCUT (08:58)
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
[2022-06-13 12:17] LABS: Glucose Point of Care 236 mg/dL (70-110)
[2022-06-13 14:00] VITALS: RESP 17
[2022-06-13] MEDS: ondansetron 4 MG Tablet PO (16:13)
[2022-06-13 17:29] LABS: Glucose Point of Care 245 mg/dL (70-110)
[2022-06-13 20:15] LABS: Glucose Point of Care 117 mg/dL (70-110)
[2022-06-13] MEDS: quetiapine 100 mg Tablet 200 MG PO (20:23)
[2022-06-13 20:44] VITALS: BP 95/66; PULSE 72; RESP 16; TEMP 37.2; O2SAT 98
[2022-06-14 05:57] VITALS: RESP 18
[2022-06-14] MEDS: isosorbide mononitrate ER 60 mg Tablet PO (08:24)
[2022-06-14] MEDS: cetirizine 10 mg Tablet PO (08:24)
[2022-06-14] MEDS: calcium carb-vit d 600mg/400unit 1 Tablet 1 EACH PO (08:24)
[2022-06-14] MEDS: aspirin 81 mg EC Tablet PO (08:24)
[2022-06-14] MEDS: fenofibrate 145 mg Tablet PO (08:24)
[2022-06-14] MEDS: clopidogrel 75 mg Tablet PO (08:24)
[2022-06-14] MEDS: metoprolol tartrate 50 mg Tablet PO ×2 (08:24→17:24)
[2022-06-14] MEDS: insulin lispro 100 unit/1 mL SUBCUT ×3 (08:25→20:20)
[2022-06-14] MEDS: insulin glargine 100 units/1 mL 70 UNIT SUBCUT (08:25)
[2022-06-14 08:28] LABS: Glucose Point of Care 167 mg/dL (70-110)
[2022-06-14 11:32] LABS: Glucose Point of Care 93 mg/dL (70-110)
[2022-06-14 14:00] VITALS: BP 104/72; PULSE 78; RESP 18; TEMP 36.8; O2SAT 96
[2022-06-14] MEDS: escitalopram 10 mg Tablet PO (15:25)
[2022-06-14 17:23] LABS: Glucose Point of Care 245 mg/dL (70-110)
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
[2022-06-14] MEDS: hyDROXYzine 25 mg Capsule 50 MG PO (20:24)
[2022-06-14 20:25] VITALS: BP 98/63; PULSE 63; RESP 18; TEMP 36.9; O2SAT 98
[2022-06-14 21:23] LABS: Glucose Point of Care 240 mg/dL (70-110)
[2022-06-14] MEDS: OLANZapine 5 mg ODT PO (22:13)
[2022-06-15 08:55] LABS: Glucose Point of Care 61 mg/dL (70-110)
[2022-06-15] MEDS: calcium carb-vit d 600mg/400unit 1 Tablet 1 EACH PO (09:16)
[2022-06-15] MEDS: aspirin 81 mg EC Tablet PO (09:16)
[2022-06-15] MEDS: clopidogrel 75 mg Tablet PO (09:16)
[2022-06-15] MEDS: metoprolol tartrate 50 mg Tablet PO (09:16)
[2022-06-15] MEDS: isosorbide mononitrate ER 60 mg Tablet PO (09:16)
[2022-06-15] MEDS: cetirizine 10 mg Tablet PO (09:16)
[2022-06-15] MEDS: fenofibrate 145 mg Tablet PO (09:16)
[2022-06-15] MEDS: escitalopram 10 mg Tablet PO (09:16)
--- NOTE | 2022-06-15 09:17 | PC.NURSE ---
REFUSED SCHEDULED PROTONIX
--- NOTE | 2022-06-15 09:20 | PC.NURSE ---
SHIFT ASSESSMENT IRRITABLE AFFECT NOTED, ISOLATES TO ROOM, DID COME TO [facility]URSES STATION TO RECEIVE SCHEDULED MEDICATIONS. TOOK ALL MEDS BUT REFUSED SCHEDULED PROTONIX. DENIES ANY HALLUCINATIONS CURRENTLY, BUT SAID IF THEY DON'T CHANGE MY MEDS LIKE I'VE BEEN ASKING THEN I'M NOT GOING TO BE HAPPY!
[2022-06-15 09:45] LABS: Glucose Point of Care 134 mg/dL (70-110)
[2022-06-15] MEDS: insulin glargine 100 units/1 mL 70 UNIT SUBCUT (09:47)
--- NOTE | 2022-06-15 10:21 | PC.NURSE ---
c/o anxiety, asking for medications, offered PRN Vistari, Zyprexa, Seroquel, pt said she didn't want any of those medications as they don't work! irritable affect continued
[2022-06-15 12:42] LABS: Glucose Point of Care 294 mg/dL (70-110)
[2022-06-15] MEDS: insulin lispro 100 unit/1 mL SUBCUT (12:45)
[2022-06-15 14:00] VITALS: RESP 17
--- NOTE | 2022-06-15 16:35 | PC.OT ---
OT Rc Held - Patient evaluation held on this day secondary to nurse request. Patient not appropriate for evaluation at this time. Will try again at a later date.
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
[2022-06-15] MEDS: haloperidol 5 mg Tablet PO (17:28)
--- NOTE | 2022-06-15 17:29 | PC.NURSE ---
Addendum entered by Nubia Raymond LPN 06/15/22 18:52: prn med not yet effective, pt up to nurses station asking for more drink, provided by staff, said that damn pill isn't doing a damn thing staff offered other PRN medications for anxiety such as Vistaril or Zyprexa Zydis, pt refused both saying they won't do a damn thing Original Note: PRN HALDOL 5 MG GIVEN PO PER PT C/O AGITATION. PT SITTING AT NURSES STATION, ASKED STAFF FOR A FUCKING ANXIETY PILL AND A FUCKING NERVE PILL. PT AGITATED WITH STAFF, DENIED WANTING ANY HYDROXYZINE CURRENTLY.
--- NOTE | 2022-06-15 17:32 | PC.NURSE ---
REFUSED TO LET STAFF TAKE BLOOD SUGAR AT THIS TIME, 3 STAFF MEMBERS HAVE ATTEMPTED TO TAKE BLOOD SUGAR, PT REFUSES EACH TIME STAFF ASKS. IRRITABLE AFFECT CONTINUES
--- NOTE | 2022-06-15 18:32 | PC.NURSE ---
PATIENT REFUSED VITAL SIGNS AT 1400. RESPIRATIONS 17 CURRENTLY. NO S/S OF DISTRESS.
[2022-06-16] MEDS: clopidogrel 75 mg Tablet PO (09:22)
[2022-06-16] MEDS: isosorbide mononitrate ER 60 mg Tablet PO (09:22)
[2022-06-16] MEDS: cetirizine 10 mg Tablet PO (09:22)
[2022-06-16] MEDS: aspirin 81 mg EC Tablet PO (09:22)
[2022-06-16] MEDS: calcium carb-vit d 600mg/400unit 1 Tablet 1 EACH PO (09:22)
[2022-06-16] MEDS: escitalopram 10 mg Tablet PO (09:23)
[2022-06-16] MEDS: fenofibrate 145 mg Tablet PO (09:23)
[2022-06-16] MEDS: metoprolol tartrate 50 mg Tablet PO ×2 (09:23→21:11)
--- NOTE | 2022-06-16 09:25 | PC.NURSE ---
Pt refused to have a bloodsugar taken this morning, Pt also refused her insulin at med pass this morning. Charge nurse is aware of the pt refusing medications.
[2022-06-16 13:00] LABS: Glucose Point of Care 109 mg/dL (70-110)
[2022-06-16 14:00] VITALS: BP 96/65; PULSE 66; RESP 16; TEMP 36.8; O2SAT 98
[2022-06-16 17:47] LABS: Glucose Point of Care 174 mg/dL (70-110)
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
[2022-06-16] MEDS: insulin lispro 100 unit/1 mL SUBCUT (18:47)
[2022-06-16 19:49] LABS: Glucose Point of Care 306 mg/dL (70-110)
[2022-06-16 20:53] VITALS: BP 113/78; PULSE 70; RESP 16; TEMP 37.1; O2SAT 99
[2022-06-16] MEDS: acetaminophen 325 mg Tablet 650 MG PO (21:11)
[2022-06-16] MEDS: BuSPIRONE 10 mg Tablet PO (21:11)
[2022-06-17] MEDS: isosorbide mononitrate ER 60 mg Tablet PO (09:04)
[2022-06-17] MEDS: fenofibrate 145 mg Tablet PO (09:04)
[2022-06-17] MEDS: cetirizine 10 mg Tablet PO (09:04)
[2022-06-17] MEDS: calcium carb-vit d 600mg/400unit 1 Tablet 1 EACH PO (09:04)
[2022-06-17] MEDS: clopidogrel 75 mg Tablet PO (09:04)
[2022-06-17] MEDS: BuSPIRONE 10 mg Tablet PO ×2 (09:04→17:14)
[2022-06-17] MEDS: aspirin 81 mg EC Tablet PO (09:04)
[2022-06-17] MEDS: escitalopram 10 mg Tablet PO (09:05)
[2022-06-17] MEDS: metoprolol tartrate 50 mg Tablet PO ×2 (09:05→21:17)
[2022-06-17 09:34] LABS: Glucose Point of Care 242 mg/dL (70-110)
[2022-06-17] MEDS: nicotine 21 mg Patch 1 PATCH TRANSDERMA (11:43)
[2022-06-17 12:13] LABS: Glucose Point of Care 196 mg/dL (70-110)
[2022-06-17] MEDS: insulin lispro 100 unit/1 mL SUBCUT ×3 (13:17→22:04)
[2022-06-17 13:49] VITALS: BP 106/71; PULSE 57; RESP 18; TEMP 36.6; O2SAT 99
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
[2022-06-17 17:34] LABS: Glucose Point of Care 176 mg/dL (70-110)
[2022-06-17] MEDS: acetaminophen 325 mg Tablet 650 MG PO (18:22)
[2022-06-17 21:06] VITALS: BP 129/82; PULSE 73; RESP 18; TEMP 37.7; O2SAT 98
[2022-06-17] MEDS: trazodone 50 mg Tablet PO ×2 (21:17→22:21)
[2022-06-17 21:55] LABS: Glucose Point of Care 287 mg/dL (70-110)
[2022-06-18] MEDS: alum-mag-hydroxide-sime 30 mL UDC PO ×2 (01:20→21:16)
[2022-06-18 05:54] VITALS: RESP 16
[2022-06-18 07:52] LABS: Glucose Point of Care 226 mg/dL (70-110)
[2022-06-18] MEDS: acetaminophen 325 mg Tablet 650 MG PO ×2 (09:23→15:03)
[2022-06-18] MEDS: cetirizine 10 mg Tablet PO (09:23)
[2022-06-18] MEDS: fenofibrate 145 mg Tablet PO (09:23)
[2022-06-18] MEDS: calcium carb-vit d 600mg/400unit 1 Tablet 1 EACH PO (09:23)
[2022-06-18] MEDS: clopidogrel 75 mg Tablet PO (09:23)
[2022-06-18] MEDS: aspirin 81 mg EC Tablet PO (09:23)
[2022-06-18] MEDS: isosorbide mononitrate ER 60 mg Tablet PO (09:24)
[2022-06-18] MEDS: BuSPIRONE 10 mg Tablet PO ×2 (09:24→17:21)
[2022-06-18] MEDS: insulin glargine 100 units/1 mL 70 UNIT SUBCUT (09:24)
[2022-06-18] MEDS: escitalopram 10 mg Tablet PO (09:24)
[2022-06-18] MEDS: insulin lispro 100 unit/1 mL SUBCUT ×4 (09:25→20:20)
[2022-06-18] MEDS: metoprolol tartrate 50 mg Tablet PO ×2 (09:26→20:20)
[2022-06-18] MEDS: nicotine 21 mg Patch 1 PATCH TRANSDERMA (09:26)
[2022-06-18 12:15] LABS: Glucose Point of Care 172 mg/dL (70-110)
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
[2022-06-18 14:00] VITALS: BP 91/61; PULSE 72; RESP 18; TEMP 36.9; O2SAT 100
[2022-06-18 16:52] LABS: Glucose Point of Care 193 mg/dL (70-110)
[2022-06-18 20:05] LABS: Glucose Point of Care 222 mg/dL (70-110)
[2022-06-18 20:13] VITALS: BP 148/88; PULSE 73; RESP 16; TEMP 36.9; O2SAT 97
[2022-06-18] MEDS: trazodone 100 mg Tablet 200 MG PO (20:38)
[2022-06-19 05:27] VITALS: RESP 18
[2022-06-19 08:07] LABS: Glucose Point of Care 121 mg/dL (70-110)
[2022-06-19] MEDS: insulin glargine 100 units/1 mL 70 UNIT SUBCUT (08:58)
[2022-06-19] MEDS: aspirin 81 mg EC Tablet PO (08:59)
[2022-06-19] MEDS: cetirizine 10 mg Tablet PO (08:59)
[2022-06-19] MEDS: fenofibrate 145 mg Tablet PO (08:59)
[2022-06-19] MEDS: escitalopram 10 mg Tablet PO (08:59)
[2022-06-19] MEDS: clopidogrel 75 mg Tablet PO (08:59)
[2022-06-19] MEDS: BuSPIRONE 10 mg Tablet PO ×2 (09:00→17:30)
[2022-06-19] MEDS: isosorbide mononitrate ER 60 mg Tablet PO (09:00)
[2022-06-19] MEDS: metoprolol tartrate 50 mg Tablet PO ×2 (09:00→19:52)
[2022-06-19] MEDS: calcium carb-vit d 600mg/400unit 1 Tablet 1 EACH PO (09:00)
[2022-06-19] MEDS: nicotine 21 mg Patch 1 PATCH TRANSDERMA (09:07)
[2022-06-19] MEDS: acetaminophen 325 mg Tablet 650 MG PO ×2 (10:49→19:51)
[2022-06-19 12:22] LABS: Glucose Point of Care 241 mg/dL (70-110)
[2022-06-19] MEDS: insulin lispro 100 unit/1 mL SUBCUT ×3 (12:22→20:00)
[2022-06-19 14:00] VITALS: BP 88/57; PULSE 75; RESP 17; TEMP 36.7; O2SAT 100
[2022-06-19 17:48] LABS: Glucose Point of Care 225 mg/dL (70-110)
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
[2022-06-19] MEDS: alum-mag-hydroxide-sime 30 mL UDC PO (19:51)
[2022-06-19] MEDS: trazodone 100 mg Tablet 200 MG PO (19:52)
[2022-06-19 20:02] LABS: Glucose Point of Care 192 mg/dL (70-110)
[2022-06-19 21:54] VITALS: BP 146/80; PULSE 83; RESP 18; TEMP 37.6; O2SAT 100
[2022-06-20 06:00] VITALS: RESP 16
[2022-06-20 07:56] LABS: Glucose Point of Care 90 mg/dL (70-110)
[2022-06-20] MEDS: insulin glargine 100 units/1 mL 70 UNIT SUBCUT (08:59)
[2022-06-20] MEDS: aspirin 81 mg EC Tablet PO (09:00)
[2022-06-20] MEDS: cetirizine 10 mg Tablet PO (09:00)
[2022-06-20] MEDS: escitalopram 10 mg Tablet PO (09:00)
[2022-06-20] MEDS: isosorbide mononitrate ER 60 mg Tablet PO (09:00)
[2022-06-20] MEDS: calcium carb-vit d 600mg/400unit 1 Tablet 1 EACH PO (09:00)
[2022-06-20] MEDS: acetaminophen 325 mg Tablet 650 MG PO ×2 (09:00→15:10)
[2022-06-20] MEDS: clopidogrel 75 mg Tablet PO (09:01)
[2022-06-20] MEDS: BuSPIRONE 10 mg Tablet PO ×2 (09:01→17:22)
[2022-06-20] MEDS: metoprolol tartrate 50 mg Tablet PO ×2 (09:01→20:02)
[2022-06-20] MEDS: fenofibrate 145 mg Tablet PO (09:01)
[2022-06-20] MEDS: nicotine 21 mg Patch 1 PATCH TRANSDERMA (09:05)
[2022-06-20 11:57] LABS: Glucose Point of Care 169 mg/dL (70-110)
[2022-06-20] MEDS: insulin lispro 100 unit/1 mL SUBCUT ×3 (12:34→20:05)
[2022-06-20 14:00] VITALS: BP 107/71; PULSE 115; RESP 17; TEMP 36.6; O2SAT 100
[2022-06-20 17:04] LABS: Glucose Point of Care 174 mg/dL (70-110)
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
[2022-06-20] MEDS: trazodone 100 mg Tablet 200 MG PO (20:02)
[2022-06-20 20:10] LABS: Glucose Point of Care 191 mg/dL (70-110)
[2022-06-20 20:14] VITALS: BP 132/88; PULSE 78; RESP 16; TEMP 36.9; O2SAT 100
[2022-06-20] MEDS: alum-mag-hydroxide-sime 30 mL UDC PO (21:18)
[2022-06-21 06:00] VITALS: RESP 16
[2022-06-21 08:00] VITALS: PULSE 71; RESP 18; O2SAT 100
[2022-06-21 08:10] LABS: Glucose Point of Care 118 mg/dL (70-110)
[2022-06-21] MEDS: cetirizine 10 mg Tablet PO (08:44)
[2022-06-21] MEDS: escitalopram 10 mg Tablet PO (08:44)
[2022-06-21] MEDS: aspirin 81 mg EC Tablet PO (08:44)
[2022-06-21] MEDS: metoprolol tartrate 50 mg Tablet PO (08:44)
[2022-06-21] MEDS: isosorbide mononitrate ER 60 mg Tablet PO (08:44)
[2022-06-21] MEDS: fenofibrate 145 mg Tablet PO (08:45)
[2022-06-21] MEDS: calcium carb-vit d 600mg/400unit 1 Tablet 1 EACH PO (08:45)
[2022-06-21] MEDS: clopidogrel 75 mg Tablet PO (08:45)
[2022-06-21] MEDS: BuSPIRONE 10 mg Tablet PO ×2 (08:45→17:19)
[2022-06-21] MEDS: nicotine 21 mg Patch 1 PATCH TRANSDERMA (08:56)
[2022-06-21] MEDS: acetaminophen 325 mg Tablet 650 MG PO (09:47)
--- NOTE | 2022-06-21 11:45 | DCPLANNER ---
Imm was printed and rights explained. Pt given copy and placed in her file.
[2022-06-21 12:46] LABS: Glucose Point of Care 237 mg/dL (70-110)
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
[2022-06-21 13:14] VITALS: RESP 16
[2022-06-21] MEDS: insulin lispro 100 unit/1 mL SUBCUT (13:30)
[2022-06-21] MEDS: insulin glargine 100 units/1 mL 70 UNIT SUBCUT (13:30)
[2022-06-21 14:00] VITALS: BP 90/63; PULSE 71; RESP 18; TEMP 36.6; O2SAT 100
== END 2022-06-21 17:22 | disposition home or self-care (01) | DRG 885 ==
LOC: ER 09:34 → NP 16:18
PROVIDERS: Admitting Provider Psychiatry & Neurology Psychiatry; Emergency Provider Physician Assistant; PCP Nurse Practitioner; Visit Provider Psychiatry & Neurology Psychiatry
DX: F33.9 Major depressive disorder, recurrent, unspecified (principal); F15.20 Other stimulant dependence, uncomplicated; R45.851 Suicidal ideations; F43.10 Post-traumatic stress disorder, unspecified; E11.65 Type 2 diabetes mellitus with hyperglycemia; J44.9 Chronic obstructive pulmonary disease, unspecified; I10 Essential (primary) hypertension; F17.210 Nicotine dependence, cigarettes, uncomplicated; Z79.4 Long term (current) use of insulin; Z95.5 Presence of coronary angioplasty implant and graft; Z65.3 Problems related to other legal circumstances; Z81.8 Family history of other mental and behavioral disorders; Z62.810 Personal history of physical and sexual abuse in childhood
CPT/HCPCS: 36415; 36416; 71045; 80053; 80306; 80307; 81001; 82962; 83880; 84484; 85025; 85378; 93005; 94640; 96372; 97150; 97165; 99238; 99285; J0696; J1815; J7613; J7644; Q0162

== ENCOUNTER → 2022-07-04 14:04 | Outpatient (BNVA) | payer MEDICARE, MEDICAID, SELFPAY | PROVIDERS: PCP Nurse Practitioner; Visit Provider Nurse Practitioner | DX: E11.65 Type 2 diabetes mellitus with hyperglycemia (principal); Z79.4 Long term (current) use of insulin; J44.9 Chronic obstructive pulmonary disease, unspecified | CPT/HCPCS: 80053; 83036 ==

== ENCOUNTER 2022-08-24 13:04 | Inpatient (IN) | payer MEDICARE, SELFPAY ==
--- NOTE | 2022-08-24 13:07 | ED.C_ITS ---
I was one of the emergency department physicians on duty when this patient was seen and evaluated by the advanced nurse practitioner. This case was briefly reviewed with me regarding management decisions. I did not personally interview, evaluate or otherwise participate in the care of this patient other than the brief interview and writing admitting orders per departmental protocol. The patient is on a 96-hour hold because of psychotic behavior and has been admitted to the psychiatric service at this facility. HPI - Psych General: Chief Complaint: Psychiatric Symptoms Stated Complaint: 96 HOUR HOLD Time Seen by Provider: 08/24/22 13:07 Source: patient Mode of arrival: EMS Limitations: no limitations History of Present Illness: Patient is a 57-year-old female who presents to ED today on a 96-hour hold. According to hold paperwork patient made statements that she no longer wanted to be alive and would kill somebody if she got locked up. She reportedly sent this after refusing to attend court this morning. I am not sure what patient's court hearing was for. She was in halfway back in May/Jun. Upon my examination patient tells me that she does want to and states there is not a doubt in my mind that I will do it eventually . Patient tells me she also feels homicidal. She states she does experience auditory and visual hallucinations stating that she had to move out of her [place] apartment because people were looking in her windows. complaint: suicidal ideation Onset (ago): day(s) Duration: constant History of same: Yes Associated psychiatric symptoms: depression, suicidal ideation, homicidal ideation, auditory hallucinations and visual hallucinations Associated symptoms: Reports auditory hallucinations, visual hallucinations, depression, homicidal ideation and suicidal ideation Treatments prior to arrival: placed on mental health hold If self harm: admits thoughts of self harm Review of Systems Const: Denies: fever(s) or chills Card: Denies: chest pain, palpitations, lightheadedness or syncope Resp: Denies: dyspnea GI: Denies: abdominal pain, nausea, vomiting or diarrhea Skin/Breast: Denies: rash Neuro: Denies: headache(s) Psych: Reports: depression, hopelessness, visual hallucinations, auditory hallucinations, suicidal ideation and homicidal ideation [facility] ED PFSH: Medical History Asthma CAD (coronary artery disease) DDD (degenerative disc disease), lumbar Diabetes mellitus with hyperglycemia, with long-term current use of insulin Dyslipidemia Dyspareunia GERD (gastroesophageal reflux disease) Hypertension Nicotine dependence, cigarettes, uncomplicated Other stressful life events affecting family and household Psychiatric care Type 2 diabetes mellitus Surgical History H/O heart artery stent (~2018) 2 stents placed History of appendectomy History of cholecystectomy (02/13/14) Laparoscopic. Performed by Dr. Wahl at [facility] [place] History of tubal ligation (~1993) . Performed by Dr. Jesus at [facility] [place]. Hx of wisdom tooth extraction Family History Family/Other Breast cancer aunt and cousin Grandmother Diabetes Hypertension maternal Heart disease maternal Hypercholesteremia maternal Mother Heart disease Hypercholesteremia Social History Smoking and tobacco status: current every day smoker Second hand smoke exposure: No Smoking risk assessment/counseling performed?: Yes Alcohol intake: current Desire information about alcohol rehabilitation?: No Counseling given: Yes Desire information about substance/drug rehabilitation?: No Counseling given: Yes Adopted: No Caregiver/support person: Yes Lives independently: No Household members: family Housing: House Marital status: Single Number of children: 3 service: No Current occupational status: unemployed Current gender identity: Female Physical Exam Const: COMMON NORMALS: no acute distress, patient oriented x3, alert and well nourished GENERAL APPEARANCE: cooperative and well kempt Resp: COMMON NORMALS: normal respiratory effort and clear to auscultation bilaterally AUSCULTATION: clear to auscultation bilaterally Cardio: COMMON NORMALS: regular rate and regular rhythm RATE: regular rate RHYTHM: regular rhythm Neuro: ANDI COMA SCALE: document GCS findings Andi coma scale eye opening: Spontaneous Andi coma scale verbal response: Orientated Andi coma scale motor response: Obey commands [place] coma scale total score: 15 COMMON NORMALS: patient oriented x3 SENSORIUM/ORIENTATION: Yes alert Psych: COMMON NORMALS: mental status grossly normal, Normal thought process present, cooperative, normal affect, speech normal and activity/motor behavior normal APPEARANCE: Yes grossly normal and Yes well kempt ATTITUDE: Yes agitated ACTIVITY/MOTOR BEHAVIOR: No psychomotor agitation and Yes Avoids eye contact (attititude/behavior) SPEECH: Yes normal speech MOOD & AFFECT: Yes euthymic mood THOUGHT PROCESS: Normal thought process present THOUGHT CONTENT: Yes Suicidality present MEMORY/COGNITION: Yes memory grossly intact and Yes cognition grossly intact INSIGHT: Fair insight present (Psych) JUDGEMENT: Fair judgement present (Psych) Skin: COMMON NORMALS: no rashes or lesions noted GENERAL SKIN EXAM: no rashes or lesions noted Course Consultations: Consultation #1: Dr. Quiles-accepts admission to NPU Vital Signs: Vital signs: Vital Signs Temperature 98.9 F 08/24/22 13:18 Pulse Rate 97 08/24/22 13:18 Respiratory Rate 16 08/24/22 13:18 Blood Pressure 152/91 08/24/22 13:18 Pulse Oximetry 95 08/24/22 13:18 Oxygen Delivery Me thod Room Air 08/24/22 13:18 MDM - Psych Medical Decision Making Patient will be an admit to NPU to Dr. Quiles on a 96-hour hold for treatment and evaluation of depression, suicidal ideations, homicidal ideations, and hallucinations. Lab Data 08/24/22 14:21 08/24/22 14:21 Laboratory Results WBC 8.2 10^3/uL (4.0-10.0) 08/24/22 14:21 RBC 4.56 10^6/uL (4.1-5.3) 08/24/22 14:21 Hgb 13.1 g/dL (11.5-15.3) 08/24/22 14:21 Hct 38.9 % (37.0-47.0) 08/24/22 14:21 MCV 85.3 fl (81-99) 08/24/22 14:21 MCH 28.7 pg (28.0-34.0) 08/24/22 14:21 MCHC 33.7 g/dL (30.0-36.0) 08/24/22 14:21 RDW 13.2 % (12.1-15.1) 08/24/22 14:21 Plt Count 370 10^3/cmm (130-400) 08/24/22 14:21 MPV 9.4 fL (7.4-10.4) 08/24/22 14:21 Neut % (Auto) 64.3 % 08/24/22 14:21 Lymph % (Auto) 29.9 % 08/24/22 14:21 [place] % (Auto) 4.8 % 08/24/22 14:21 Eos % (Auto) 0.4 % 08/24/22 14:21 Baso % (Auto) 0.2 % 08/24/22 14:21 Neut # (Auto) 5.28 10^3/uL (1.8-7.7) 08/24/22 14:21 Lymph # (Auto) 2.5 10^3/uL (0.8-4.8) 08/24/22 14:21 [place] # (Auto) 0.4 10^3/uL (0.2-0.9) 08/24/22 14:21 Eos # (Auto) 0.0 10^3/uL (0.0-0.8) 08/24/22 14:21 Baso # (Auto) 0.0 10^3/uL (0.0-0.1) 08/24/22 14:21 Nucleated RBC % (auto) 0 % 08/24/22 14: Nucleated RBCs # 0.0 /100WBC 08/24/22 14:21 Sodium 137 mmol/L (136-145) 08/24/22 14:21 Potassium 3.9 mmol/L (3.5-5.1) 08/24/22 14:21 Chloride 101 mmol/L (98-107) 08/24/22 14:21 Carbon Dioxide 24 mmol/L (22-29) 08/24/22 14:21 Anion Gap 15.9 (5-19) 08/24/22 14:21 BUN 10 mg/dL (6-20) 08/24/22 14:21 Creatinine 1.1 mg/dL (0.5-0.9) H 08/24/22 14:21 GFR Calculation 51.2 mL/min (90-130) L 08/24/22 14:21 Glucose 187 mg/dL (65-115) H 08/24/22 14:21 Calculated Osmolality 288 mOsm/kg (285-295) 08/24/22 14:21 Calcium 9.7 mg/dL (8.5-10.5) 08/24/22 14:21 Total Bilirubin 0.3 mg/dL (0.15-1.2) 08/24/22 14:21 AST 14 U/L (0-32) 08/24/22 14:21 ALT 12 U/L (0-33) 08/24/22 14:21 Alkaline Phosphatase 54 U/L (35-105) 08/24/22 14:21 Total Protein 7.5 g/dL (6.6-8.7) 08/24/22 14:21 Albumin 4.1 g/dL (3.5-5.2) 08/24/22 14:21 Globulin 3.4 g/dL (1.3-4.6) 08/24/22 14:21 Salicylates < 0.3 mg/dL (3-10) L 08/24/22 14:21 Acetaminophen < 5.0 ug/mL (10-30) L 08/24/22 14:21 Ethyl Alcohol < 10 mg/dL (0-10) 08/24/22 14:21 Discharge Plan Discharge Patient Disposition: Admitted As Inpatient Clinical Impression: Involuntary commitment, Suicidal ideation, Hallucinations, Homicidal ideation Condition: Stable Coding Level of Care Code ED Market President for Abida Wharton
[2022-08-24 13:18] VITALS: BP 152/91; PULSE 97; RESP 16; TEMP 37.2; O2SAT 95
[2022-08-24 14:37] LABS: Basophils % 0.2 %; Eosinophils % 0.4 %; Hematocrit 38.9 % (37.0-47.0); Hemoglobin 13.1 g/dL (11.5-15.3); Lymphocytes # 2.5 10^3/uL (0.8-4.8); Lymphocytes % 29.9 %; Mean Corpuscular HGB Conc 33.7 g/dL (30.0-36.0); Mean Corpuscular Hemoglobin 28.7 pg (28.0-34.0); Mean Corpuscular Volume 85.3 fl (81-99); Mean Platelet Volume 9.4 fL (7.4-10.4); Monocytes # 0.4 10^3/uL (0.2-0.9); Monocytes % 4.8 %; Neutrophils # 5.28 10^3/uL (1.8-7.7); Neutrophils % 64.3 %; Nucleated Red Blood Cells % 0 %; Platelet Count 370 10^3/cmm (130-400); Red Blood Count 4.56 10^6/uL (4.1-5.3); Red Cell Distribution Width 13.2 % (12.1-15.1); White Blood Count 8.2 10^3/uL (4.0-10.0)
[2022-08-24 15:04] LABS: Alanine Aminotransferase 12 U/L (0-33); Albumin Level 4.1 g/dL (3.5-5.2); Alkaline Phosphatase 54 U/L (35-105); Anion Gap 15.9 (5-19); Aspartate Amino Transferase 14 U/L (0-32); Blood Urea Nitrogen 10 mg/dL (6-20); Calcium 9.7 mg/dL (8.5-10.5); Carbon Dioxide 24 mmol/L (22-29); Chloride 101 mmol/L (98-107); Globulin 3.4 g/dL (1.3-4.6); Glomerular Filtration Rate 51.2 mL/min (90-130); Glucose 187 mg/dL (65-115); Osmolality Calculated 288 mOsm/kg (285-295); Potassium 3.9 mmol/L (3.5-5.1); Sodium 137 mmol/L (136-145); Total Bilirubin 0.3 mg/dL (0.15-1.2); Total Protein 7.5 g/dL (6.6-8.7)
[2022-08-24 15:08] LABS: Acetaminophen < 5.0 ug/mL (10-30); Alcohol Level < 10 mg/dL (0-10); Salicylate < 0.3 mg/dL (3-10)
[2022-08-24 15:39] LABS: Amphetamines Screen Urine Negative (Negative); Barbiturates Screen Urine Negative (Negative); Benzodiazepines Screen Urine Negative (Negative); Cocaine Screen Urine Negative (Negative); Opiate Screen Urine Negative (Negative); PCP Screen Urine Negative (Negative); THC Screen Urine Negative (Negative)
[2022-08-24 22:00] VITALS: RESP 16
[2022-08-25 06:00] VITALS: RESP 17
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
--- NOTE | 2022-08-25 09:13 | PC.OT ---
OT EVALUATION ORDERS RECEIVED. PER NURSING PATIENT IS HOMICIDAL. REQUEST HOLD AT THIS TIME
[2022-08-25 14:00] VITALS: RESP 18
--- NOTE | 2022-08-25 17:46 | PC.NURSE ---
Pt refused dinner tonight. Nurse encouraged pt to please eat some dinner, pt stated get out of my room and quit asking me fucking questions!!
[2022-08-26 06:00] VITALS: RESP 16
--- NOTE | 2022-08-26 09:05 | PC.NURSE ---
Medication Refusal- Requested patient let us take her blood glucose levels this morning, but she refused. Therefore we could not determine how much insulin to give her. Patient also refused all other medications. She yelled, I'm not taking anything! All I'll take is something for a yeast infection or a UTI! Patient then covered her head with her blanket and refused to conversate with the nurse about the importance of her medications.
--- NOTE | 2022-08-26 09:12 | PC.OT ---
OT EVALUATION HELD THIS DATE PER NURSING REQUEST DUE TO AGITATION.
--- NOTE | 2022-08-26 13:13 | PC.NURSE ---
Patient continues to refuse medications and blood glucose testing, so unable to evaluate how much insulin to administer. Patient stated she wouldn't take the insulin anyways. This RN attempted to educate the patient on the importance of controlling blood sugar levels, but she would not respond to this RN. Patient did agree to urinating in a cup to have a culture done to determine if she had a UTI. COLLECTION TELLER reported patient has started to eat and drink more.
[2022-08-26 13:17] LABS: Basophils % 0.5 %; Eosinophils # 0.1 10^3/uL (0.0-0.8); Eosinophils % 0.7 %; Hematocrit 45.4 % (37.0-47.0); Hemoglobin 15.3 g/dL (11.5-15.3); Lymphocytes % 35.9 %; Mean Corpuscular HGB Conc 33.7 g/dL (30.0-36.0); Mean Corpuscular Hemoglobin 28.8 pg (28.0-34.0); Mean Corpuscular Volume 85.5 fl (81-99); Mean Platelet Volume 9.2 fL (7.4-10.4); Monocytes # 0.5 10^3/uL (0.2-0.9); Monocytes % 6.2 %; Neutrophils # 4.73 10^3/uL (1.8-7.7); Neutrophils % 56.5 %; Nucleated Red Blood Cells % 0 %; Platelet Count 424 10^3/cmm (130-400); Red Blood Count 5.31 10^6/uL (4.1-5.3); Red Cell Distribution Width 13.2 % (12.1-15.1); White Blood Count 8.4 10^3/uL (4.0-10.0)
[2022-08-26 13:38] LABS: Anion Gap 22.9 (5-19); Blood Urea Nitrogen 20 mg/dL (6-20); Calcium 9.8 mg/dL (8.5-10.5); Carbon Dioxide 19 mmol/L (22-29); Chloride 100 mmol/L (98-107); Glomerular Filtration Rate 64.5 mL/min (90-130); Glucose 152 mg/dL (65-115); Osmolality Calculated 292 mOsm/kg (285-295); Potassium 3.9 mmol/L (3.5-5.1); Sodium 138 mmol/L (136-145)
[2022-08-26 14:00] VITALS: BP 155/89; PULSE 120; RESP 18; TEMP 36.9; O2SAT 96
[2022-08-26] MEDS: BuSPIRONE 10 mg Tablet PO ×2 (15:03→21:23)
[2022-08-26] MEDS: acetaminophen 325 mg Tablet 650 MG PO (15:03)
--- NOTE | 2022-08-26 15:45 | P.NPUHP_ITS ---
Providers/Chief Complaint Admitting Physician: Fei Quiles MD Primary Care Provider: NIKHIL Morales Chief Complaint: 96 HOUR HOLD HPI NPU History of Present Illness Jaida Thorpe is a 57 year old female with history of methamphetamine abuse, psychotic disorder secondary to substance use along with depression admitted with suicidal ideation with a plan to not eat or drink while stopping all of her medications including her medications for treatment of diabetes. She continues to refuse to allow the team to check her blood sugar. She has been placed on strict in intake and outtake as she had not been eating or drinking here on the unit. She continues to appear resistant stating that I am not going to do anything that anyone tells me. She reports that she wishes to take methamphetamines and reports being upset that her daughter was preventing her from using meth. She continued to not shower nor brush her teeth with no co mpliance noted on the unit. She had presented herself naked on the unit last night and required as needed medications due to aggression and agitation. Meds NPU Home Medications Medication Instructions Recorded Confirmed Last Taken Type aspirin 81 mg capsule 81 mg PO DAILY ##0 08/07/20 08/24/22 08/08/20 12:00 History omeprazole 20 mg capsule,delayed 20 mg PO DAILY 02/01/21 08/24/22 06/21/21 19:30 History release calcium carbonate 600 mg-vitamin 1 tab PO DAILY 30 days #30 tabs 06/21/22 08/24/22 Unknown Rx D3 10 mcg (400 unit) tablet cetirizine 10 mg tablet 10 mg PO DAILY 30 days #30 tabs 06/21/22 08/24/22 Unknown Rx clopidogrel 75 mg tablet 75 mg PO DAILY 30 days #30 tabs 06/21/22 08/24/22 Unkn own Rx escitalopram oxalate 10 mg tablet 10 mg PO DAILY 30 days #30 tabs 06/21/22 08/24/22 Unknown Rx fenofibrate nanocrystallized 145 145 mg PO DAILY 30 days #30 tabs 06/21/22 08/24/22 Unknown Rx mg tablet insulin detemir U-100 100 unit/mL See Rx Instructions SUBCUT DAILY 06/21/22 08/24/22 Unknown Rx (3 mL) subcutaneous pen (Levemir #21 mL FlexTouch U-100 Insulin) isosorbide mononitrate 60 mg 60 mg PO DAILY 30 days #30 tabs 06/21/22 08/24/22 Unknown Rx tablet,extended release 24 hr metoprolol tartrate 50 mg tablet 50 mg PO BID@0900,2100 30 days #60 06/21/22 Unknown Rx tabs trazodone 100 mg tablet 200 mg PO BEDTIME 30 days #60 tabs 06/21/22 08/24/22 Unknown Rx buspirone 10 mg tablet 10 mg PO TID 30 days #90 tabs 06/30/22 08/24/22 Unknown Rx insulin aspart U-100 100 unit/mL See Rx Instructions SUBCUT TID #15 07/04/22 08/24/22 Unknown Rx (3 mL) subcutaneous pen (Novolog mL FlexPen U-100 Insulin aspart) tiotropium bromide 18 mcg capsule 1 cap inhalation DAILY #30 07/04/22 08/24/22 Unknown Rx with inhalation device (Spiriva inhalations with HandiHaler) albuterol sulfate 90 mcg/actuation 2 puff inhalation QID PRN 08/24/22 08/24/22 Unknown History aerosol inhaler (Ventolin HFA) Shortness Of Breath Allergies Allergy/AdvReac Type Severity Reaction Status Date / Time pantoprazole [From Protonix] Allergy Severe ADR-Vomitin Verified 08/24/22 13:28 g duloxetine [From Cymbalta] Allergy Unknown Unknown Verified 08/24/22 13:28 paroxetine [From Paxil] AdvReac Mild ADR-Shakine Verified 08/24/22 13:28 ss bupropion [From Wellbutrin] AdvReac ADR-Vomitin Verified 08/24/22 13:28 g metformin AdvReac ADR-Diarrhe Verified 08/24/22 13:28 a PFSH NPU PFSH: Medical History Asthma CAD (coronary artery disease) DDD (degenerative disc disease), lumbar Diabetes mellitus with hyperglycemia, with long-term current use of insulin Dyslipidemia Dyspareunia GERD (gastroesophageal reflux disease) Hypertension Nicotine dependence, cigarettes, uncomplicated Other stressful life events affecting family and household Psychiatric care Type 2 diabetes mellitus Surgical History H/O heart artery stent (~2019) 2 stents placed History of appendectomy History of cholecystectomy (02/13/14) Laparoscopic. Performed by Dr. Wahl at [facility] [place] History of tubal ligation (~1993) . Performed by Dr. Jesus at [facility]. Hx of wisdom tooth extraction Family History Family/Other Breast cancer aunt and cousin Grandmother Diabetes Hypertension maternal Heart disease maternal Hypercholesteremia maternal Mother Heart disease Hypercholesteremia Social History Smoking and tobacco status: current every day smoker Second hand smoke exposure: No Smoking risk assessment/counseling performed?: Yes Alcohol intake: current Desire information about alcohol rehabilitation?: No Counseling given: Yes Desire information about substance/drug rehabilitation?: No Counseling given: Yes Adopted: No Caregiver/support person: Yes Lives independently: No Household members: family Housing: House Marital status: Single Number of children: 3 service: No Current occupational status: unemployed Current gender identity: Female Mental Status Exam MSE Comments: She is a belligerent white woman who was lying in bed hidden under the covers with no eye contact. She appeared much older than her stated age. She was cachectic. Her gait was not tested. Her hygiene is poor. There was no clear evidence of any abnormal involuntary motor movements tics or tremors appreciated. Her mood was described as horrible. Her affect was mood congruent and dysphoric. She endorsed suicidal ideation with a plan to starve herself and not take her medications. She also endorsed homicidal thoughts towards anyone that touched me. There did appear to be significant paranoia. She did not appear to be responding to internal stimuli. There was no clear evidence of delusional thinking. Her insight is feeble. Her judgment is poor. Her impulse control appeared limited. Her recent and remote memory were grossly intact. Vitals/I&O/Wt Last Vital Signs Temp 98.5 F 08/26/22 14:00 Pulse 120 H 08/26/22 14:00 Resp 18 08/26/22 14:00 BP 155/89 08/26/22 14:00 Pulse Ox 96 08/26/22 14:00 O2 Del Method Room Air 08/25/22 08:39 Data NPU 08/26/22 13:08 08/26/22 13:08 A&P Assessment and plan (1) Psychotic disorder: (2) PTSD (post-traumatic stress disorder): (3) Major depressive disorder, recurrent: (4) Methamphetamine use disorder, severe: (5) Diabetes mellitus with hyperglycemia, with long-term current use of insulin: (6) H/O heart artery stent: (7) Suicidal ideation: (8) Chest pain: (9) Nicotine dependence, cigarettes, uncomplicated: Plan This is a 57-year-old white female with a long history of mental health and addiction issues who presents with suicidal and homicidal ideation after being informed that she would be placed in custodial for actions that were likely substance abuse related. 1.? Continue current medications though patient is refusing all her medications. 21 day hold filed with possibility of forced medication and treatment. 2.? Continue every 15 minute checks for safety. 3.? Encourage individual, group and milieu therapies. 4. Encourage sober living treatment after discharge at the highest level of care to which she is willing to commit. Involuntary Hold Information 96 Hour Hold: 96 Hour Involuntary Admission: Yes 96 Hour Hold Ending Date: 08/30/22 96 Hour Hold Ending Time: 15:12 Attestations NPU Medical Necessity Statement*: Inpatient psychiatric hospitalization is medically necessary and the clinically appropriate intervention at this time. We will monitor medications and make changes as indicated. Her likely length of stay 5-10 days. Coding Level of Care Code Acute Code for [facility] Fwd Diagnoses Psychotic disorder F29 PTSD (post-traumatic stress disorder) F43.10 Major depressive disorder, recurrent F33.9 Methamphetamine use disorder, severe F15.20 Diabetes mellitus with hyperglycemia, with long-term current use of insulin E11.65; Z79.4 H/O heart artery stent Z95.5 Suicidal ideation R45.851 Chest pain R07.9 Nicotine dependence, cigarettes, uncomplicated F17.210
--- NOTE | 2022-08-26 18:53 | PC.NURSE ---
Patient refusing blood glucose readings, therefore this RN is unable to calculate how much insulin to administer patient per sliding scale.
[2022-08-26 19:38] LABS: Glucose Point of Care 164 mg/dL (70-110)
[2022-08-26] MEDS: insulin lispro 100 unit/1 mL SUBCUT (21:20)
[2022-08-26] MEDS: hyDROXYzine 25 mg Capsule 50 MG PO (21:21)
[2022-08-26] MEDS: trazodone 100 mg Tablet 200 MG PO (21:22)
[2022-08-26] MEDS: metoprolol tartrate 50 mg Tablet PO (21:22)
[2022-08-26 22:00] VITALS: BP 148/101; PULSE 121; RESP 16; TEMP 36.7; O2SAT 98
[2022-08-26] MEDS: ondansetron 4 MG Tablet PO (23:20)
[2022-08-27 06:00] VITALS: BP 116/63; PULSE 105; RESP 16; TEMP 36.6; O2SAT 98
[2022-08-27 06:43] LABS: Glucose Point of Care 208 mg/dL (70-110)
[2022-08-27] MEDS: calcium carbonate 500 mg Chew Tablet 1000 MG PO ×2 (07:06→15:17)
[2022-08-27] MEDS: isosorbide mononitrate ER 60 mg Tablet PO (08:55)
[2022-08-27] MEDS: escitalopram 10 mg Tablet PO (08:55)
[2022-08-27] MEDS: metoprolol tartrate 50 mg Tablet PO (08:55)
[2022-08-27] MEDS: aspirin 81 mg EC Tablet PO (08:55)
[2022-08-27] MEDS: BuSPIRONE 10 mg Tablet PO ×3 (08:55→22:33)
[2022-08-27] MEDS: fenofibrate 145 mg Tablet PO (08:55)
[2022-08-27] MEDS: clopidogrel 75 mg Tablet PO (08:55)
[2022-08-27] MEDS: calcium carb-vit d 600mg/400unit 1 Tablet 1 EACH PO (08:55)
[2022-08-27 12:25] LABS: Glucose Point of Care 304 mg/dL (70-110)
[2022-08-27] MEDS: insulin lispro 100 unit/1 mL SUBCUT ×3 (12:28→22:36)
[2022-08-27] MEDS: nicotine 21 mg Patch 1 PATCH TRANSDERMA (12:45)
[2022-08-27 14:00] VITALS: BP 104/70; PULSE 95; RESP 20; TEMP 36.8; O2SAT 98
[2022-08-27 17:45] LABS: Glucose Point of Care 209 mg/dL (70-110)
--- NOTE | 2022-08-27 18:13 | W.PM.NPUPNS ---
Subjective NPU Subjective: 57 year old white female with methamphetamine dependence admitted with suicidal ideation. She continued to report suicidal thoughts but was more compliant on the unit. She had been isolating herself less and had been taking some of her medication instead of refusing. She had required prn medication yesterday for aggression. She reports continuing to feel depressed but was able to allow team to check blood sugar. She reports continued depression and reports no sleep disturbance yesterday. Mental Status Exam MSE Comments: She is an irritable white female who was seen outside her room today with fleeting eye contact. She appeared much older than her stated age. She was thin and her gait was normal Her hygiene is improved. . There was no clear evidence of any abnormal involuntary motor movements tics or tremors appreciated. Her mood was described as okay. Her affect was brighter. She continued to endorse suicidal ideation with a plan to starve herself and not take her medications. She also endorsed no homicidal thoughts. There did appear to be significant paranoia. She did not appear to be responding to internal stimuli. There was no clear evidence of delusional thinking. Her insight is feeble. Her judgment is poor. Her impulse control appeared limited. Her recent and remote memory were grossly intact. Vitals/I&O/Wt Last Vital Signs Temp 98.2 F 08/27/22 14:00 Pulse 95 08/27/22 14:00 Resp 20 H 08/27/22 14:00 BP 104/70 08/27/22 14:00 Pulse Ox 98 08/27/22 14:00 O2 Del Method Room Air 08/27/22 06:00 Data NPU 08/26/22 13:08 08/26/22 13:08 Micro: Microbiology 08/26/22 12:37 Urine Culture - Preliminary Urine,Clean Catch Microbiology 08/26/22 12:37 Urine,Clean Catch Urine Culture - Preliminary A&P Assessment and plan (1) Psychotic disorder: (2) PTSD (post-traumatic stress disorder): (3) Major depressive disorder, recurrent: (4) Methamphetamine use disorder, severe: (5) Diabetes mellitus with hyperglycemia, with long-term current use of insulin: (6) H/O heart artery stent: (7) Suicidal ideation: (8) Chest pain: (9) Nicotine dependence, cigarettes, uncomplicated: Plan This is a 57-year-old white female with a long history of mental health and addiction issues who presents with suicidal and homicidal ideation after being informed that she would be placed in correction for actions that were likely substance abuse related. 1.? Continue current medications though patient is refusing all her medications. 21 day hold filed with possibility of forced medication and treatment. 2.? Continue every 15 minute checks for safety. 3.? Encourage individual, group and milieu therapies. 4. Encourage sober living treatment after discharge at the highest level of care to which she is willing to commit. Involuntary Hold Information 96 Hour Hold: 96 Hour Involuntary Admission: Yes 96 Hour Hold Ending Date: 08/30/22 96 Hour Hold Ending Time: 15:12 Attestations NPU Medical Necessity Statement*: Inpatient psychiatric hospitalization is medically necessary and the clinically appropriate intervention at this time. We will monitor medications and make changes as indicated. Her likely length of stay 5-10 days. Coding Level of Care Code Acute Code for [facility] Fwd Diagnoses Psychotic disorder F29 PTSD (post-traumatic stress disorder) F43.10 Major depressive disorder, recurrent F33.9 Methamphetamine use disorder, severe F15.20 Diabetes mellitus with hyperglycemia, with long-term current use of insulin E11.65; Z79.4 H/O heart artery stent Z95.5 Suicidal ideation R45.851 Chest pain R07.9 Nicotine dependence, cigarettes, uncomplicated F17.210
[2022-08-27 20:56] LABS: Glucose Point of Care 250 mg/dL (70-110)
[2022-08-27 22:00] VITALS: BP 123/79; PULSE 112; RESP 16; TEMP 36.6; O2SAT 96
[2022-08-27] MEDS: diphenhydrAMINE 50 mg Capsule PO (22:33)
[2022-08-27] MEDS: trazodone 100 mg Tablet 200 MG PO (22:33)
[2022-08-27] MEDS: nystatin powder 15 gm Btl 1 APPLIC TOPICAL (22:35)
[2022-08-28 06:00] VITALS: RESP 18
[2022-08-28 07:59] LABS: Glucose Point of Care 203 mg/dL (70-110)
[2022-08-28] MEDS: insulin lispro 100 unit/1 mL SUBCUT ×4 (08:13→21:48)
[2022-08-28] MEDS: acetaminophen 325 mg Tablet 650 MG PO (09:11)
[2022-08-28] MEDS: nicotine 21 mg Patch 1 PATCH TRANSDERMA (09:12)
[2022-08-28] MEDS: isosorbide mononitrate ER 60 mg Tablet PO (09:13)
[2022-08-28] MEDS: cetirizine 10 mg Tablet PO (09:13)
[2022-08-28] MEDS: metoprolol tartrate 50 mg Tablet PO ×2 (09:13→21:50)
[2022-08-28] MEDS: fenofibrate 145 mg Tablet PO (09:13)
[2022-08-28] MEDS: clopidogrel 75 mg Tablet PO (09:13)
[2022-08-28] MEDS: escitalopram 10 mg Tablet PO (09:13)
[2022-08-28] MEDS: BuSPIRONE 10 mg Tablet PO ×3 (09:13→21:50)
[2022-08-28] MEDS: aspirin 81 mg EC Tablet PO (09:13)
[2022-08-28] MEDS: calcium carb-vit d 600mg/400unit 1 Tablet 1 EACH PO (09:13)
[2022-08-28] MEDS: nystatin powder 15 gm Btl 1 APPLIC TOPICAL (09:14)
--- NOTE | 2022-08-28 09:14 | W.PM.NPUPNS ---
Subjective NPU Subjective: 57 year old white female with methamphetamine dependence admitted with suicidal ideation. Patient had admitted today that she was feeling much better. She had not reported methamphetamine use and several months. She states that she was truly remorseful for having caused the of her dog while under the influence of methamphetamine. She had stated that she had not been in her right mind and had been having unusual thoughts that were due to her methamphetamine use. She had reported that she was concerned about her potential legal consequences. She had been pleasant and compliant on the milieu and had been taking her medications and allowing staff to check her blood sugars. She had not endorsed any recent thoughts about wanting to passively kill herself through noncompliance. She had reported frustration with her her trazodone had been helpful for sleep but tended to make her extremely groggy in the morning. Patient had endorsed a long history of trauma and abuse and stated that she frequently felt uncomfortable being around people and stated that she had chronically felt as if other people around her may cause harm. She had reported no treatment for PTSD in the recent past. She had continued to report nightmares flashbacks and depressed mood for several years. Mental Status Exam MSE Comments: She was is a pleasant white female who was seen in her room today. She appeared much older than her stated age. She was thin and her gait was normal Her hygiene is improved. . There was no clear evidence of any abnormal involuntary motor movements tics or tremors appreciated. Her mood was described as better.. Her affect was brighter. She denied any homicidal or suicidal ideation. She did report some paranoia but no clear evidence of delusional thinking today. She did not appear to be responding to internal stimuli. Her insight is feeble. Her judgment is poor. Her impulse control appeared limited. Her recent and remote memory were grossly intact. Vitals/I&O/Wt Last Vital Signs Temp 97.9 F 08/27/22 22:00 Pulse 112 H 08/27/22 22:00 Resp 18 08/28/22 06:00 BP 123/79 08/27/22 22:00 Pulse Ox 96 08/27/22 22:00 O2 Del Method Room Air 08/27/22 06:00 Weight last 48 hrs Weight 70.307 kg Data NPU 08/26/22 13:08 08/26/22 13:08 Micro: Microbiology 08/26/22 12:37 Urine Culture - Final Urine,Clean Catch Microbiology 08/26/22 12:37 Urine,Clean Catch Urine Culture - Final A&P Assessment and plan (1) Psychotic disorder: (2) PTSD (post-traumatic stress disorder): (3) Major depressive disorder, recurrent: (4) Methamphetamine use disorder, severe: (5) Diabetes mellitus with hyperglycemia, with long-term current use of insulin: (6) H/O heart artery stent: (7) Suicidal ideation: (8) Chest pain: (9) Nicotine dependence, cigarettes, uncomplicated: Plan This is a 57-year-old white female with a long history of mental health and addiction issues who presents with suicidal and homicidal ideation after being informed that she would be placed in assisted for actions that were likely substance abuse related. 1.? Patient appears to be doing much better. We will reduce trazodone to 175 mg at night and see if it improves her sleep without causing excess sedation. We will increase Lexapro to 20 mg daily as well today. 2.? Continue every 15 minute checks for safety. 3.? Encourage individual, group and milieu therapies. 4. Encourage sober living treatment after discharge at the highest level of care to which she is willing to commit. Involuntary Hold Information 96 Hour Hold: 96 Hour Involuntary Admission: Yes 96 Hour Hold Ending Date: 08/30/22 96 Hour Hold Ending Time: 15:12 Attestations NPU Medical Necessity Statement*: Inpatient psychiatric hospitalization is medically necessary and the clinically appropriate intervention at this time. We will monitor medications and make changes as indicated. Her likely length of stay 3-6 days. Coding Level of Care Code Acute Code for [facility] Fwd Diagnoses Psychotic disorder F29 PTSD (post-traumatic stress disorder) F43.10 Major depressive disorder, recurrent F33.9 Methamphetamine use disorder, severe F15.20 Diabetes mellitus with hyperglycemia, with long-term current use of insulin E11.65; Z79.4 H/O heart artery stent Z95.5 Suicidal ideation R45.851 Chest pain R07.9 Nicotine dependence, cigarettes, uncomplicated F17.210
[2022-08-28] MEDS: calcium carbonate 500 mg Chew Tablet 1000 MG PO (11:05)
[2022-08-28 12:14] LABS: Glucose Point of Care 266 mg/dL (70-110)
[2022-08-28] MEDS: fluconazole 100 mg Tablet 150 MG PO (13:12)
[2022-08-28 14:00] VITALS: BP 108/71; PULSE 87; RESP 18; TEMP 36.8; O2SAT 98
[2022-08-28 14:49] VITALS: BP 108/71; PULSE 87; RESP 18; TEMP 36.8; O2SAT 98
[2022-08-28] MEDS: OLANZapine 5 mg ODT PO (15:14)
--- NOTE | 2022-08-28 15:35 | PC.NURSE ---
patient found teardul in her rooms stating she cannot do this anymore. Said her heart doesn't have it anymore and she usually seeks something to help her, more specifically, alcohol, marijuana, and methamphetamines. Patient given Olanzapine 5mg ODT fo anxiety
[2022-08-28] MEDS: alum-mag-hydroxide-sime 30 mL UDC PO ×2 (16:46→21:51)
[2022-08-28 17:57] LABS: Glucose Point of Care 283 mg/dL (70-110)
[2022-08-28 19:54] VITALS: BP 117/82; PULSE 120; RESP 16; TEMP 37.6; O2SAT 96
[2022-08-28 20:09] LABS: Glucose Point of Care 253 mg/dL (70-110)
[2022-08-28] MEDS: trazodone 100 mg Tablet 175 MG PO (21:48)
[2022-08-28] MEDS: hyDROXYzine 25 mg Capsule 50 MG PO (21:50)
[2022-08-28] MEDS: LORazepam 2 mg Tablet PO (21:50)
[2022-08-29 08:31] LABS: Glucose Point of Care 166 mg/dL (70-110)
[2022-08-29] MEDS: insulin lispro 100 unit/1 mL SUBCUT ×4 (08:35→20:56)
[2022-08-29] MEDS: isosorbide mononitrate ER 60 mg Tablet PO (09:26)
[2022-08-29] MEDS: BuSPIRONE 10 mg Tablet PO ×3 (09:26→20:36)
[2022-08-29] MEDS: acetaminophen 325 mg Tablet 650 MG PO ×2 (09:26→20:36)
[2022-08-29] MEDS: escitalopram 10 mg Tablet 20 MG PO (09:27)
[2022-08-29] MEDS: clopidogrel 75 mg Tablet PO (09:27)
[2022-08-29] MEDS: fenofibrate 145 mg Tablet PO (09:27)
[2022-08-29] MEDS: calcium carb-vit d 600mg/400unit 1 Tablet 1 EACH PO (09:27)
[2022-08-29] MEDS: cetirizine 10 mg Tablet PO (09:28)
[2022-08-29] MEDS: aspirin 81 mg EC Tablet PO (09:28)
[2022-08-29] MEDS: nicotine 21 mg Patch 1 PATCH TRANSDERMA (09:31)
[2022-08-29] MEDS: alum-mag-hydroxide-sime 30 mL UDC PO ×2 (09:52→20:39)
[2022-08-29 13:15] LABS: Glucose Point of Care 183 mg/dL (70-110)
[2022-08-29 14:00] VITALS: BP 91/61; PULSE 94; RESP 18; TEMP 36.7; O2SAT 96
--- NOTE | 2022-08-29 14:32 | P.NPUPN_ITS ---
Subjective NPU Subjective: 57 year old white female with methamphetamine dependence admitted with suicidal ideation. She had been more compliant on the milieu. She had been eating and drinking fluids without any issues. She had reported that she had spoken with her daughter who wished to have the patient be under the care of the daughter. Patient was agreeable to this and stated that her methamphetamine use had caused much trouble for her. She had reported having episodes of psychosis even after having withdrawn off of methamphetamine 4 days prior to the psychotic episode. She reports feeling less hopeless. She had reported continued depressed mood but states that she was feeling better. She continued to isolate herself on the milieu. She had reported feeling less groggy with the reduction in trazodone to 175 mg at night. She had continue to report anhedonia. Mental Status Exam MSE Comments: She was is a pleasant white female who was seen in her room today. She appeared much older than her stated age. She was thin and her gait was normal Her hygiene was improved. . There was no clear evidence of any abnormal involuntary motor movements tics or tremors appreciated. There was evidence of moderate psychomotor retardation today. Her mood was described as better. Her affect was restricted today. She denied any homicidal or suicidal ideation. She did report some paranoia but no clear evidence of delusional thinking today. She did not appear to be responding to internal stimuli. Her insight is improving. Her judgment is poor. Her impulse control appeared limited. Her recent and remote memory were grossly intact. Vitals/I&O/Wt Last Vital Signs Temp 99.7 F H 08/28/22 19:54 Pulse 120 H 08/28/22 19:54 Resp 16 08/28/22 19:54 BP 117/82 08/28/22 19:54 Pulse Ox 96 08/28/22 19:54 O2 Del Method Room Air 08/28/22 19:54 Weight last 48 hrs Weight 70.307 kg Data NPU 08/26/22 13:08 08/26/22 13:08 A&P Assessment and plan (1) Psychotic disorder: (2) PTSD (post-traumatic stress disorder): (3) Major depressive disorder, recurrent: (4) Methamphetamine use disorder, severe: (5) Diabetes mellitus with hyperglycemia, with long-term current use of insulin: (6) H/O heart artery stent: (7) Suicidal ideation: (8) Chest pain: (9) Nicotine dependence, cigarettes, uncomplicated: Plan This is a 57-year-old white female with a long history of mental health and addiction issues who presents with suicidal and homicidal ideation after being informed that she would be placed in assisted for actions that were likely substance abuse related. 1.? Patient appears to be doing much better. We will reduce trazodone to 150 mg at night and see if it improves her sleep without causing excess sedation. Continue Lexapro to 20 mg daily and begin Abilify to target depression and psychotic symptoms as well. 2.? Continue every 15 minute checks for safety. 3.? Encourage individual, group and milieu therapies. 4. Encourage sober living treatment after discharge at the highest level of care to which she is willing to commit. 5. Support of guardianship likely. Involuntary Hold Information 96 Hour Hold: 96 Hour Involuntary Admission: Yes 96 Hour Hold Ending Date: 08/30/22 96 Hour Hold Ending Time: 15:12 Attestations NPU Medical Necessity Statement*: Inpatient psychiatric hospitalization is medically necessary and the clinically appropriate intervention at this time. We will monitor medications and make changes as indicated. Her likely length of stay 3-6 days. Coding Level of Care Code Acute Code for [facility] Fwd Diagnoses Psychotic disorder F29 PTSD (post-traumatic stress disorder) F43.10 Major depressive disorder, recurrent F33.9 Methamphetamine use disorder, severe F15.20 Diabetes mellitus with hyperglycemia, with long-term current use of insulin E11.65; Z79.4 H/O heart artery stent Z95.5 Suicidal ideation R45.851 Chest pain R07.9 Nicotine dependence, cigarettes, uncomplicated F17.210
[2022-08-29] MEDS: ARIPiprazole 10 mg Tablet 5 MG PO (15:06)
[2022-08-29 17:56] LABS: Glucose Point of Care 190 mg/dL (70-110)
[2022-08-29] MEDS: hyDROXYzine 25 mg Capsule 50 MG PO (20:36)
[2022-08-29] MEDS: trazodone 100 mg Tablet 175 MG PO (20:36)
[2022-08-29 20:38] LABS: Glucose Point of Care 171 mg/dL (70-110)
[2022-08-29] MEDS: metoprolol tartrate 50 mg Tablet PO (20:38)
[2022-08-29 21:03] VITALS: BP 103/73; PULSE 97; RESP 18; TEMP 37.3; O2SAT 97
[2022-08-30 06:00] VITALS: BP 96/66; PULSE 75; RESP 20; TEMP 36.6; O2SAT 98
[2022-08-30 08:40] LABS: Glucose Point of Care 176 mg/dL (70-110)
[2022-08-30] MEDS: ARIPiprazole 10 mg Tablet 5 MG PO (09:00)
[2022-08-30] MEDS: escitalopram 10 mg Tablet 20 MG PO (09:00)
[2022-08-30] MEDS: calcium carb-vit d 600mg/400unit 1 Tablet 1 EACH PO (09:01)
[2022-08-30] MEDS: fenofibrate 145 mg Tablet PO (09:01)
[2022-08-30] MEDS: clopidogrel 75 mg Tablet PO (09:01)
[2022-08-30] MEDS: cetirizine 10 mg Tablet PO (09:01)
[2022-08-30] MEDS: aspirin 81 mg EC Tablet PO (09:02)
[2022-08-30] MEDS: isosorbide mononitrate ER 60 mg Tablet PO (09:02)
[2022-08-30] MEDS: insulin lispro 100 unit/1 mL SUBCUT ×4 (09:02→21:03)
[2022-08-30] MEDS: nicotine 21 mg Patch 1 PATCH TRANSDERMA (09:03)
[2022-08-30] MEDS: alum-mag-hydroxide-sime 30 mL UDC PO ×2 (12:10→16:47)
[2022-08-30] MEDS: OLANZapine 5 mg ODT PO (12:53)
--- NOTE | 2022-08-30 12:54 | PC.NURSE ---
Pt at station asking staff for something for anxiety/agitation. Offered pt vistaril, but she declined. Said she was getting wound up and didn't want to go off on the head kiln operator. Provided zyprexa after educated on what it did. Pt aware it could make her sleepy. She verbalized her understanding.
[2022-08-30 13:09] LABS: Glucose Point of Care 223 mg/dL (70-110)
[2022-08-30 14:00] VITALS: BP 112/78; PULSE 94; RESP 16; TEMP 36.9; O2SAT 99
--- NOTE | 2022-08-30 14:41 | W.PM.NPUPNS ---
Subjective NPU Subjective: 57 year old white female with methamphetamine dependence admitted with suicidal ideation. She had been more compliant on the milieu. She had been eating and drinking fluids without any issues. She reported feeling depressed and stated that she continued to be in the state of anxiety. She reported that she had felt that the BuSpar had not been helpful for managing her chronic worry. She had also reported previous failures on gabapentin for anxiety as well. She had reported some cravings for amphetamines but had reported that she was hopeful about remaining sober. She stated that she simply wanted to get better. She had reported sleep continuity disruption. She denied any hallucinations at this time. She had reported that she had felt less groggy with the reduction in trazodone last night. She continued to endorse anhedonia and low energy. Mental Status Exam MSE Comments: She was is a pleasant white female who was seen in her room today. She appeared much older than her stated age. She was thin and her gait was normal Her hygiene was improved. . There was no clear evidence of any abnormal involuntary motor movements tics or tremors appreciated. There was evidence of moderate psychomotor retardation today. Her mood was described as worse Her affect was flat today. She denied any homicidal or suicidal ideation. She did report some paranoia but no clear evidence of delusional thinking today. She did not appear to be responding to internal stimuli. Her insight is improving. Her judgment is poor. Her impulse control appeared limited. Her recent and remote memory were grossly intact. Vitals/I&O/Wt Last Vital Signs Temp 98.4 F 08/30/22 14:00 Pulse 94 08/30/22 14:00 Resp 16 08/30/22 14:00 BP 112/78 08/30/22 14:00 Pulse Ox 99 08/30/22 14:00 O2 Del Method Room Air 08/30/22 14:00 Data NPU 08/26/22 13:08 08/26/22 13:08 A&P Assessment and plan (1) Psychotic disorder: (2) PTSD (post-traumatic stress disorder): (3) Major depressive disorder, recurrent: (4) Methamphetamine use disorder, severe: (5) Diabetes mellitus with hyperglycemia, with long-term current use of insulin: (6) H/O heart artery stent: (7) Suicidal ideation: (8) Chest pain: (9) Nicotine dependence, cigarettes, uncomplicated: Plan This is a 57-year-old white female with a long history of mental health and addiction issues who presents with suicidal and homicidal ideation after being informed that she would be placed in penitentiary for actions that were likely substance abuse related. 1.? Patient appears to be doing much better. Continue trazodone to 150 mg at night and see if it improves her sleep without causing excess sedation. Continue Lexapro to 20 mg daily and increase Abilify to 10 mg to target depression and psychotic symptoms as well. DC BuSpar. 2.? Continue every 15 minute checks for safety. 3.? Encourage individual, group and milieu therapies. 4. Encourage sober living treatment after discharge at the highest level of care to which she is willing to commit. 5. Support of guardianship likely. Involuntary Hold Information 96 Hour Hold: 96 Hour Involuntary Admission: Yes 96 Hour Hold Ending Date: 08/30/22 96 Hour Hold Ending Time: 15:12 Attestations NPU Medical Necessity Statement*: Inpatient psychiatric hospitalization is medically necessary and the clinically appropriate intervention at this time. We will monitor medications and make changes as indicated. Her likely length of stay 3-6 days. Coding Level of Care Code Acute Code for g Fwd Diagnoses Psychotic disorder F29 PTSD (post-traumatic stress disorder) F43.10 Major depressive disorder, recurrent F33.9 Methamphetamine use disorder, severe F15.20 Diabetes mellitus with hyperglycemia, with long-term current use of insulin E11.65; Z79.4 H/O heart artery stent Z95.5 Suicidal ideation R45.851 Chest pain R07.9 Nicotine dependence, cigarettes, uncomplicated F17.210
--- NOTE | 2022-08-30 15:08 | PC.NURSE ---
pt. left unit for court being transported by officers of the court.
--- NOTE | 2022-08-30 16:24 | PC.NURSE ---
pt is back on unit transported by court officers.
--- NOTE | 2022-08-30 16:47 | PC.NURSE ---
Administered Maalox 30mL PO to patient for nausea.Will continue to monitor.
[2022-08-30 17:35] LABS: Glucose Point of Care 195 mg/dL (70-110)
[2022-08-30 20:50] LABS: Glucose Point of Care 262 mg/dL (70-110)
[2022-08-30] MEDS: trazodone 100 mg Tablet 175 MG PO (21:00)
[2022-08-30] MEDS: metoprolol tartrate 50 mg Tablet PO (21:00)
[2022-08-30] MEDS: acetaminophen 325 mg Tablet 650 MG PO (21:02)
[2022-08-30 21:59] VITALS: BP 111/71; PULSE 98; RESP 14; TEMP 36.3; O2SAT 96
[2022-08-31 06:00] VITALS: RESP 15
[2022-08-31 07:57] LABS: Glucose Point of Care 168 mg/dL (70-110)
[2022-08-31] MEDS: ARIPiprazole 10 mg Tablet PO (08:05)
[2022-08-31] MEDS: aspirin 81 mg EC Tablet PO (08:05)
[2022-08-31] MEDS: isosorbide mononitrate ER 60 mg Tablet PO (08:06)
[2022-08-31] MEDS: cetirizine 10 mg Tablet PO (08:06)
[2022-08-31] MEDS: clopidogrel 75 mg Tablet PO (08:06)
[2022-08-31] MEDS: metoprolol tartrate 50 mg Tablet PO ×2 (08:06→20:45)
[2022-08-31] MEDS: fenofibrate 145 mg Tablet PO (08:07)
[2022-08-31] MEDS: escitalopram 10 mg Tablet 20 MG PO (08:07)
[2022-08-31] MEDS: calcium carb-vit d 600mg/400unit 1 Tablet 1 EACH PO (08:07)
[2022-08-31] MEDS: nicotine 21 mg Patch 1 PATCH TRANSDERMA (08:08)
[2022-08-31] MEDS: acetaminophen 325 mg Tablet 650 MG PO (08:11)
[2022-08-31] MEDS: insulin lispro 100 unit/1 mL SUBCUT ×4 (09:03→20:40)
--- NOTE | 2022-08-31 11:37 | PC.NURSE ---
21 day paperwork reviewed and new orders were received for 21 day hold to be up on 09/21/22 at 1500.
[2022-08-31 12:05] LABS: Glucose Point of Care 212 mg/dL (70-110)
[2022-08-31] MEDS: hyDROXYzine 25 mg Capsule 50 MG PO ×2 (12:28→20:41)
--- NOTE | 2022-08-31 12:29 | PC.NURSE ---
PT UP TO NURSES STATION REQUESTING ANXIETY MEDICATIONS DUE TO THE OTHER PATIENTS BEING LOUD AND ONE SINGING VERY LOUDLY. STATES IT IS MAKING ME A NERVOUS WRECK. VISTARIL 50 MG WAS GIVEN ORDERED. SEE MAR FOR DETAILS AND TIMES.
--- NOTE | 2022-08-31 13:43 | PC.NURSE ---
pt came to nurses station and stated I will stop eating, drinking, or taking anything you guys want me too until the doctor gives me something else to calm me down. this RN stated that we can talk to the doctor. pt stated he wants me to take that vistaril and it does nothing. pt received Vistaril 50mg at 1228. pt states that it hasn't worked. this RN will administer zydis and inform the Physcian.
[2022-08-31] MEDS: OLANZapine 5 mg ODT PO ×2 (13:51→21:58)
--- NOTE | 2022-08-31 13:52 | PC.NURSE ---
PRN ZYPREXA ZYDIS 5 MG GIVEN PO PER PT C/O AGITATION, UPSET ABOUT PRN VISTARIL NOW FUCKING WORKING
[2022-08-31 14:00] VITALS: BP 116/80; PULSE 72; RESP 18; TEMP 36.9; O2SAT 98
--- NOTE | 2022-08-31 16:26 | P.NPUPN_ITS ---
Subjective NPU Subjective: 57 year old white female with history of methamphetamine dependence admitted with suicidal ideation and depression. She continues to be compliant on the milieu. She had reported feeling less groggy with the reduction in trazodone. She reported that she felt that her anxiety was considerably worse. She had endorsed depressed mood and reported low energy. She had reported that another peer on the unit had been agitating her and reports that she continued to report some feelings of sadness. She reported no side effects from her current medication at this time. She had continued to isolate herself on the milieu. She was compliant with oral intake and her medications. She had complained of having panic attacks. She reported no cravings for methamphetamine. Vitals/I&O/Wt Last Vital Signs Temp 97.4 F L 08/30/22 21:59 Pulse 98 08/30/22 21:59 Resp 15 08/31/22 06:00 BP 111/71 08/30/22 21:59 Pulse Ox 96 08/30/22 21:59 O2 Del Method Room Air 08/30/22 21:59 Data NPU 08/26/22 13:08 08/26/22 13:08 A&P Assessment and plan (1) Psychotic disorder: (2) PTSD (post-traumatic stress disorder): (3) Major depressive disorder, recurrent: (4) Methamphetamine use disorder, severe: (5) Diabetes mellitus with hyperglycemia, with long-term current use of insulin: (6) H/O heart artery stent: (7) Suicidal ideation: (8) Chest pain: (9) Nicotine dependence, cigarettes, uncomplicated: Plan This is a 57-year-old white female with a long history of mental health and addiction issues who presents with suicidal and homicidal ideation after being informed that she would be placed in care home for actions that were likely substance abuse related. 1.? Patient appears to be doing much better. Continue trazodone to 150 mg at night and see if it improves her sleep without causing excess sedation. Continue Lexapro to 20 mg daily and continue Abilify to 10 mg to target depression and psychotic symptoms as well. Trazodone 150mg at night, trial of hydroxyzine 50mg routine for anxiety. 2.? Continue every 15 minute checks for safety. 3.? Encourage individual, group and milieu therapies. 4. Encourage sober living treatment after discharge at the highest level of care to which she is willing to commit. 5. Support of guardianship-letter completed. Involuntary Hold Information 96 Hour Hold: 96 Hour Involuntary Admission: Yes 96 Hour Hold Ending Date: 08/30/22 96 Hour Hold Ending Time: 15:12 Attestations NPU Medical Necessity Statement*: Inpatient psychiatric hospitalization is medically necessary and the clinically appropriate intervention at this time. We will monitor medications and make changes as indicated. Her likely length of stay 3-6 days. Coding Level of Care Code Acute Code for g Fwd Diagnoses Psychotic disorder F29 PTSD (post-traumatic stress disorder) F43.10 Major depressive disorder, recurrent F33.9 Methamphetamine use disorder, severe F15.20 Diabetes mellitus with hyperglycemia, with long-term current use of insulin E11.65; Z79.4 H/O heart artery stent Z95.5 Suicidal ideation R45.851 Chest pain R07.9 Nicotine dependence, cigarettes, uncomplicated F17.210
[2022-08-31 17:23] LABS: Glucose Point of Care 201 mg/dL (70-110)
[2022-08-31] MEDS: alum-mag-hydroxide-sime 30 mL UDC PO (17:23)
[2022-08-31 20:13] LABS: Glucose Point of Care 213 mg/dL (70-110)
[2022-08-31] MEDS: trazodone 100 mg Tablet 150 MG PO (20:41)
[2022-08-31 21:59] VITALS: BP 119/72; PULSE 84; RESP 15; TEMP 36.6; O2SAT 95
--- NOTE | 2022-08-31 22:00 | PC.NURSE ---
PRN zyprexa given as ordered for agitation. Pt stated I am telling you this shit won't work 30 min prior when I gave her the scheduled vistaril.
[2022-09-01 06:00] VITALS: BP 104/70; PULSE 74; RESP 14; TEMP 36.8; O2SAT 97
[2022-09-01] MEDS: clopidogrel 75 mg Tablet PO (09:40)
[2022-09-01] MEDS: calcium carb-vit d 600mg/400unit 1 Tablet 1 EACH PO (09:40)
[2022-09-01] MEDS: ARIPiprazole 10 mg Tablet PO (09:40)
[2022-09-01] MEDS: hyDROXYzine 25 mg Capsule 50 MG PO ×3 (09:40→20:32)
[2022-09-01] MEDS: aspirin 81 mg EC Tablet PO (09:40)
[2022-09-01] MEDS: isosorbide mononitrate ER 60 mg Tablet PO (09:41)
[2022-09-01] MEDS: cetirizine 10 mg Tablet PO (09:41)
[2022-09-01] MEDS: metoprolol tartrate 50 mg Tablet PO (09:41)
[2022-09-01] MEDS: fenofibrate 145 mg Tablet PO (09:41)
[2022-09-01] MEDS: escitalopram 10 mg Tablet 20 MG PO (09:41)
[2022-09-01] MEDS: nicotine 21 mg Patch 1 PATCH TRANSDERMA (09:41)
[2022-09-01 09:47] LABS: Glucose Point of Care 352 mg/dL (70-110)
[2022-09-01] MEDS: insulin lispro 100 unit/1 mL SUBCUT ×3 (10:48→20:30)
[2022-09-01] MEDS: OLANZapine 5 mg ODT PO ×2 (11:33→16:31)
[2022-09-01 12:22] LABS: Glucose Point of Care 149 mg/dL (70-110)
[2022-09-01] MEDS: ondansetron 4 MG Tablet PO (12:34)
[2022-09-01] MEDS: alum-mag-hydroxide-sime 30 mL UDC PO ×2 (12:34→18:06)
--- NOTE | 2022-09-01 13:39 | P.NPUPN_ITS ---
Subjective NPU Subjective: 57 year old white female with history of methamphetamine dependence admitted with suicidal ideation and depression. Patient had been more isolative recently. She had stated that she was feeling anxious still. She had also stated that she had been feeling more irritable. She did not appear to require any as needed medications for agitation today. She had reported adequate sleep on 150 mg of trazodone without being excessively sleepy the next day. She had continued to endorse depressed mood. She reported feeling less hopeless and stated that she was willing to have a guardian for the future to keep her from using illicit drugs. Mental Status Exam MSE Comments: She was is a pleasant white female who was seen in her room today. She appeared much older than her stated age. She was thin and her gait was normal Her hygiene was improved. . There was no clear evidence of any abnormal involuntary motor movements tics or tremors appreciated. There was evidence of mild psychomotor retardation today. Her mood was described as down. Her affect was restricted in range and mood-congruent. She denied any homicidal or suicidal ideation. There was no overt delusions noted. She did not appear to be responding to internal stimuli. Her insight is improving. Her judgment is poor. Her impulse control appeared limited. Her recent and remote memory were grossly intact. Vitals/I&O/Wt Last Vital Signs Temp 98.2 F 09/01/22 06:00 Pulse 74 09/01/22 06:00 Resp 14 09/01/22 06:00 BP 104/70 09/01/22 06:00 Pulse Ox 97 09/01/22 06:00 O2 Del Method Room Air 09/01/22 06:00 Data NPU 08/26/22 13:08 08/26/22 13:08 A&P Assessment and plan (1) Psychotic disorder: (2) PTSD (post-traumatic stress disorder): (3) Major depressive disorder, recurrent: (4) Methamphetamine use disorder, severe: (5) Diabetes mellitus with hyperglycemia, with long-term current use of insulin: (6) H/O heart artery stent: (7) Suicidal ideation: (8) Chest pain: (9) Nicotine dependence, cigarettes, uncomplicated: Plan This is a 57-year-old white female with a long history of mental health and addiction issues who presents with suicidal and homicidal ideation after being informed that she would be placed in [facility] for actions that were likely substance abuse related. 1.? Patient appears to be doing much better. Continue trazodone to 150 mg at night and see if it improves her sleep without causing excess sedation. Continue Lexapro to 20 mg daily and increase Abilify to 15 mg to target depression and psychotic symptoms as well. Trazodone 150mg at night, trial of hydroxyzine 50mg routine for anxiety. 2.? Continue every 15 minute checks for safety. 3.? Encourage individual, group and milieu therapies. 4. Encourage sober living treatment after discharge at the highest level of care to which she is willing to commit. 5. Support of guardianship-letter completed. Involuntary Hold Information 96 Hour Hold: 96 Hour Involuntary Admission: Yes 96 Hour Hold Ending Date: 08/30/22 96 Hour Hold Ending Time: 15:12 Attestations NPU Medical Necessity Statement*: Inpatient psychiatric hospitalization is medically necessary and the clinically appropriate intervention at this time. We will monitor medications and make changes as indicated. Her likely length of stay 3-5days. Coding Level of Care Code Acute Code for [facility] Fwd Diagnoses Psychotic disorder F29 PTSD (post-traumatic stress disorder) F43.10 Major depressive disorder, recurrent F33.9 Methamphetamine use disorder, severe F15.20 Diabetes mellitus with hyperglycemia, with long-term current use of insulin E1 1.65; Z79.4 H/O heart artery stent Z95.5 Suicidal ideation R45.851 Chest pain R07.9 Nicotine dependence, cigarettes, uncomplicated F17.210
[2022-09-01 14:00] VITALS: BP 92/61; PULSE 74; RESP 18; TEMP 36.8; O2SAT 98
[2022-09-01 17:36] LABS: Glucose Point of Care 227 mg/dL (70-110)
[2022-09-01] MEDS: acetaminophen 325 mg Tablet 650 MG PO (18:06)
[2022-09-01 20:29] LABS: Glucose Point of Care 184 mg/dL (70-110)
--- NOTE | 2022-09-01 20:30 | PC.NURSE ---
Pt's scheduled Metoprolol was held tonight due to pt's blood pressure being 88/56.
[2022-09-01] MEDS: trazodone 100 mg Tablet 150 MG PO (20:32)
--- NOTE | 2022-09-01 21:25 | PC.NURSE ---
PRN PO Zofran given as ordered per pt complaint of nausea.
[2022-09-01 22:00] VITALS: BP 88/56; PULSE 75; RESP 12; TEMP 36.4; O2SAT 96
[2022-09-02 06:00] VITALS: BP 120/83; PULSE 71; RESP 16; TEMP 36.6; O2SAT 99
[2022-09-02 08:27] LABS: Glucose Point of Care 175 mg/dL (70-110)
[2022-09-02] MEDS: acetaminophen 325 mg Tablet 650 MG PO (09:52)
[2022-09-02] MEDS: isosorbide mononitrate ER 60 mg Tablet PO (09:52)
[2022-09-02] MEDS: hyDROXYzine 25 mg Capsule 50 MG PO ×3 (09:52→20:22)
[2022-09-02] MEDS: clopidogrel 75 mg Tablet PO (09:53)
[2022-09-02] MEDS: escitalopram 10 mg Tablet 20 MG PO (09:53)
[2022-09-02] MEDS: ARIPiprazole 30 mg Tablet 15 MG PO (09:53)
[2022-09-02] MEDS: nicotine 21 mg Patch 1 PATCH TRANSDERMA (09:53)
[2022-09-02] MEDS: metoprolol tartrate 50 mg Tablet PO (09:53)
[2022-09-02] MEDS: cetirizine 10 mg Tablet PO (09:54)
[2022-09-02] MEDS: aspirin 81 mg EC Tablet PO (09:54)
[2022-09-02] MEDS: calcium carb-vit d 600mg/400unit 1 Tablet 1 EACH PO (09:54)
[2022-09-02] MEDS: OLANZapine 5 mg ODT PO ×2 (09:54→15:08)
[2022-09-02] MEDS: fenofibrate 145 mg Tablet PO (09:54)
[2022-09-02] MEDS: insulin lispro 100 unit/1 mL SUBCUT ×2 (09:55→20:37)
[2022-09-02] MEDS: alum-mag-hydroxide-sime 30 mL UDC PO (10:59)
--- NOTE | 2022-09-02 12:34 | P.NPUPN_ITS ---
Subjective NPU Subjective: Patient presented today reporting that she is bored and that the Vistaril is not doing anything. She identifies that the Zyprexa is helpful and she is having a very anxious moment. We identified that she will be going to her daughter's house and her daughter is working on guardianship. They are clearly aware of the impact of her drug use. The goal is to avoid additional addictive behavior. We discussed reaching out to her daughter to plan for discharge possibly in the morning but by Monday. She reports that she feels she will be safe and that she does have anger problems but that she feels with the Zyprexa as needed she will be able to manage those moments. Mental Status Exam MSE Comments: This is a well-nourished, well-developed white female looking older than her stated age with limited grooming and adequate eye contact. No abnormal movements except for psychomotor retardation. More cooperative with exam in mild distress. Speech was decreased rate and volume. Mood described as fine, affect congruent but subdued. Thought process organized. Thought content: Patient denied suicidal or homicidal ideations, there were no delusions reported or noted, she denied any auditory or visual hallucinations. Attention and concentration appeared intact and memory was mostly reliable but none were formally tested. She is alert and oriented x3. Insight and judgment are limit ed but improving and impulse control is improving. Vitals/I&O/Wt Last Vital Signs Temp 97.9 F 09/02/22 06:00 Pulse 71 09/02/22 06:00 Resp 16 09/02/22 06:00 BP 120/83 09/02/22 06:00 Pulse Ox 99 09/02/22 06:00 O2 Del Method Room Air 09/02/22 06:00 Data NPU 08/26/22 13:08 08/26/22 13:08 A&P Assessment and plan (1) Psychotic disorder: (2) PTSD (post-traumatic stress disorder): (3) Major depressive disorder, recurrent: (4) Methamphetamine use disorder, severe: (5) Diabetes mellitus with hyperglycemia, with long-term current use of insulin: (6) H/O heart artery stent: (7) Suicidal ideation: (8) Chest pain: (9) Nicotine dependence, cigarettes, uncomplicated: Plan This is a 57-year-old white female with a long history of mental health and addiction issues who presents with suicidal and homicidal ideation after being informed that she would be placed in [facility] for actions that were likely substance abuse related. 1.? Patient appears to be doing much better. Continued trazodone to 150 mg at night and see if it improves her sleep without causing excess sedation. Continued Lexapro to 20 mg daily and increased Abilify to 15 mg to target depression and psychotic symptoms as well. Trazodone 150mg at night, failed trial of hydroxyzine 50mg routine for anxiety per patient. 2.? Continue every 15 minute checks for safety. 3.? Encourage individual, group and milieu therapies. 4. Encourage sober living treatment after discharge at the highest level of care to which she is willing to commit. 5. Support of guardianship-letter completed. Involuntary Hold Information 96 Hour Hold: 96 Hour Involuntary Admission: Yes 96 Hour Hold Ending Date: 08/30/22 96 Hour Hold Ending Time: 15:12 Attestations NPU 2 Medical Necessity Statement*: Inpatient psychiatric hospitalization is medically necessary and the clinically appropriate intervention at this time. We will monitor medications and make changes as indicated. Her likely length of stay 1-3 days. Coding Level of Care Code Acute Code for g Fwd Diagnoses Psychotic disorder F29 PTSD (post-traumatic stress disorder) F43.10 Major depressive disorder, recurrent F33.9 Methamphetamine use disorder, severe F15.20 Diabetes mellitus with hyperglycemia, with long-term current use of insulin E11.65; Z79.4 H/O heart artery stent Z95.5 Suicidal ideation R45.851 Chest pain R07.9 Nicotine dependence, cigarettes, uncomplicated F17.210
--- NOTE | 2022-09-02 13:27 | PC.NURSE ---
Due to other events on unit, pt's blood sugar was not obtained so no sliding scale insulin was given at lunchtime.
[2022-09-02 14:00] VITALS: BP 99/72; PULSE 82; RESP 16; TEMP 36.7; O2SAT 98
[2022-09-02] MEDS: ondansetron 4 MG Tablet PO ×2 (14:31→20:21)
--- NOTE | 2022-09-02 14:54 | XRR_ITS ---
PROCEDURE INFORMATION: Exam: XR Abdomen Exam date and time: 09/02/2022 3:05 PM Age: 57 years old Clinical indication: Vomiting; Abdominal pain; Localized; Right lower quadrant (rlq); Additional info: Rlq pain and vomiting TECHNIQUE: Imaging protocol: Radiologic exam of the abdomen. Views: Frontal supine view of the abdomen. 1 View. COMPARISON: CT abdomen pelvis w con* [id number] 08/20/2019 7:21 PM FINDINGS: Lungs: Visualized lungs are clear. Gastrointestinal tract: Increased fecal content in the colon. Nonobstructive bowel gas pattern. Intraperitoneal space: No free intraperitoneal air. Surgical clips in the right lower quadrant. Organs: Stable findings consistent with a previous cholecystectomy with surgical clips in the right upper quadrant. No organomegaly. Vasculature: Multiple calcifications in the pelvis most likely representing calcified phleboliths. Bones/joints: Degenerative changes in the spine and hips. XR/XR KUB portable [id number] IMPRESSION: 1. Nonobstructed bowel gas pattern. 2. Increased fecal content in the colon. 3. Surgical clips in the right lower quadrant. 4. Incidental/nonacute findings are listed in the report.
[2022-09-02] MEDS: polyethylene glycol 3350 Pkt 17 gm PO (17:31)
[2022-09-02 17:40] LABS: Glucose Point of Care 167 mg/dL (70-110)
--- NOTE | 2022-09-02 17:41 | PC.NURSE ---
obtained pt blood glucose levels. pt blood glucose was 167. pt stated that she was not going to eat due to not feeling well. This RN did not administer the 2 units of insulin that were due because of this.
[2022-09-02] MEDS: trazodone 100 mg Tablet 150 MG PO (20:21)
[2022-09-02 20:32] LABS: Glucose Point of Care 199 mg/dL (70-110)
--- NOTE | 2022-09-02 21:00 | PC.NURSE ---
Pt's scheduled 2100 Metoprolol was held due to pt blood pressure being 109/72.
[2022-09-02 22:00] VITALS: BP 109/72; PULSE 78; RESP 17; TEMP 36.8; O2SAT 96
[2022-09-03 06:00] VITALS: RESP 15
[2022-09-03 07:37] LABS: Glucose Point of Care 160 mg/dL (70-110)
[2022-09-03] MEDS: insulin lispro 100 unit/1 mL SUBCUT ×2 (08:41→12:05)
[2022-09-03] MEDS: cetirizine 10 mg Tablet PO (08:42)
[2022-09-03] MEDS: ARIPiprazole 30 mg Tablet 15 MG PO (08:42)
[2022-09-03] MEDS: clopidogrel 75 mg Tablet PO (08:42)
[2022-09-03] MEDS: metoprolol tartrate 50 mg Tablet PO (08:43)
[2022-09-03] MEDS: aspirin 81 mg EC Tablet PO (08:43)
[2022-09-03] MEDS: isosorbide mononitrate ER 60 mg Tablet PO (08:43)
[2022-09-03] MEDS: hyDROXYzine 25 mg Capsule 50 MG PO (08:43)
[2022-09-03] MEDS: escitalopram 10 mg Tablet 20 MG PO (08:43)
[2022-09-03] MEDS: fenofibrate 145 mg Tablet PO ×2 (08:43)
[2022-09-03] MEDS: sennosides-docusate Tablet 1 TAB PO (08:43)
[2022-09-03] MEDS: polyethylene glycol 3350 Pkt 17 gm PO (08:44)
[2022-09-03] MEDS: nicotine 21 mg Patch 1 PATCH TRANSDERMA (08:44)
[2022-09-03] MEDS: acetaminophen 325 mg Tablet 650 MG PO (08:45)
[2022-09-03] MEDS: OLANZapine 5 mg ODT PO (09:26)
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
[2022-09-03 10:42] VITALS: BP 105/75; PULSE 94; RESP 18; TEMP 36.9; O2SAT 98
[2022-09-03 11:57] LABS: Glucose Point of Care 257 mg/dL (70-110)
--- NOTE | 2022-09-03 13:03 | PC.NURSE ---
written discharge instruction discussed and left with pt to take home. pt stated understanding and compliance. pt is sitting in lobby waiting on pharmacy to bring meds to beds to facility. pt will be going home via pov with daughter.
== END 2022-09-03 14:15 | disposition home or self-care (01) | DRG 885 ==
LOC: ER 15:48 → NP 15:58
PROVIDERS: Admitting Provider Psychiatry & Neurology Psychiatry; Emergency Provider Physician Assistant; PCP Nurse Practitioner; Visit Provider Psychiatry & Neurology Psychiatry
DX: F29 Unspecified psychosis not due to a substance or known physiological condition (principal); F33.9 Major depressive disorder, recurrent, unspecified; F15.20 Other stimulant dependence, uncomplicated; R45.851 Suicidal ideations; F43.10 Post-traumatic stress disorder, unspecified; F10.10 Alcohol abuse, uncomplicated; Z79.82 Long term (current) use of aspirin; Z79.02 Long term (current) use of antithrombotics/antiplatelets; Z79.4 Long term (current) use of insulin; Z79.51 Long term (current) use of inhaled steroids; J45.909 Unspecified asthma, uncomplicated; I25.10 Atherosclerotic heart disease of native coronary artery without angina pectoris; Z95.5 Presence of coronary angioplasty implant and graft; E11.65 Type 2 diabetes mellitus with hyperglycemia; E78.5 Hyperlipidemia, unspecified; K21.9 Gastro-esophageal reflux disease without esophagitis; I10 Essential (primary) hypertension; F17.210 Nicotine dependence, cigarettes, uncomplicated; R45.850 Homicidal ideations; R07.9 Chest pain, unspecified; R10.31 Right lower quadrant pain
CPT/HCPCS: 36415; 36416; 74018; 80048; 80053; 80306; 80307; 82962; 85025; 87086; 96372; 97165; 99285; J1815; Q0162; Q0163

== ENCOUNTER 2023-11-06 18:36 | Inpatient (IN) | payer MEDICARE, OTHER, MEDICAID, SELFPAY ==
[2023-11-06 18:48] VITALS: BP 133/85; PULSE 86; RESP 16; TEMP 38.2; O2SAT 98; BMI 29.0
--- NOTE | 2023-11-06 18:48 | ED.C_ITS ---
HPI - Psych 2 General: Chief Complaint: Psychiatric Symptoms Stated Complaint: SI Time Seen by Provider: 11/06/23 18:42 Source: patient and EMS Mode of arrival: EMS Limitations: no limitations History of Present Illness: 58-year-old female has a health history depression states that she been having increased depression with no longer wanting to live. States she been having suicidal thoughts also with a plan of overdosing. She denies any worsening improving factors denies any real Associated symptoms: Reports depression and suicidal ideation Review of Systems 2 Const: Denies: fever(s), chills, body aches or change in appetite ENMT: Denies: throat pain or dental pain Card: Denies: chest pain Resp: Denies: dyspnea GI: Denies: abdominal pain, nausea, vomiting or diarrhea Musc: Denies: neck pain or back pain Skin/Breast: Denies: rash Neuro: Denies: headache(s) Psych: Reports: depression and suicidal ideation PFSH ED 2 PFSH: Medical History Other stressful life events affecting family and household Diabetes mellitus with hyperglycemia, with long-term current use of insulin Type 2 diabetes mellitus Nicotine dependence, cigarettes, uncomplicated Dyspareunia DDD (degenerative disc disease), lumbar Asthma CAD (coronary artery disease) Hypertension Dyslipidemia GERD (gastroesophageal reflux disease) Surgical History Hx of wisdom tooth extraction H/O heart artery stent (~2018) 2 stents placed History of appendectomy History of tubal ligation (~1993) . Performed by Dr. Jesus at [facility] [place]. History of cholecystectomy (02/13/14) Laparoscopic. Performed by Dr. Wahl at [facility] [place] Family History Family/Other Breast cancer aunt and cousin Grandmother Diabetes Hypertension maternal Heart disease maternal Hypercholesteremia maternal Mother Heart disease Hypercholesteremia Social History Smoking and tobacco/nicotine status: current every day tobacco/nicotine user Second hand smoke exposure: No Alcohol intake: current Substance/Drug Use: current Adopted: No Caregiver/support person: Yes Lives independently: No Household members: family Housing: House Marital status: Single Number of children: 3 service: No Current occupational status: unemployed Do you think of yourself as: Straight/Heterosexual Current gender identity: Female Physical Exam 2 Const: COMMON NORMALS: no acute distress, patient oriented x3 and healthy appearing HENMT: COMMON NORMALS: normocephalic and atraumatic HEAD & SCALP: n ormocephalic and atraumatic Eye: COMMON NORMALS: Equal, round and reactive pupils present and EOMs intact bilaterally PUPIL: Yes Equal, round and reactive pupils present Neck/C-Spine: COMMON NORMALS: full ROM and supple Chest: COMMONS NORMALS: normal inspection of the chest and normal palpation of entire chest wall Resp: COMMON NORMALS: normal respiratory effort, No retractions, No use of accessory muscles and clear to auscultation bilaterally AUSCULTATION: clear to auscultation bilaterally Cardio: COMMON NORMALS: regular rate, regular rhythm and No murmurs present (Cardio) RATE: regular rate RHYTHM: regular rhythm GI: COMMON NORMALS: Normal to inspection, nondistended, normoactive bowel sounds present, Soft to palpation, non-tender and no masses PALPATION: Yes Soft to palpation Extremity: COMMON NORMALS: normal to inspection and full ROM Neuro: COMMON NORMALS: patient oriented x3, moves all extremities and no focal motor deficits Psych: COMMON NORMALS: mental status grossly normal and cooperative THOUGHT CONTENT: Yes Suicidality present Skin: COMMON NORMALS: no rashes or lesions noted and no wounds GENERAL SKIN EXAM: no rashes or lesions noted Course 2 Vital Signs: Vital signs: Vital Signs Temperature 100.7 F H 11/06/23 18:48 Pulse Rate 86 11/06/23 18:48 Respiratory Rate 16 11/06/23 18:48 Blood Pressure 133/85 11/06/23 18:48 Pulse Oximetry 98 11/06/23 18:48 Oxygen Delivery Me thod Room Air 11/06/23 18:48 MDM - Psych Medical Decision Making Patient presents here with suicidal ideation she is found to be hyperkalemic with a slight acute kidney injury likely from dehydration he was given IV fluids along with insulin D10 I spoke to the hospitalist will admit medically at this time patient is under 96-hour hold of spoke to psychiatrist who is consulted. Medical Records I reviewed the patient's medical records. Lab Data I reviewed the patient's lab results. 11/06/23 18:53 11/06/23 18:53 Laboratory Results WBC 10.15 10^3/uL (3.29-11.43) 11/06/23 18:53 RBC 4.04 10^6/uL (3.85-5.65) 11/06/23 18:53 Hgb 11.70 g/dL (11.27-16.99) 11/06/23 18:53 Hct 35.1 % (36-47) L 11/06/23 18:53 MCV 86.9 fl (85-98) 11/06/23 18:53 MCH 29.0 pg (27-33) 11/06/23 18:53 MCHC 33.3 g/dL (30-55) 11/06/23 18:53 RDW 12.9 % (12.1-15.1) 11/06/23 18:53 Plt Count 508 10^3/cmm (157-399) H 11/06/23 18:53 MPV 9.3 fL (7.4-10.4) 11/06/23 18:53 Neut % (Auto) 63.0 % 11/06/23 18:53 Lymph % (Auto) 29.8 % 11/06/23 18:53 [place] % (Auto) 4.8 % 11/06/23 18:53 Eos % (Auto) 1.8 % 11/06/23 18:53 Baso % (Auto) 0.3 % 11/06/23 18:53 Neut # (Auto) 6.40 10^3/uL (1.8-7.7) 11/06/23 18:53 Lymph # (Auto) 3.0 10^3/uL (0.8-4.8) 11/06/23 18:53 [place] # (Auto) 0.5 10^3/uL (0.2-0.9) 11/06/23 18:53 Eos # (Auto) 0.2 10^3/uL (0.0-0.8) 11/06/23 18:53 Baso # (Auto) 0.0 10^3/uL (0.0-0.1) 11/06/23 18:53 Nucleated RBC % (auto) 0 % 11/06/23 18:53 Nucleated RBCs # 0.0 /100WBC 11/06/23 18:53 Sodium 132 mmol/L (136-145) L 11/06/23 18:53 Potassium 6.0 mmol/L (3.5-5.1) H 11/06/23 18:53 Chloride 101 mmol/L (98-107) 11/06/23 18:53 Carbon Dioxide 18 mmol/L (22-29) L 11/06/23 18:53 Anion Gap 19.0 (5-19) 11/06/23 18:53 BUN 30 mg/dL (6-20) H 11/06/23 18:53 Creatinine 2.2 mg/dL (0.5-0.9) H 11/06/23 18:53 GFR Calculation 22.9 mL/min (90-130) L 11/06/23 18:53 Glucose 139 mg/dL (65-115) H 11/06/23 18:53 Calculated Osmolality 282 mOsm/kg (285-295) L 11/06/23 18:53 Calcium 9.6 mg/dL (8.5-10.5) 11/06/23 18:53 Total Bilirubin 0.2 mg/dL (0.15-1.2) 11/06/23 18:53 AST 15 U/L (0-32) 11/06/23 18:53 ALT 15 U/L (0-33) 11/06/23 18:53 Alkaline Phosphatase 59 U/L (35-105) 11/06/23 18:53 Total Protein 7.8 g/dL (6.6-8.7) 11/06/23 18:53 Albumin 4.3 g/dL (3.5-5.2) 11/06/23 18:53 Globulin 3.5 g/dL (1.3-4.6) 11/06/23 18:53 Salicylates < 0.3 mg/dL (3-10) L 11/06/23 18:53 Acetaminophen < 5.0 ug/mL (10-30) L 11/06/23 18:53 Ethyl Alcohol < 10 mg/dL (0-10) 11/06/23 18:53 All radiology interpretation(s) finalized by discharge Discharge Plan Discharge Patient Disposition: Admitted As Inpatient Clinical Impression: Suicidal ideation, Acute kidney injury, Hyperkalemia Condition: Stable Prescriptions: No Action omeprazole 20 mg capsule,delayed release(DR/EC) 20 mg PO DAILY insulin aspart U-100 [Novolog FlexPen U-100 Insulin] 100 unit/mL (3 mL) insulin pen See Rx Instructions SUBCUT TID Qty: 15 0RF Rx Instructions: 110-129=3U 130-150=6U 151-200=9U 201-250=12U 251-300=15U 301-350=18U 351-400=21U >400=24U Spiriva with HandiHaler 18 mcg capsule, w/inhalation device 1 cap inhalation DAILY Qty: 30 2RF Rx Instructions: puncture 1 cap using device; one dose = 2 inhalations aspirin 81 mg Capsule 81 mg PO DAILY Qty: 0 calcium carbonate-vitamin D3 600 mg-10 mcg (400 unit) Tablet 1 tab PO DAILY 30 Days Qty: 30 1RF cetirizine 10 mg Tablet 10 mg PO DAILY 30 Days Qty: 30 1RF clopidogrel 75 mg Tablet 75 mg PO DAILY 30 Days Qty: 30 1RF isosorbide mononitrate 60 mg Tablet Extended Release 24 Hr 60 mg PO DAILY 30 Days Qty: 30 1RF metoprolol tartrate 50 mg Tablet 50 mg PO BID@0900,2100 30 Days Qty: 60 1RF fenofibrate nanocrystallized 145 mg Tablet 145 mg PO DAILY 30 Days Qty: 30 1RF Levemir FlexTouch U100 Insulin 100 unit/mL (3 mL) insulin pen See Rx Instructions SUBCUT DAILY Qty: 21 2RF Rx Instructions: up 70 units SUBCUT daily; Ventolin HFA 90 mcg/actuation HFA aerosol inhaler 2 puff INHALATION QID PRN (Reason: Shortness Of Breath) trazodone 100 mg Tablet 150 mg PO BEDTIME 30 Days Qty: 45 1RF aripiprazole 15 mg tablet 15 mg PO DAILY 30 Days Qty: 30 1RF escitalopram oxalate 20 mg tablet 20 mg PO DAILY 30 Days Qty: 30 1RF hydroxyzine pamoate 50 mg capsule 50 mg PO TID 30 Days Qty: 90 1RF Coding Level of Care Code ED Litigation Legal Assistant 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
[2023-11-06 19:09] LABS: Basophils % 0.3 %; Eosinophils # 0.2 10^3/uL (0.0-0.8); Eosinophils % 1.8 %; Hematocrit 35.1 % (36-47); Lymphocytes % 29.8 %; Mean Corpuscular HGB Conc 33.3 g/dL (30-55); Mean Corpuscular Volume 86.9 fl (85-98); Mean Platelet Volume 9.3 fL (7.4-10.4); Monocytes # 0.5 10^3/uL (0.2-0.9); Monocytes % 4.8 %; Nucleated Red Blood Cells % 0 %; Platelet Count 508 10^3/cmm (157-399); Red Blood Count 4.04 10^6/uL (3.85-5.65); Red Cell Distribution Width 12.9 % (12.1-15.1); White Blood Count 10.15 10^3/uL (3.29-11.43)
--- NOTE | 2023-11-06 19:26 | XRR_ITS ---
PROCEDURE INFORMATION: Exam: XR Chest Exam date and time: 11/06/2023 7:40 PM Age: 58 years old Clinical indication: Screening exam; Other screening; Additional info: Psych TECHNIQUE: Imaging protocol: Radiologic exam of the chest. Views: 1 view. COMPARISON: CR XR chest 1V portable [id number] 06/11/2022 9:22 PM FINDINGS: Lungs: Unremarkable. No consolidation. Pleural spaces: Unremarkable. No pleural effusion. No pneumothorax. Heart/Mediastinum: Unremarkable. No cardiomegaly. Bones/joints: Moderate thoracic spondylosis. XR/XR chest 1V portable [id number] IMPRESSION: No acute findings.
[2023-11-06 19:33] LABS: Alanine Aminotransferase 15 U/L (0-33); Albumin Level 4.3 g/dL (3.5-5.2); Alkaline Phosphatase 59 U/L (35-105); Aspartate Amino Transferase 15 U/L (0-32); Blood Urea Nitrogen 30 mg/dL (6-20); Calcium 9.6 mg/dL (8.5-10.5); Carbon Dioxide 18 mmol/L (22-29); Chloride 101 mmol/L (98-107); Creatinine Clr Calc Pharmacy 30.0268; Globulin 3.5 g/dL (1.3-4.6); Glomerular Filtration Rate 22.9 mL/min (90-130); Glucose 139 mg/dL (65-115); Osmolality Calculated 282 mOsm/kg (285-295); Sodium 132 mmol/L (136-145); Total Bilirubin 0.2 mg/dL (0.15-1.2); Total Protein 7.8 g/dL (6.6-8.7)
[2023-11-06 19:35] LABS: Acetaminophen < 5.0 ug/mL (10-30); Alcohol Level < 10 mg/dL (0-10); Salicylate < 0.3 mg/dL (3-10)
--- NOTE | 2023-11-06 19:55 | PC.NURSE ---
96 HH Pt served with copy of 96 HH by this RN and security. Pt A&O, pt response was If that doctor puts me on a no sugar diet I aint eating! Tell him that.
--- NOTE | 2023-11-06 20:05 | CTR_ITS ---
PROCEDURE INFORMATION: Exam: CT Abdomen And Pelvis Without Contrast Exam date and time: 11/06/2023 8:21 PM Age: 58 years old Clinical indication: Condition or disease; Other: [place] TECHNIQUE: Imaging protocol: Computed tomography of the abdomen and pelvis without contrast. Radiation optimization: All CT scans at this facility use at least one of these dose optimization techniques: automated exposure control; mA and/or kV adjustment per patient size (includes targeted exams where dose is matched to clinical indication); or iterative reconstruction. COMPARISON: CT abdomen pelvis w con* [id number] 08/20/2019 7:21 PM RADIATION DOSE METRICS: Total DLP (mGy-cm): 782 FINDINGS: Coronary arteries: Severe calcified coronary artery disease. Liver: Normal. No mass. Gallbladder and biliary ducts: Stable cholecystectomy. Pancreas: Normal. No ductal dilation. Spleen: Normal. No splenomegaly. Adrenal glands: Normal. No mass. Kidneys and ureters: Normal. No hydronephrosis. Stomach and bowel: Unremarkable. No obstruction. No mucosal thickening. Appendix: Interval appendectomy since the previous exam. Intraperitoneal space: Unremarkable. No free air. No significant fluid collection. Vasculature: Calcification of the abdominal aorta and/or iliac arteries consistent with atherosclerotic vessel disease. One or more calcified pelvic phleboliths. Lymph nodes: Unremarkable. No enlarged lymph nodes. Urinary bladder: Unremarkable as visualized. Reproductive: Stable bilateral tubal ligation. Bones/joints: Moderate to severe multilevel spine degenerative changes including degenerative disc disease, spondylosis and facet degenerative changes. Mild levoscoliosis. Moderate thoracic spondylosis. Soft tissues: Unremarkable. CT/CT abdomen pelvis con [id number] IMPRESSION: 1. Severe calcified coronary artery disease. 2. Interval appendectomy since the previous exam. 3. No hydronephrosis.
[2023-11-06] MEDS: acetaminophen 500 mg Tablet 1000 MG PO (20:12)
[2023-11-06] MEDS: insulin regular-human 100 units/1 mL 10 UNIT IVP (20:16)
[2023-11-06] MEDS: sodium chloride 0.9% 1,000 ML 999 ML IV (20:17)
[2023-11-06] MEDS: dextrose 10% 250 ML 1000 ML IV (20:17)
[2023-11-06 20:23] LABS: Amphetamines Screen Urine Negative (Negative); Barbiturates Screen Urine Negative (Negative); Benzodiazepines Screen Urine Negative (Negative); Cocaine Screen Urine Negative (Negative); Opiate Screen Urine Negative (Negative); PCP Screen Urine Negative (Negative); THC Screen Urine Positive (Negative)
[2023-11-06 20:43] LABS: Add Urine Microscopic? YES; Bilirubin Urine Neg (Negative); Blood Urine Neg (Negative); Glucose Urine UA Norm (Normal); Ketones Urine 1+ (Negative); Leukocyte Esterase Urine 2+ (Negative); Nitrate Urine Negative (Negative); Protein Urine Neg (Negative); RBC Urine 0-4 /hpf (0-2); Specific Gravity, Urine 1.015 (1.005-1.030); Urine Appearance Slightly Cloudy (CLEAR); Urine Color Yellow (Yellow); Urobilinogen Urine Neg (Negative); WBC Urine 15-25 /hpf (0-5); pH Urine 5 (5-7)
[2023-11-06 20:44] LABS: Add Urine Culture? No; Bacteria Urine 1+ /hpf; Mucus Urine 3+ /hpf; Squamous Epithelial Cell Urine 15-25 /hpf (0-5)
[2023-11-06 21:44] VITALS: BP 142/85; PULSE 77; RESP 20; TEMP 36.6; O2SAT 98
[2023-11-06 21:53] LABS: Glucose Point of Care 103 mg/dL (70-110)
--- NOTE | 2023-11-06 22:00 | PM.HP ---
Providers/Chief Complaint Admitting Physician: Gabe Burleson MD Chief Complaint: SI History of Present Illness Jaida Thorpe is a 58 year old female past medical history of COPD, diabetes, hypertension, dyslipidemia and bipolar 1 disorder who presented to the hospital today with chief complaints of suicidal ideation. States that she has been thinking about dying, though has not made any concrete plans to commit suicide. She was incidentally diagnosed to have hyperkalemia and YARITZA for which medicine admission has been requested. Patient reports that she had been constipated the last several days for which she took MiraLAX and this resulted in diarrhea for 5 days. States that it was at the point of incontinence. She feels she may have been dehydrated from this. There has been no recent new medications added to her list. Denies any vomiting. States that she is having adequate p.o. intake. No history of IV or recreational drug use. Review of Systems General: Reports: 10 or more systems reviewed and unremarkable except in HPI and below Const: Denies: fever(s), chills or body aches Eyes: Denies: change in vision, blurry vision or photophobia ENMT: Reports: hoarseness; Denies: throat pain, enlarged tonsils, odynophagia or nasal congestion Card: Denies: chest pain, palpitations, irregular heart rhythm, edema, swelling of feet/ankles, lightheadedness, pre-syncope, dyspnea on exertion or orthopnea Resp: Denies: dyspnea, productive cough, non-productive cough, wheezing, stridor, pain on inspiration, change in phlegm color, hemoptysis or chest congestion GI: Denies: abdominal pain, nausea, vomiting, hematemesis, coffee ground emesis, dysphagia, heartburn, diarrhea, constipation, GI cramping, change in stool character, hematochezia or melena : Denies: flank pain, difficulty voiding, dysuria, urinary frequency, urinary urgency, urinary hesitancy or hematuria Musc: Denies: neck pain, back pain, extremity pain, joint swelling, joint warmth or deformity Neuro: Denies: headache(s), numbness in extremities, weakness in extremities, sensory changes, difficulty walking, frequent falls, dizziness, vertigo, behavioral changes, Slurred speech present or seizure-like activity Psych: Denies: anxiety, depression, suicidal ideation or homicidal ideation Endo: Denies: polyuria, polydipsia, tired all the time, cold intolerance or hot flashes Emery/Lymph: Denies: easy bruising or easy bleeding Medications/Allergies Home Medications Medication Instructions Recorded Confirmed Last Taken Type aspirin 81 mg capsule 81 mg PO DAILY ##0 08/07/20 08/24/22 08/08/20 12:00 History omeprazole 20 mg capsule,delayed 20 mg PO DAILY 02/01/21 08/24/22 06/21/21 19:30 History release calcium carbonate 600 mg-vitamin 1 tab PO DAILY 30 days #30 tabs 06/21/22 08/24/22 Unknown Rx D3 10 mcg (400 unit) tablet cetirizine 10 mg tablet 10 mg PO DAILY 30 days #30 tabs 06/21/22 08/24/22 Unknown Rx clopidogrel 75 mg tablet 75 mg PO DAILY 30 days #30 tabs 06/21/22 08/24/22 Unknown Rx fenofibrate nanocrystallized 145 145 mg PO DAILY 30 days #30 tabs 06/21/22 08/24/22 Unknown Rx mg tablet insulin detemir U-100 100 unit/mL See Rx Instructions SUBCUT DAILY 06/21/22 08/24/22 Unknown Rx (3 mL) subcutaneous pen (Levemir #21 mL FlexTouch U-100 Insulin) isosorbide mononitrate 60 mg 60 mg PO DAILY 30 days #30 tabs 06/21/22 08/24/22 Unknown Rx tablet,extended release 24 hr metoprolol tartrate 50 mg tablet 50 mg PO BID@0900,2100 30 days #60 06/21/22 08/24/22 Unknown Rx tabs insulin aspart U-100 100 unit/mL See Rx Instructions SUBCUT TID #15 07/04/22 08/24/22 Unknown Rx (3 mL) subcutaneous pen (Novolog mL FlexPen U-100 Insulin aspart) tiotropium bromide 18 mcg capsule 1 cap inhalation DAILY #30 07/04/22 08/24/22 Unknown Rx with inhalation device (Spiriva inhalations with HandiHaler) albuterol sulfate 90 mcg/actuation 2 puff inhalation QID PRN 08/24/22 08/24/22 Unknown History aerosol inhaler (Ventolin HFA) Shortness Of Breath aripiprazole 15 mg tablet 15 mg PO DAILY 30 days #30 tabs 09/03/22 Unknown Rx escitalopram oxalate 20 mg tablet 20 mg PO DAILY 30 days #30 tabs 09/03/22 Unknown Rx hydroxyzine pamoate 50 mg capsule 50 mg PO TID 30 days #90 caps 09/03/22 Unknown Rx trazodone 100 mg tablet 150 mg (1.5 x 100 mg) PO BEDTIME 09/03/22 Unknown Rx 30 days #45 tabs Allergies Allergy/AdvReac Type Severity Reaction Status Date / Time pantoprazole [From Protonix] Allergy Severe ADR-Vomitin Verified 08/24/22 13:28 g paroxetine [From Paxil] AdvReac Mild ADR-Shakine Verified 08/24/22 13:28 ss duloxetine [From Cymbalta] AdvReac Unknown SI Verified 11/06/23 22:36 bupropion [From Wellbutrin] AdvReac ADR-Vomitin Verified 08/24/22 13:28 g metformin AdvReac ADR-Diarrhe Verified 08/24/22 13:28 a PFSH Acute PFSH: Medical History Other stressful life events affecting family and household Diabetes mellitus with hyperglycemia, with long-term current use of insulin Type 2 diabetes mellitus Nicotine dependence, cigarettes, uncomplicated Dyspareunia DDD (degenerative disc disease), lumbar Asthma CAD (coronary artery disease) Hypertension Dyslipidemia GERD (gastroesophageal reflux disease) Surgical History Hx of wisdom tooth extraction H/O heart artery stent (~2018) 2 stents placed History of appendectomy History of tubal ligation (~1993) . Performed by Dr. Jesus at [facility] – [place]. History of cholecystectomy (02/13/14) Laparoscopic. Performed by Dr. Wahl at [facility] – [place] Family History Family/Other Breast cancer aunt and cousin Grandmother Diabetes Hypertension maternal Heart disease maternal Hypercholesteremia maternal Mother Heart disease Hypercholesteremia Social History Smoking and tobacco/nicotine status: current every day tobacco/nicotine user Second hand smoke exposure: No Alcohol intake: current Substance/Drug Use: current Adopted: No Caregiver/support person: Yes Lives independently: No Household members: family Housing: House Marital status: Single Number of children: 3 service: No Current occupational status: unemployed Do you think of yourself as: Straight/Heterosexual Current gender identity: Female Vitals/I&O/Wt Last Vital Signs Temp 98.2 F 11/06/23 23:09 Pulse 91 11/06/23 23:09 Resp 18 11/06/23 23:09 BP 134/74 11/06/23 23:09 Pulse Ox 96 11/06/23 23:09 O2 Del Method Room Air 11/06/23 23:09 11/06/23 11/06/23 11/07/23 14:59 22:59 06:59 Intake Total 1250 / 1250 Output Total 0 / 0 Balance 1250 / 1250 Weight last 48 hrs Weight 87.362 kg Weight 81.647 kg Physical Exam Narrative: General: No acute distress, AO x3 HEENT: PERRLA, pupils bilaterally equal and reactive, pallors not present Chest: Normal vesicular breath sounds, no added sounds, equal good air entry bilaterally CVS: S1-S2 regular, no murmurs, no tachycardia, no gallops, no rubs Abdomen: Soft, nontender, no organomegaly, bowel sounds present Neuro: No focal deficits, no facial deformity, AO x3, power 5/5 in all limbs Data 11/06/23 18:53 11/07/23 00:05 A&P Assessment and plan (1) Acute kidney injury: YARITZA with cr at 2.2 today, previous baseline at 1.1 [facility] urinanalysis, urine lytes suspect related to recent GI losses from diarrhea reported by patient IVF NS @ 75 cc/ hr Monitor urine output closely no Obvious nephrotoxic medications on home list (2) Hyperkalemia: Currently improving after receiving treatment in ER Improved from 6.1--> 5.3 Trend with hydration (3) Major depressive disorder, recurrent: (4) Suicidal ideation: Currently admitted with Psychiatry consulted from ER Planned transfer to psychiatry once renal function/electrolytes start to improve (5) Hypertension: Continue home doses of metoprolol, Imdur Qualifiers: Hypertension type: essential hypertension Qualified Code(s): I10 - Essential (primary) hypertension (6) Diabetes mellitus with hyperglycemia, with long-term current use of insulin: Insulin sliding scale Plan H/o Smoking: Offered nicotine patch DVT ppx: heparin Full code Attestations Medical Necessity Statement*: > 2 midnight admission anticipated Coding Level of Care Code Acute Code for Chg Fwd High MDM includes number and complexity of problems actively addressed during encounter, amount and/or complexity of data reviewed/ordered and described risk of complication, morbidity or mortality of management as documented Diagnoses Acute kidney injury N17.9 Hyperkalemia E87.5 Major depressive disorder, recurrent F33.9 Suicidal ideation R45.851 Essential hypertension I10 Hypertension type: essential hypertension Type 2 diabetes mellitus with hyperglycemia, with long-term current use of insulin E11.65; Z79.4
[2023-11-06] MEDS: nicotine 14 mg Patch 1 PATCH TRANSDERMA (22:12)
--- NOTE | 2023-11-06 22:19 | PC.NURSE ---
Addendum entered by Shameka Brown RN 11/06/23 22:27: Belongings are in 3 patient belonging bags with patient labels on each bag. Addendum entered by Shameka Brown RN 11/06/23 22:25: Belongings would not fit in [facility]. Belongings kept at nurse's station. 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
--- NOTE | 2023-11-06 22:36 | PC.NURSE ---
Patient states she does not know the names of her home medications and does not have a list. Unable to complete med rec at this time.
--- NOTE | 2023-11-06 22:39 | PC.NURSE ---
Patient states I don't go for a few days, and then when I do go, I go a lot and can't hardly stop it, when asking her about her bowel movement.
--- NOTE | 2023-11-06 22:45 | PC.NURSE ---
Addendum entered by Shameka Brown RN 11/07/23 06:50: Paperwork for patient's guardianship is in paper chart. Original Note: Patient states she wears 2 liters nasal cannula at night. Patient states her guardian is her daughter, Maxine, however we do not currently have a copy of the paperwork.
--- NOTE | 2023-11-06 22:54 | PC.NURSE ---
Belongings locked up in [facility]: shoes, nightgown, purse (one in each bags=3 patient belongings bags each with a patient label). 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
--- NOTE | 2023-11-06 23:02 | PC.NURSE ---
Patient asking for nicotine patch. Dr. Roman ordered 14 gm Nicotine patch.
[2023-11-06 23:09] VITALS: BP 134/74; PULSE 91; RESP 18; TEMP 36.8; O2SAT 96
[2023-11-07] VITALS (10 sets, daily range): BP systolic 131–176; BP diastolic 82–94; PULSE 69–100; RESP 16–18; TEMP 36.4–37.7; O2SAT 94–98
[2023-11-07 00:45] LABS: Blood Urea Nitrogen 30 mg/dL (6-20); Carbon Dioxide 18 mmol/L (22-29); Chloride 96 mmol/L (98-107); Glomerular Filtration Rate 24.2 mL/min (90-130); Glucose 100 mg/dL (65-115); Osmolality Calculated 270 mOsm/kg (285-295); Sodium 127 mmol/L (136-145)
[2023-11-07 00:46] LABS: Creatinine Clr Calc Pharmacy 32.5104
[2023-11-07 00:47] LABS: Anion Gap 18.3 (5-19); Potassium 5.3 mmol/L (3.5-5.1)
[2023-11-07] MEDS: sodium chloride 0.9% 1,000 ML 75 ML IV ×2 (03:03→20:58)
[2023-11-07] MEDS: hyDROXYzine 25 mg Capsule 50 MG PO (03:03)
[2023-11-07 06:28] LABS: Glucose Point of Care 120 mg/dL (70-110)
[2023-11-07 06:43] LABS: Alanine Aminotransferase 13 U/L (0-33); Albumin Level 3.7 g/dL (3.5-5.2); Alkaline Phosphatase 51 U/L (35-105); Aspartate Amino Transferase 16 U/L (0-32); Blood Urea Nitrogen 28 mg/dL (6-20); Carbon Dioxide 16 mmol/L (22-29); Chloride 97 mmol/L (98-107); Glomerular Filtration Rate 25.6 mL/min (90-130); Glucose 112 mg/dL (65-115); Osmolality Calculated 268 mOsm/kg (285-295); Sodium 126 mmol/L (136-145); Total Bilirubin 0.3 mg/dL (0.15-1.2); Total Protein 6.7 g/dL (6.6-8.7)
[2023-11-07 06:49] LABS: Anion Gap 17.9 (5-19); Potassium 4.9 mmol/L (3.5-5.1)
[2023-11-07] MEDS: metoprolol tartrate 50 mg Tablet PO ×2 (08:22→21:00)
[2023-11-07] MEDS: fenofibrate 145 mg Tablet PO (08:22)
[2023-11-07] MEDS: aspirin 81 mg EC Tablet PO (08:22)
[2023-11-07] MEDS: clopidogrel 75 mg Tablet PO (08:22)
[2023-11-07] MEDS: heparin 5,000 unit/mL INJ 1 mL 5000 UNIT SUBCUT ×2 (08:23→21:00)
--- NOTE | 2023-11-07 09:02 | PC.PHAR ---
PT HAS SEVERAL NEW MEDICATION CHANGES. PT IS CONCERNED THAT SHE ONLY GOT A FEW PILLS THIS MORNING, INSTEAD OF HER USUAL 12 TO 13 PILLS.
--- NOTE | 2023-11-07 09:25 | PC.CHAP ---
Pastoral Care Encounter/Spiritual Assessment Type of Contact [] Declined route salesman visit [] Patient/Family/Request visit [] Outpatient visit [] Follow-up visit [] Physician referral [] Code/Alert [] Routine visit [] Staff referral [] Actively dying [] Patient sleeping [] Family support [] [] Out of room [] Palliative care [] [] Receiving care in room [] Pre-surgical visit [] Trauma [] Long length of stay [] ICU visit [x] Other:Contact precautions. No visit. Relational/Emotional Strength [] Patient feels connected with others/family/visitors/staff [] Distress [] Loneliness/isolation [] Abandonment Spirituality of Patient [] Person of Gretchen [] Attends Christian of their Gretchen [] Believes in Prayer [] Reads Bible or Hindu materials [] There are Spiritual issues to be addressed Bariatric Coordinator Interventions [] Prayer [] Active listening [] Non-anxious presence [] Spiritual/emotional support [] Crisis/trauma care [] Spiritual counseling [] Bereavement support [] Provided bereavement packet [] Provided Bible/devotional materials [] Provided toy/stuffed animal, coloring book to patient or family member [] Provided Communion [] Anointing/[place] [] Salvation [] Completed spiritual assessment [] Other: Impact on Illness or Injury [] Angry [] Fearful [] Anxious [] Often cries [] Exhaustion [] Unable to work [] Unable to attend anabaptist [] Unable to walk/stand [] Unable to read [] Unable to drive [] Unable to eat/drink [] Unable to sleep [] Unable to be with family [] Patient intubated [] Other: Summary Time spent with patient
[2023-11-07 11:01] LABS: Glucose Point of Care 213 mg/dL (70-110)
--- NOTE | 2023-11-07 11:11 | P.PN_ITS ---
Subjective 2 Subjective: Marijuana positive Sodium 126, creatinine improving Currently on IV fluids Patient able to get up walk to the bathroom Patient is endorsing that she is not liking the fact that there are a lot of people in her house, they have 7 dogs, 5 people, stating that her daughter is living with a girlfriend and then girlfriend has a friend who is living in their house with family She is used to being independent She is not endorsing any physical abuse, stating that her daughter has not been very nice to her and verbalize very mean statements which hurt her badly She is not endorsing active suicidal plans stating that she made the statement out of frustration that she has lived with so many people Patient is stating that she has a car on her credit which she is paying, She drives sometimes, close for herself, Vitals/I&O/Wt Last Vital Signs Temp 98.4 F 11/07/23 08:00 Pulse 69 11/07/23 08:25 Resp 16 11/07/23 08:25 BP 173/94 11/07/23 08:00 Pulse Ox 94 11/07/23 08:25 O2 Del Method Room Air 11/07/23 08:25 11/06/23 11/07/23 11/07/23 22:59 06:59 14:59 Intake Total 1250 / 1250 560 / 1810 240 / 240 Output Total 0 / 0 500 / 500 Balance 1250 / 1250 60 / 1310 240 / 240 Weight last 48 hrs Weight 87.362 kg Weight 81.647 kg Physical Exam 2 Narrative: Awake and alert Signs of dehydration present Pleasant cooperative nonfocal neuroexam GCS 15 Awake Pleasant cooperative S1, S2 Mild signs of dehydration Hemodynamically stable Hypertensive Data 11/06/23 18:53 11/07/23 06:08 A&P Assessment and plan (1) Marijuana user: (2) PTSD (post-traumatic stress disorder): (3) Major depressive disorder, recurrent: (4) Suicidal ideation: (5) Hypertension: Qualifiers: Hypertension type: essential hypertension Qualified Code(s): I10 - Essential (primary) hypertension (6) H/O heart artery stent: (7) Diabetes mellitus with hyperglycemia, with long-term current use of insulin: (8) GERD (gastroesophageal reflux disease): Qualifiers: Esophagitis presence: esophagitis presence not specified Qualified Code(s): K21.9 - Gastro-esophageal reflux disease without esophagitis (9) Acute kidney injury: (10) Hyperkalemia: (11) COPD (chronic obstructive pulmonary disease): Qualifiers: COPD type: unspecified COPD Qualified Code(s): J44.9 - Chronic obstructive pulmonary disease, unspecified (12) Other stressful life events affecting family and household: Plan I would like to keep patient on medical floor until her sodium is 130 Sodium needs to be monitored because it is 126 today, patient has been on antipsychotic, currently looks dehydrated, YARITZA: Improving with IV fluid hydration Hyperkalemia: Improved No active suicidal plans, patient is stating that she made those statements out of frustration because she is sick of living with so many people in the house and 7 dogs Patient has history of diabetes, coronary disease and hypertension Adjust medications patient is currently hypertensive, no active chest pain, poorly controlled diabetes, no active chest pain Check A1c level previous 1 was above 10 Suicidal thoughts: 96-hour hold Will follow-up with Dr. Avendano Full code DVT prophylaxis on board Currently on aspirin and Plavix On cardiac diet I will change to consistent carb add Lantus as well Attestations 2 Medical Necessity Statement*: Continue medical management Diagnoses Marijuana user F12.90 PTSD (post-traumatic stress disorder) F43.10 Major depressive disorder, recurrent F33.9 Suicidal ideation R45.851 Essential hypertension I10 Hypertension type: essential hypertension H/O heart artery stent Z95.5 Type 2 diabetes mellitus with hyperglycemia, with long-term current use of insulin E11.65; Z79.4 Gastroesophageal reflux disease, esophagitis presence not specified K21.9 Esophagitis presence: esophagitis presence not specified Acute kidney injury N17.9 Hyperkalemia E87.5 Chronic obstructive pulmonary disease, unspecified COPD type J44.9 COPD type: unspecified COPD Other stressful life events affecting family and household Z63.79
[2023-11-07] MEDS: insulin lispro 100 unit/1 mL SUBCUT ×3 (11:57→21:00)
[2023-11-07 12:07] LABS: Estmated Average Glucose 186; Hemoglobin A1C 8.1 % (4.0-6.0)
[2023-11-07] MEDS: acetaminophen 325 mg Tablet 650 MG PO ×2 (14:58→21:03)
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
[2023-11-07 16:41] LABS: Glucose Point of Care 194 mg/dL (70-110)
[2023-11-07] MEDS: escitalopram 10 mg Tablet 20 MG PO (17:37)
[2023-11-07] MEDS: OLANZapine 10 mg TABLET 20 MG PO (17:37)
[2023-11-07] MEDS: ondansetron 2 mg/ML SDV 2 mL 4 MG IVP (19:44)
[2023-11-07 20:29] LABS: Glucose Point of Care 210 mg/dL (70-110)
[2023-11-07] MEDS: insulin glargine 100 units/1 mL 30 UNIT SUBCUT (21:01)
[2023-11-07] MEDS: trazodone 100 mg Tablet 150 MG PO (21:01)
[2023-11-08] VITALS (8 sets, daily range): BP systolic 100–151; BP diastolic 71–96; PULSE 70–96; RESP 15–18; TEMP 37–37.3; O2SAT 93–100
[2023-11-08 06:31] LABS: Glucose Point of Care 111 mg/dL (70-110)
[2023-11-08 06:49] LABS: Basophils % 0.4 %; Eosinophils # 0.1 10^3/uL (0.0-0.8); Eosinophils % 1.6 %; Hematocrit 37.5 % (36-47); Lymphocytes # 2.8 10^3/uL (0.8-4.8); Lymphocytes % 33.8 %; Mean Corpuscular HGB Conc 32.8 g/dL (30-55); Mean Corpuscular Hemoglobin 29.1 pg (27-33); Mean Corpuscular Volume 88.9 fl (85-98); Mean Platelet Volume 9.3 fL (7.4-10.4); Monocytes # 0.4 10^3/uL (0.2-0.9); Monocytes % 4.5 %; Neutrophils # 4.92 10^3/uL (1.8-7.7); Neutrophils % 59.5 %; Nucleated Red Blood Cells % 0 %; Platelet Count 451 10^3/cmm (157-399); Red Blood Count 4.22 10^6/uL (3.85-5.65); Red Cell Distribution Width 12.9 % (12.1-15.1); White Blood Count 8.26 10^3/uL (3.29-11.43)
[2023-11-08 07:09] LABS: Anion Gap 16.7 (5-19); Blood Urea Nitrogen 19 mg/dL (6-20); Calcium 9.3 mg/dL (8.5-10.5); Carbon Dioxide 19 mmol/L (22-29); Chloride 102 mmol/L (98-107); Creatinine Clr Calc Pharmacy 40.5319; Glomerular Filtration Rate 30.9 mL/min (90-130); Glucose 109 mg/dL (65-115); Osmolality Calculated 279 mOsm/kg (285-295); Potassium 4.7 mmol/L (3.5-5.1); Sodium 133 mmol/L (136-145)
[2023-11-08] MEDS: ondansetron 2 mg/ML SDV 2 mL 4 MG IVP (08:51)
[2023-11-08] MEDS: clopidogrel 75 mg Tablet PO (08:52)
[2023-11-08] MEDS: aspirin 81 mg EC Tablet PO (08:52)
[2023-11-08] MEDS: metoprolol tartrate 50 mg Tablet PO ×2 (08:52→20:55)
[2023-11-08] MEDS: OLANZapine 10 mg TABLET 20 MG PO ×2 (08:52→17:17)
[2023-11-08] MEDS: fenofibrate 145 mg Tablet PO (08:52)
[2023-11-08] MEDS: heparin 5,000 unit/mL INJ 1 mL 5000 UNIT SUBCUT ×2 (08:52→20:55)
[2023-11-08] MEDS: sodium chloride 0.9% 1,000 ML 75 ML IV ×2 (10:31→23:30)
--- NOTE | 2023-11-08 10:46 | PC.SOCIAL ---
IMM Updated Updated pt on IMM. No questions voiced. Provided pt a copy. Initialed, dated, & timed a copy & placed in chart.
--- NOTE | 2023-11-08 10:54 | P.PN_ITS ---
Subjective 2 Subjective: Patient is stating that she is allergic to Protonix every time she just returned and she gets vomiting, she had 2 episode of emesis this morning No abdominal pain, no active dysuria No fever Electrolytes getting better Patient asked me when can we transfer her to neuropsychiatric unit I told her that if she does not not vomit after eating lunch or dinner there is a possibility we can transfer her later today versus tomorrow morning Vitals/I&O/Wt Last Vital Signs Temp 99.2 F 11/08/23 07:24 Pulse 70 11/08/23 09:00 Resp 16 11/08/23 09:00 BP 151/96 11/08/23 07:24 Pulse Ox 93 11/08/23 09:00 O2 Del Method Room Air 11/08/23 09:00 11/07/23 11/08/23 11/08/23 22:59 06:59 14:59 Intake Total 1720 / 2200 240 / 2440 1120 / 1120 Output Total 2000 / 2700 500 / 3200 300 / 300 Balance -280 / -500 -260 / -760 820 / 820 Weight last 48 hrs Weight 88.995 kg Weight 87.362 kg Weight 81.647 kg Physical Exam 2 Narrative: Signs of dehydration improving Pleasant cooperative Nonfocal neuroexam GCS 15 No abdominal tenderness on palpation Is uncooperative S1, S2 Hypertensive Data 11/08/23 06:42 11/08/23 06:42 A&P Assessment and plan (1) Marijuana user: (2) PTSD (post-traumatic stress disorder): (3) Major depressive disorder, recurrent: (4) Hallucinations: (5) Suicidal ideation: (6) Hypertension: Qualifiers: Hypertension type: essential hypertension Qualified Code(s): I10 - Essential (primary) hypertension (7) CAD (coronary artery disease): Qualifiers: Coronary Disease-Associated Artery/Lesion type: [place] artery [place] vs. transplanted heart: [place] heart Associated angina: with unstable angina Qualified Code(s): I25.110 - Atherosclerotic heart disease of [place] coronary artery with unstable angina pectoris (8) H/O heart artery stent: (9) Diabetes mellitus with hyperglycemia, with long-term current use of insulin: (10) GERD (gastroesophageal reflux disease): Qualifiers: Esophagitis presence: esophagitis presence not specified Qualified Code(s): K21.9 - Gastro-esophageal reflux disease without esophagitis (11) Acute kidney injury: (12) Hypokalemia: (13) COPD (chronic obstructive pulmonary disease): Qualifiers: COPD type: unspecified COPD Qualified Code(s): J44.9 - Chronic obstructive pulmonary disease, unspecified (14) Nicotine dependence, cigarettes, uncomplicated: Plan My plan is to transfer her to neuropsychiatric unit later today if she does not vomit versus tomorrow morning Electrolytes are improving She is still hypertensive Will add amlodipine and continue metoprolol, add hydralazine YARITZA: Improving with IV fluid hydration DVT prophylaxis heparin Consistent carb diet with insulin sliding scale Hemoglobin A1c is 8.1 she does not need insulin at the time of discharge Attestations 2 Medical Necessity Statement*: Continue medical management Diagnoses Marijuana user F12.90 PTSD (post-traumatic stress disorder) F43.10 Major depressive disorder, recurrent F33.9 Hallucinations R44.3 Suicidal ideation R45.851 Essential hypertension I10 Hypertension type: essential hypertension Coronary artery disease involving [place] coronary artery of [place] heart with unstable angina pectoris I25.110 Coronary Disease-Associated Artery/Lesion type: [place] artery [place] vs. transplanted heart: [place] heart Associated angina: with unstable angina H/O heart artery stent Z95.5 Type 2 diabetes mellitus with hyperglycemia, with long-term current use of insulin E11.65; Z79.4 Gastroesophageal reflux disease, esophagitis presence not specified K21.9 Esophagitis presence: esophagitis presence not specified Acute kidney injury N17.9 Hypokalemia E87.6 Chronic obstructive pulmonary disease, unspecified COPD type J44.9 COPD type: unspecified COPD Nicotine dependence, cigarettes, uncomplicated F17.210
[2023-11-08 11:25] LABS: Glucose Point of Care 190 mg/dL (70-110)
[2023-11-08] MEDS: insulin lispro 100 unit/1 mL SUBCUT ×2 (11:49→20:54)
[2023-11-08] MEDS: nicotine 14 mg Patch 1 PATCH TRANSDERMA (11:49)
[2023-11-08] MEDS: amlodipine 10 mg Tablet PO (11:49)
[2023-11-08 17:16] LABS: Glucose Point of Care 113 mg/dL (70-110)
[2023-11-08] MEDS: escitalopram 10 mg Tablet 20 MG PO (17:17)
[2023-11-08] MEDS: hyDRALAzine 25 mg Tablet PO (17:17)
--- NOTE | 2023-11-08 19:38 | P.NPUPN_ITS ---
Subjective NPU 2 Subjective: Patient presented today reporting she has been throwing up and will not be tranfered today due to medical concerns. She denied any changes or improvements. She denied any side effects to her medications. Mental Status Exam 2 MSE Comments: This is an obese white female looking older than her stated age in hospital gown with limited grooming and adequate eye contact. No abnormal movements except for psychomotor agitation with constant rocking. Mostly cooperative with exam in mild to moderate distress. Speech was decreased rate and volume. Mood described as depressed, affect subdued. Thought process organized. Thought content: Patient endorsed suicidal but denied homicidal ideations, there were no delusions reported or noted, she denied any auditory or visual hallucinations. Attention and concentration appeared intact and memory was mostly reliable but none were formally tested. She is alert and oriented x3. Insight and judgment are limited, and impulse control is impaired. Vitals/I&O/Wt Last Vital Signs Temp 99.1 F 11/08/23 19:22 Pulse 81 11/08/23 19:22 Resp 17 11/08/23 19:22 BP 119/81 11/08/23 19:22 Pulse Ox 97 11/08/23 19:22 O2 Del Method Room Air 11/08/23 15:31 11/08/23 11/08/23 11/08/23 06:59 14:59 22:59 Intake Total 240 / 2440 1480 / 1480 360 / 1840 Output Total 500 / 3200 300 / 300 Balance -260 / -760 1180 / 1180 360 / 1540 Weight last 48 hrs Weight 88.995 kg Weight 87.362 kg Data NPU 11/08/23 06:42 11/09/23 05:50 A&P Assessment and plan (1) Psychotic disorder: (2) PTSD (post-traumatic stress disorder): (3) Major depressive disorder, recurrent: (4) Methamphetamine use disorder, severe: (5) Diabetes mellitus with hyperglycemia, with long-term current use of insulin: (6) H/O heart artery stent: (7) Suicidal ideation: (8) Chest pain: (9) Nicotine dependence, cigarettes, uncomplicated: Plan This is a 58-year-old white female with a long history of mental health and addiction issues well-known to the neuropsychiatric unit from past hospitalizations generally with suicidality who presents again with suicidal ideation and UDS positive for THC. 1.? Continue current medications. 2.? Continue 1 to 1 while on Medsurg 3.? Encourage individual, group and milieu therapies once on unit. 4. Encourage sober living treatment after discharge at the highest level of care to which she is willing to commit. 5. Transfer to NPU when medically cleared. Involuntary Hold Information 2 96 Hour Hold: 96 Hour Involuntary Admission: Yes Attestations NPU 2 Medical Necessity Statement*: N/A. Please see primary team note for medical necessity but agree with transfer to the neuropsychiatric unit when medically cleared. Coding Level of Care Code Acute Code for Chg Fwd Diagnoses Psychotic disorder F29 PTSD (post-traumatic stress disorder) F43.10 Major depressive disorder, recurrent F33.9 Methamphetamine use disorder, severe F15.20 Type 2 diabetes mellitus with hyperglycemia, with long-term current use of insulin E11.65; Z79.4 H/O heart artery stent Z95.5 Suicidal ideation R45.851 Chest pain R07.9 Nicotine dependence, cigarettes, uncomplicated F17.210
[2023-11-08 20:18] LABS: Glucose Point of Care 156 mg/dL (70-110)
[2023-11-08] MEDS: insulin glargine 100 units/1 mL 30 UNIT SUBCUT (20:54)
[2023-11-08] MEDS: famotidine 20 mg/2 mL INJ IVP (20:55)
[2023-11-08] MEDS: trazodone 100 mg Tablet 150 MG PO (20:55)
[2023-11-09] VITALS (9 sets, daily range): BP systolic 110–154; BP diastolic 77–87; PULSE 68–88; RESP 15–18; TEMP 36.8–37.6; O2SAT 92–99
[2023-11-09 06:28] LABS: Glucose Point of Care 82 mg/dL (70-110)
[2023-11-09 06:36] LABS: Anion Gap 14.1 (5-19); Blood Urea Nitrogen 13 mg/dL (6-20); Calcium 9.3 mg/dL (8.5-10.5); Carbon Dioxide 19 mmol/L (22-29); Chloride 109 mmol/L (98-107); Glomerular Filtration Rate 33.1 mL/min (90-130); Glucose 85 mg/dL (65-115); Osmolality Calculated 285 mOsm/kg (285-295); Potassium 4.1 mmol/L (3.5-5.1); Sodium 138 mmol/L (136-145)
[2023-11-09 06:37] LABS: Creatinine Clr Calc Pharmacy 43.1748
[2023-11-09] MEDS: nicotine 14 mg Patch 1 PATCH TRANSDERMA (08:55)
[2023-11-09] MEDS: metoprolol tartrate 50 mg Tablet PO (08:56)
[2023-11-09] MEDS: OLANZapine 10 mg TABLET 20 MG PO ×2 (08:57→17:23)
[2023-11-09] MEDS: clopidogrel 75 mg Tablet PO (08:58)
[2023-11-09] MEDS: hyDRALAzine 25 mg Tablet PO ×2 (08:58→17:23)
[2023-11-09] MEDS: fenofibrate 145 mg Tablet PO (08:59)
[2023-11-09] MEDS: amlodipine 10 mg Tablet PO (08:59)
[2023-11-09] MEDS: aspirin 81 mg EC Tablet PO (08:59)
[2023-11-09] MEDS: heparin 5,000 unit/mL INJ 1 mL 5000 UNIT SUBCUT (09:00)
[2023-11-09] MEDS: famotidine 20 mg/2 mL INJ IVP (09:00)
--- NOTE | 2023-11-09 10:31 | P.PN_ITS ---
Subjective 2 Subjective: Patient can be transferred to psych unit today BMP showing improvement in creatinine She is not vomiting today Vitals/I&O/Wt Last Vital Signs Temp 99.2 F 11/09/23 07:23 Pulse 71 11/09/23 08:36 Resp 16 11/09/23 08:36 BP 130/84 11/09/23 07:23 Pulse Ox 92 11/09/23 08:36 O2 Del Method Room Air 11/09/23 08:36 11/08/23 11/09/23 11/09/23 22:59 06:59 14:59 Intake Total 480 / 1960 1213.75 / 3173.75 Output Total 200 / 500 100 / 100 Balance 280 / 1460 1213.75 / 2673.75 -100 / -100 Weight last 48 hrs Weight 89.448 kg Weight 88.995 kg Physical Exam 2 Narrative: Pleasant cooperative and sitting in her bed Hemodynamic stable Currently room air Nonfocal neuroexam abdomen soft S1, S2 Data 11/08/23 06:42 11/09/23 05:50 A&P Assessment and plan (1) PTSD (post-traumatic stress disorder): (2) Major depressive disorder, recurrent: (3) Suicidal ideation: (4) Hypertension: Qualifiers: Hypertension type: essential hypertension Qualified Code(s): I10 - Essential (primary) hypertension (5) Diabetes mellitus with hyperglycemia, with long-term current use of insulin: (6) GERD (gastroesophageal reflux disease): Qualifiers: Esophagitis presence: esophagitis presence not specified Qualified Code(s): K21.9 - Gastro-esophageal reflux disease without esophagitis (7) Acute kidney injury: (8) Hypokalemia: (9) COPD (chronic obstructive pulmonary disease): Qualifiers: COPD type: unspecified COPD Qualified Code(s): J44.9 - Chronic obstructive pulmonary disease, unspecified (10) Nicotine dependence, cigarettes, uncomplicated: Plan Signs of dehydration improved significantly IV fluids can be discontinued when patient tolerating diet No vomiting today Creatinine improving gradually Electrolytes replenished Patient will be transferred to psych unit today Medicine will follow along Attestations 2 Medical Necessity Statement*: Transfer to psych unit today Diagnoses PTSD (post-traumatic stress disorder) F43.10 Major depressive disorder, recurrent F33.9 Suicidal ideation R45.851 Essential hypertension I10 Hypertension type: essential hypertension Type 2 diabetes mellitus with hyperglycemia, with long-term current use of insulin E11.65; Z79.4 Gastroesophageal reflux disease, esophagitis presence not specified K21.9 Esophagitis presence: esophagitis presence not specified Acute kidney injury N17.9 Hypokalemia E87.6 Chronic obstructive pulmonary disease, unspecified COPD type J44.9 COPD type: unspecified COPD Nicotine dependence, cigarettes, uncomplicated F17.210
[2023-11-09 11:41] LABS: Glucose Point of Care 147 mg/dL (70-110)
[2023-11-09] MEDS: insulin lispro 100 unit/1 mL SUBCUT ×2 (12:16→20:51)
[2023-11-09] MEDS: escitalopram 10 mg Tablet 20 MG PO (17:23)
--- NOTE | 2023-11-09 17:33 | W.PM.NPUPNS ---
Subjective NPU Subjective: Patient presented today reporting that she is doing better. Mostly because she is not going to be on MedSurg any longer. She endorsed a willingness to transfer down and try to figure out ways to feel better overall. We discussed reviewing her medications and considering which ones may have contributed to the hyponatremia as well as considering how she is feeling but would be the best direction to go from now. She denies any side effects to her current medications but reports not really knowing what to do because things just seem frustrating. Mental Status Exam MSE Comments: This is an obese white female looking older than her stated age in hospital gown with limited grooming and adequate eye contact. No abnormal movements except for psychomotor agitation with constant rocking. Mostly cooperative with exam in mild to moderate distress. Speech was decreased rate and volume. Mood described as depressed, affect subdued. Thought process organized. Thought content: Patient endorsed suicidal but denied homicidal ideations, there were no delusions reported or noted, she denied any auditory or visual hallucinations. Attention and concentration appeared intact and memory was mostly reliable but none were formally tested. She is alert and oriented x3. Insight and judgment are limited, and impulse control is impaired. Vitals/I&O/Wt Last Vital Signs Temp 98.5 F 11/09/23 14:00 Pulse 87 11/09/23 14:00 Resp 16 11/09/23 14:00 BP 134/78 11/09/23 14:00 Pulse Ox 98 11/09/23 14:00 O2 Del Method Room Air 11/09/23 14:00 11/09/23 11/09/23 11/09/23 06:59 14:59 22:59 Intake Total 1213.75 / 3173.75 480 / 480 Output Total 100 / 100 Balance 1213.75 / 2673.75 380 / 380 Weight last 48 hrs Weight 89.448 kg Weight 88.995 kg Data NPU 11/08/23 06:42 11/09/23 05:50 A&P Assessment and plan (1) Psychotic disorder: (2) PTSD (post-traumatic stress disorder): (3) Major depressive disorder, recurrent: (4) Methamphetamine use disorder, severe: (5) Diabetes mellitus with hyperglycemia, with long-term current use of insulin: (6) H/O heart artery stent: (7) Suicidal ideation: (8) Chest pain: (9) Nicotine dependence, cigarettes, uncomplicated: Plan This is a 58-year-old white female with a long history of mental health and addiction issues well-known to the neuropsychiatric unit from past hospitalizations generally with suicidality who presents again with suicidal ideation and UDS positive for THC. 1.? Continue current medications. Will examine which medications have been held and restart with eye on concerns for hyponatremia. 2.? Initiate every 15 minute checks for safety 3.? Encourage individual, group and milieu therapies once on unit. 4. Encourage sober living treatment after discharge at the highest level of care to which she is willing to commit. 5. Transfer to NPU Involuntary Hold Information 96 Hour Hold: 96 Hour Involuntary Admission: Yes 96 Hour Hold Ending Date: 11/10/23 96 Hour Hold Ending Time: 18:45 Attestations NPU Medical Necessity Statement*: Inpatient psychiatric hospitalization is medically necessary and the clinically appropriate intervention at this time. We will monitor medications and make changes as indicated. She will be in the hospital over 2 midnights. Likely length of stay 4 to 6 days. Coding Level of Care Code Acute Code for [facility] Fwd Diagnoses Psychotic disorder F29 PTSD (post-traumatic stress disorder) F43.10 Major depressive disorder, recurrent F33.9 Methamphetamine use disorder, severe F15.20 Type 2 diabetes mellitus with hyperglycemia, with long-term current use of insulin E11.65; Z79.4 H/O heart artery stent Z95.5 Suicidal ideation R45.851 Chest pain R07.9 Nicotine dependence, cigarettes, uncomplicated F17.210
[2023-11-09 17:39] LABS: Glucose Point of Care 85 mg/dL (70-110)
[2023-11-09 20:25] LABS: Glucose Point of Care 148 mg/dL (70-110)
[2023-11-09] MEDS: insulin glargine 100 units/1 mL 30 UNIT SUBCUT (20:50)
[2023-11-09] MEDS: trazodone 100 mg Tablet 150 MG PO (20:53)
[2023-11-10 06:00] VITALS: BP 126/81; PULSE 92; RESP 16; TEMP 36.8; O2SAT 99
[2023-11-10 08:06] LABS: Glucose Point of Care 144 mg/dL (70-110)
[2023-11-10] MEDS: famotidine 20 mg Tablet PO ×2 (08:18→17:35)
[2023-11-10] MEDS: hyDRALAzine 25 mg Tablet PO ×2 (08:19→17:35)
[2023-11-10] MEDS: amlodipine 10 mg Tablet PO (08:19)
[2023-11-10] MEDS: OLANZapine 10 mg TABLET 20 MG PO ×2 (08:19→17:35)
[2023-11-10] MEDS: aspirin 81 mg EC Tablet PO (08:19)
[2023-11-10] MEDS: insulin lispro 100 unit/1 mL SUBCUT ×3 (08:19→20:57)
[2023-11-10] MEDS: metoprolol tartrate 50 mg Tablet PO (08:19)
[2023-11-10] MEDS: clopidogrel 75 mg Tablet PO (08:19)
[2023-11-10] MEDS: nicotine 14 mg Patch 1 PATCH TRANSDERMA (08:43)
[2023-11-10 09:00] VITALS: PULSE 81; RESP 16; O2SAT 95
[2023-11-10 12:04] LABS: Glucose Point of Care 196 mg/dL (70-110)
[2023-11-10 14:00] VITALS: BP 128/94; PULSE 95; RESP 20; TEMP 37.2; O2SAT 98
--- NOTE | 2023-11-10 14:32 | P.NPUPN_ITS ---
Subjective NPU 2 Subjective: Patient presented today reporting that she is feeling okay. She reports that when she came to the hospital she was feeling unwell overall which now she feels was definitely secondary to her hyponatremia and elevated potassium. She reports that she feels significantly better now that those have been managed. We discussed that the Thorazine was likely held secondary to concerns that might have been contributing to the electrolyte imbalance. We discussed that Dr. Quiles will be here tomorrow and at this point we will not add or resume any of the medication that has been stopped but he will be able to make any final decisions prior to discharge likely early next week. Mental Status Exam 2 MSE Comments: This is an obese white female looking older than her stated age in hospital gown with limited grooming and adequate eye contact. No abnormal movements except for psychomotor agitation with constant rocking. Mostly cooperative with exam in mild to moderate distress. Speech was decreased rate and volume. Mood described as depressed, affect subdued. Thought process organized. Thought content: Patient endorsed suicidal but denied homicidal ideations, there were no delusions reported or noted, she denied any auditory or visual hallucinations. Attention and concentration appeared intact and memory was mostly reliable but none were formally tested. She is alert and oriented x3. Insight and judgment are limited, and impulse control is impaired. Vitals/I&O/Wt Last Vital Signs Temp 98.3 F 11/10/23 06:00 Pulse 81 11/10/23 09:00 Resp 16 11/10/23 09:00 BP 126/81 11/10/23 06:00 Pulse Ox 95 11/10/23 09:00 O2 Del Method Room Air 11/10/23 09:00 Weight last 48 hrs Weight 89.448 kg Data NPU 11/08/23 06:42 11/09/23 05:50 A&P Assessment and plan (1) Psychotic disorder: (2) PTSD (post-traumatic stress disorder): (3) Major depressive disorder, recurrent: (4) Methamphetamine use disorder, severe: (5) Diabetes mellitus with hyperglycemia, with long-term current use of insulin: (6) H/O heart artery stent: (7) Suicidal ideation: (8) Chest pain: (9) Nicotine dependence, cigarettes, uncomplicated: Plan This is a 58-year-old white female with a long history of mental health and addiction issues well-known to the neuropsychiatric unit from past hospitalizations generally with suicidality who presents again with suicidal ideation and UDS positive for THC. 1.? Continue current medications. Will examine which medications have been held and restart with eye on concerns for hyponatremia. 2.? Initiate every 15 minute checks for safety 3.? Encourage individual, group and milieu therapies once on unit. 4. Encourage sober living treatment after discharge at the highest level of care to which she is willing to commit. 5. Transferred to NPU Involuntary Hold Information 2 96 Hour Hold: 96 Hour Involuntary Admission: Yes 96 Hour Hold Ending Date: 11/10/23 96 Hour Hold Ending Time: 18:45 Attestations NPU 2 Medical Necessity Statement*: Inpatient psychiatric hospitalization is medically necessary and the clinically appropriate intervention at this time. We will monitor medications and make changes as indicated. Likely length of stay 3-5 days. Coding Level of Care Code Acute Code for [facility] Fwd Diagnoses Psychotic disorder F29 PTSD (post-traumatic stress disorder) F43.10 Major depressive disorder, recurrent F33.9 Methamphetamine use disorder, severe F15.20 Type 2 diabetes mellitus with hyperglycemia, with long-term current use of insulin E11.65; Z79.4 H/O heart artery stent Z95.5 Suicidal ideation R45.851 Chest pain R07.9 Nicotine dependence, cigarettes, uncomplicated F17.210
[2023-11-10 17:07] LABS: Glucose Point of Care 133 mg/dL (70-110)
[2023-11-10] MEDS: escitalopram 10 mg Tablet 20 MG PO (17:35)
[2023-11-10 20:11] LABS: Glucose Point of Care 259 mg/dL (70-110)
[2023-11-10] MEDS: insulin glargine 100 units/1 mL 30 UNIT SUBCUT (20:57)
[2023-11-10] MEDS: trazodone 100 mg Tablet 150 MG PO (20:58)
[2023-11-10] MEDS: acetaminophen 325 mg Tablet 650 MG PO (21:03)
[2023-11-10 21:48] VITALS: BP 134/82; PULSE 95; RESP 18; TEMP 37.3; O2SAT 95
[2023-11-11 06:00] VITALS: BP 111/82; PULSE 109; RESP 18; TEMP 36.6; O2SAT 99
[2023-11-11 07:28] LABS: Glucose Point of Care 148 mg/dL (70-110)
--- NOTE | 2023-11-11 08:37 | PC.NURSE ---
During admission assessment, patient denies SI, HI, AVH, depression and anxiety. Patient states that she slept well last night. Patient endorses moderate back pain.
[2023-11-11] MEDS: aspirin 81 mg EC Tablet PO (08:43)
[2023-11-11] MEDS: OLANZapine 10 mg TABLET 20 MG PO (08:43)
[2023-11-11] MEDS: hyDRALAzine 25 mg Tablet PO ×2 (08:43→17:47)
[2023-11-11] MEDS: acetaminophen 325 mg Tablet 650 MG PO (08:43)
[2023-11-11] MEDS: amlodipine 10 mg Tablet PO (08:43)
[2023-11-11] MEDS: clopidogrel 75 mg Tablet PO (08:43)
[2023-11-11] MEDS: famotidine 20 mg Tablet PO ×2 (08:43→17:47)
[2023-11-11] MEDS: insulin lispro 100 unit/1 mL SUBCUT ×4 (08:44→20:20)
[2023-11-11] MEDS: metoprolol tartrate 50 mg Tablet PO ×2 (08:49→20:16)
[2023-11-11] MEDS: nicotine 14 mg Patch 1 PATCH TRANSDERMA (08:49)
[2023-11-11] MEDS: hyDROXYzine 25 mg Capsule 50 MG PO ×2 (09:22→19:09)
--- NOTE | 2023-11-11 09:23 | PC.NURSE ---
Patient rates anxiety 6/10, states cause is unknown, says that she gets this way sometimes. Administered vistaril 50mg PO to patient.
[2023-11-11] MEDS: haloperidol 5 mg Tablet PO ×2 (10:22→16:44)
--- NOTE | 2023-11-11 10:23 | PC.NURSE ---
Patient reporting anxiety 11/21. administered haldol 5mg PO. Patient unable to determine cause of anxiety. Patient encouraged to utilize coping skills. understanding verbalized.
[2023-11-11 11:41] LABS: Glucose Point of Care 171 mg/dL (70-110)
--- NOTE | 2023-11-11 12:18 | P.NPUPN_ITS ---
Subjective NPU 2 Subjective: 58-year-old female with a history of psy chosis along with a past history of methamphetamine dependence depression and suicidal ideation. She had continued to report feeling depressed but did not state that she was feeling suicidal. She had expressed that she had continued to hear voices. She had reported that she was having problems with managing her anxiety and stated that nothing had helped her. She had minimized any PTSD symptoms. She had continued to endorse depressed mood and low energy. She had isolated herself on the milieu. Patient presented today reporting that she is feeling okay. Mental Status Exam 2 MSE Comments: This is an obese white female looking older than her stated age in hospital gown with limited grooming and adequate eye contact. No abnormal movements except for psychomotor agitation with constant rocking. Mostly cooperative with exam in mild to moderate distress. Speech was decreased in rate and volume. Mood described as depressed, affect was odd and subdued. Thought process was linear and organized. Thought content: Patient endorsed suicidal but denied homicidal ideation, There were no delusions reported or noted, she denied any auditory or visual hallucinations. Attention and concentration appeared intact and memory was mostly reliable but none were formally tested. She is alert and oriented x3. Insight is poor and judgment is limited, and impulse control is impaired. Vitals/I&O/Wt Last Vital Signs Temp 97.9 F 11/11/23 06:00 Pulse 109 H 11/11/23 06:00 Resp 18 11/11/23 06:00 BP 111/82 11/11/23 06:00 Pulse Ox 99 11/11/23 06:00 O2 Del Method Room Air 11/11/23 06:00 Data NPU 11/08/23 06:42 11/09/23 05:50 A&P Assessment and plan (1) Psychotic disorder: (2) PTSD (post-traumatic stress disorder): (3) Major depressive disorder, recurrent: (4) Methamphetamine use disorder, severe: (5) Diabetes mellitus with hyperglycemia, with long-term current use of insulin: (6) H/O heart artery stent: (7) Suicidal ideation: (8) Chest pain: (9) Nicotine dependence, cigarettes, uncomplicated: Plan This is a 58-year-old white female with a long history of mental health and addiction issues well-known to the neuropsychiatric unit from past hospitalizations generally with suicidality who presents again with suicidal ideation and UDS positive for THC. 1.? Began Taper of Olanzapine as current dose is high and not effective per patient. Continue lexapro as prescribed. 2.? Initiate every 15 minute checks for safety 3.? Encourage individual, group and milieu therapies once on unit. 4. Encourage sober living treatment after discharge at the highest level of care to which she is willing to commit. Involuntary Hold Information 2 96 Hour Hold: 96 Hour Involuntary Admission: Yes 96 Hour Hold Ending Date: 11/10/23 96 Hour Hold Ending Time: 18:45 Attestations NPU 2 Medical Necessity Statement*: Inpatient psychiatric hospitalization is medically necessary and the clinically appropriate intervention at this time. We will monitor medications and make changes as indicated. Likely length of stay 3-5 days. Coding Level of Care Code Acute Code for g Fwd Diagnoses Psychotic disorder F29 PTSD (post-traumatic stress disorder) F43.10 Major depressive disorder, recurrent F33.9 Methamphetamine use disorder, severe F15.20 Type 2 diabetes mellitus with hyperglycemia, with long-term current use of insulin E11.65; Z79.4 H/O heart artery stent Z95.5 Suicidal ideation R45.851 Chest pain R07.9 Nicotine dependence, cigarettes, uncomplicated F17.210
[2023-11-11 14:00] VITALS: BP 122/84; PULSE 80; RESP 16; TEMP 36.6; O2SAT 100
--- NOTE | 2023-11-11 15:16 | PC.NURSE ---
patient refused to have BMP drawn by lab. patient tearful, stating that she don't want nothing and told this nurse to leave. Attempts to educate patient on importance of lab work were unsuccessful.
--- NOTE | 2023-11-11 16:39 | PC.NURSE ---
Patient tearful, stating that she doesn't like the new doctor, Patient went on to say that the doctor is going to be changing her medications and she doesn't agree with this. This nurse attempted to educate patient on the doctor's reasoning, but patient stated that she did not want to talk to this nurse.
--- NOTE | 2023-11-11 16:45 | PC.NURSE ---
Patient at window, reports anxiety 02/21. Patient upset about the doctor. administered haldol 5mg PO. Patient states that vistaril does not help alleviate s/s of anxiety.
--- NOTE | 2023-11-11 17:12 | PM.MISC ---
Miscellaneous Note Note: Patient doing well No overnight events Patient future BMP Blood sugar under control We can request BMP for tomorrow which is monitoring creatinine function her creatinine was trending down with better p.o. intake No more episode of diarrhea or vomiting
[2023-11-11 17:26] LABS: Glucose Point of Care 176 mg/dL (70-110)
[2023-11-11] MEDS: OLANZapine 10 mg TABLET PO (17:47)
[2023-11-11] MEDS: escitalopram 10 mg Tablet 20 MG PO (17:48)
[2023-11-11 20:10] LABS: Glucose Point of Care 196 mg/dL (70-110)
[2023-11-11 20:12] LABS: Anion Gap 19.5 (5-19); Blood Urea Nitrogen 11 mg/dL (6-20); Calcium 10.2 mg/dL (8.5-10.5); Carbon Dioxide 19 mmol/L (22-29); Chloride 101 mmol/L (98-107); Creatinine Clr Calc Pharmacy 49.3426; Glomerular Filtration Rate 38.6 mL/min (90-130); Glucose 184 mg/dL (65-115); Osmolality Calculated 284 mOsm/kg (285-295); Potassium 4.5 mmol/L (3.5-5.1); Sodium 135 mmol/L (136-145)
[2023-11-11] MEDS: trazodone 100 mg Tablet 150 MG PO (20:16)
[2023-11-11] MEDS: insulin glargine 100 units/1 mL 30 UNIT SUBCUT (20:20)
[2023-11-12 06:00] VITALS: BP 117/80; PULSE 102; RESP 17; TEMP 37.1; O2SAT 98
[2023-11-12] MEDS: clopidogrel 75 mg Tablet PO (07:45)
[2023-11-12] MEDS: hyDRALAzine 25 mg Tablet PO ×2 (07:45→17:40)
[2023-11-12] MEDS: famotidine 20 mg Tablet PO ×2 (07:45→17:40)
[2023-11-12] MEDS: metoprolol tartrate 50 mg Tablet PO ×2 (07:45→21:31)
[2023-11-12] MEDS: OLANZapine 10 mg TABLET PO ×2 (07:45→17:40)
[2023-11-12] MEDS: nicotine 14 mg Patch 1 PATCH TRANSDERMA (07:45)
[2023-11-12] MEDS: aspirin 81 mg EC Tablet PO (07:46)
[2023-11-12] MEDS: amlodipine 10 mg Tablet PO (07:46)
[2023-11-12 08:38] LABS: Blood Urea Nitrogen 13 mg/dL (6-20); Carbon Dioxide 19 mmol/L (22-29); Chloride 98 mmol/L (98-107); Glomerular Filtration Rate 33.1 mL/min (90-130); Glucose 175 mg/dL (65-115); Osmolality Calculated 280 mOsm/kg (285-295); Sodium 133 mmol/L (136-145)
[2023-11-12] MEDS: insulin lispro 100 unit/1 mL SUBCUT ×3 (08:43→17:40)
[2023-11-12 08:52] LABS: Creatinine Clr Calc Pharmacy 41.3306
[2023-11-12 08:53] LABS: Anion Gap 20.6 (5-19); Potassium 4.6 mmol/L (3.5-5.1)
[2023-11-12 12:03] LABS: Glucose Point of Care 218 mg/dL (70-110)
[2023-11-12 14:00] VITALS: BP 120/82; PULSE 92; RESP 16; TEMP 36.8; O2SAT 99
--- NOTE | 2023-11-12 15:21 | PC.NURSE ---
Patient's guardian Maxine called and talked to this nurse. Patient's guardian voiced opposition to the care she is receiving on the unit, upset that her thorazine hasn't been restarted. This nurse has informed patient that there are medical reasons behind the decision (electrolyte imbalances). Patient requested a call-back from Dr. Quiles. This nurse left a note for Dr. Quiles on his desk that includes Maxine's call-back number.
[2023-11-12 17:06] LABS: Glucose Point of Care 213 mg/dL (70-110)
[2023-11-12] MEDS: escitalopram 10 mg Tablet 20 MG PO (17:40)
--- NOTE | 2023-11-12 17:59 | P.NPUPN_ITS ---
Subjective NPU 2 Subjective: 58-year-old female with a history of psy chosis along with a past history of methamphetamine dependence,depression and suicidal ideation. She had appeared isolative and unmotivated on the unit. She had refused to speak to the process description writer of this note today stating that she was angry. . Mental Status Exam 2 MSE Comments: This is an obese white female looking older than her stated age in hospital gown with limited grooming and adequate eye contact. No rocking behavior was appreciated today. She was minimally cooperative with exam in moderate distress. Speech was decreased in rate ,diminished in productivity and normal in volume. Mood was not endorsed., Her affect was irritable. Thought process was linear and organized. Thought content: Patient was unable to contract for safety. There were no delusions reported or noted. She was extremely guarded on exam. She did not appear to be responding to internal stimuli. Attention and concentration appeared intact and memory was mostly reliable but none were formally tested. She is alert and oriented x3. Insight is limited and judgment is limited, and impulse control is impaired. Vitals/I&O/Wt Last Vital Signs Temp 98.3 F 11/12/23 14:00 Pulse 92 11/12/23 14:00 Resp 16 11/12/23 14:00 BP 120/82 11/12/23 14:00 Pulse Ox 99 11/12/23 14:00 O2 Del Method Room Air 11/12/23 14:00 Weight last 48 hrs Weight 81.828 kg Data NPU 11/08/23 06:42 11/12/23 07:39 A&P Assessment and plan (1) Psychotic disorder: (2) PTSD (post-traumatic stress disorder): (3) Major depressive disorder, recurrent: (4) Methamphetamine use disorder, severe: (5) Diabetes mellitus with hyperglycemia, with long-term current use of insulin: (6) H/O heart artery stent: (7) Suicidal ideation: (8) Chest pain: (9) Nicotine dependence, cigarettes, uncomplicated: Plan This is a 58-year-old white female with a long history of mental health and addiction issues well-known to the neuropsychiatric unit from past hospitalizations generally with suicidality who presents again with suicidal ideation and UDS positive for THC. 1. Reduction in Zyprexa to 20mg appears to have led to decreased EPS and akathisia symptoms. Consider sahralibellay as patient had appeared to have done well on this medication in the past without worsening of glucose status. Reduce Lexapro to 10 mg daily due to potential worsening of effectiveness of Plavix associated with the combination use of these two medicines. 2.? Initiate every 15 minute checks for safety 3.? Encourage individual, group and milieu therapies once on unit. 4. Encourage sober living treatment after discharge at the highest level of care to which she is willing to commit. Involuntary Hold Information 2 96 Hour Hold: 96 Hour Involuntary Admission: Yes 96 Hour Hold Ending Date: 11/10/23 96 Hour Hold Ending Time: 18:45 Attestations NPU 2 Medical Necessity Statement*: Inpatient psychiatric hospitalization is medically necessary and the clinically appropriate intervention at this time. We will monitor medications and make changes as indicated. Likely length of stay 5-7 days. Coding Level of Care Code Acute Code for g Fwd Diagnoses Psychotic disorder F29 PTSD (post-traumatic stress disorder) F43.10 Major depressive disorder, recurrent F33.9 Methamphetamine use disorder, severe F15.20 Type 2 diabetes mellitus with hyperglycemia, with long-term current use of insulin E11.65; Z79.4 H/O heart artery stent Z95.5 Suicidal ideation R45.851 Chest pain R07.9 Nicotine dependence, cigarettes, uncomplicated F17.210
[2023-11-12 19:43] VITALS: BP 109/77; PULSE 79; RESP 16; TEMP 37.2; O2SAT 100
[2023-11-12 20:32] LABS: Glucose Point of Care 142 mg/dL (70-110)
[2023-11-12] MEDS: trazodone 100 mg Tablet 150 MG PO (21:31)
[2023-11-12] MEDS: insulin glargine 100 units/1 mL 30 UNIT SUBCUT (21:32)
[2023-11-13 06:00] VITALS: BP 109/74; PULSE 95; RESP 16; TEMP 36.7; O2SAT 99
[2023-11-13] MEDS: famotidine 20 mg Tablet PO ×2 (08:27→17:24)
[2023-11-13] MEDS: OLANZapine 10 mg TABLET PO ×2 (08:28→17:17)
[2023-11-13] MEDS: clopidogrel 75 mg Tablet PO (08:28)
[2023-11-13] MEDS: aspirin 81 mg EC Tablet PO (08:28)
[2023-11-13] MEDS: amlodipine 10 mg Tablet PO (08:28)
[2023-11-13] MEDS: metoprolol tartrate 50 mg Tablet PO ×2 (08:28→20:55)
[2023-11-13] MEDS: hyDRALAzine 25 mg Tablet PO ×2 (08:28→17:17)
[2023-11-13 08:31] LABS: Glucose Point of Care 212 mg/dL (70-110)
[2023-11-13] MEDS: insulin lispro 100 unit/1 mL SUBCUT ×4 (08:34→20:55)
[2023-11-13] MEDS: nicotine 14 mg Patch 1 PATCH TRANSDERMA (08:35)
--- NOTE | 2023-11-13 09:34 | PC.NURSE ---
PT CURRENTLY DENIES SI/HI. PT CURRENTLY ENDORSES AH/VH. PT STATED TO THIS NURSE I SEE SHADOWS AND THEY TALK TO ME. WHEN ASKED WHAT THEY ARE SAYING TO HER PT STATES THEY TELL ME TO BAD THINGS, MEAN THINGS TO MYSELF FOR TO OTHER PEOPLE. PT DENIES NEED FOR PRN MEDICATIONS. PT WAS COOPERATIVE WITH ASSESSMENT AND SCHEDULED MEDICATIONS. PT CURRENT NEEDS ARE MET AT THIS TIME.
[2023-11-13 11:50] LABS: Glucose Point of Care 224 mg/dL (70-110)
[2023-11-13] MEDS: hyDROXYzine 25 mg Capsule 50 MG PO (12:22)
--- NOTE | 2023-11-13 12:23 | PC.NURSE ---
PT CAME TO NURSES STATION WITH C/O ANXIETY RATING IT A 8/10 ON A 0-10 SCALE WHERE 0 IS NONE AND 10 IS THE WORST POSSIBLE. THIS NURSE ADMINISTERED 50 MG VISTARIL PO PRN FOR ANXIETY.
[2023-11-13 14:00] VITALS: BP 112/79; PULSE 79; RESP 17; TEMP 36.7; O2SAT 94
[2023-11-13 16:52] LABS: Glucose Point of Care 233 mg/dL (70-110)
--- NOTE | 2023-11-13 16:59 | P.NPUPN_ITS ---
Subjective NPU 2 Subjective: 58-year-old female with a history of psy chosis along with a past history of methamphetamine dependence,depression and suicidal ideation. The patient had reported that she continued to hear voices but did not have thoughts of hurting herself. She reported active desire to receive help and stated that she was thinking that she was ready to go home soon. She had appeared less isolative on the milieu. She reported no substance use in several months. Patient stated that she would return to her daughter who was her legal guardian. She had limited engagement in the milieu at this time. Mental Status Exam 2 MSE Comments: This is an obese white female looking older than her stated age in hospital gown with limited grooming and adequate eye contact. No rocking behavior was appreciated today. She was minimally cooperative with exam in moderate distress. Speech was decreased in rate but improved productivity and normal in volume. Mood was reported as better. Her affect was subdued. Thought process was linear and organized. Thought content: Patient was unable to contract for safety. There were no delusions reported or noted. She was less guarded on exam. She did not appear to be responding to internal stimuli. Attention and concentration appeared intact and memory was mostly reliable but none were formally tested. She is alert and oriented x3. Insight is limited and judgment is limited, and impulse control is impaired. There was no evidence of any abnormal involuntary motor movements nor any evidence of akathisia. Vitals/I&O/Wt Last Vital Signs Temp 98.0 F 11/13/23 14:00 Pulse 79 11/13/23 14:00 Resp 17 11/13/23 14:00 BP 112/79 11/13/23 14:00 Pulse Ox 94 11/13/23 14:00 O2 Del Method Room Air 11/13/23 06:00 Weight last 48 hrs Weight 81.828 kg Data NPU 11/08/23 06:42 11/12/23 07:39 A&P Assessment and plan (1) Psychotic disorder: (2) PTSD (post-traumatic stress disorder): (3) Major depressive disorder, recurrent: (4) Methamphetamine use disorder, severe: (5) Diabetes mellitus with hyperglycemia, with long-term current use of insulin: (6) H/O heart artery stent: (7) Suicidal ideation: (8) Chest pain: (9) Nicotine dependence, cigarettes, uncomplicated: Plan This is a 58-year-old white female with a long history of mental health and addiction issues well-known to the neuropsychiatric unit from past hospitalizations generally with suicidality who presents again with suicidal ideation and UDS positive for THC. 1. Reduction in Zyprexa to 20mg appears to have led to decreased EPS and akathisia symptoms. The patient guardian had requested that the patient be able to return home tomorrow as she stated that she no longer wanted her in the hospital. Horse Rancher of this note it informed the patient that she was on significantly high doses of Zyprexa that appeared to be giving her complications and that Thorazine had been discontinued due to concerns regarding potential arrhythmias and electrolyte abnormalities that may be associated with higher doses of these medications. Furthermore the combination of Celexa previously prescribed and famotidine is also strongly discouraged due to increased risk of QT prolongation and another risk of arrhythmias. Celexa has been reduced to 10 mg as the patient remains on famotidine. Zyprexa will remain at 10 mg twice a day. The patient medically speaking and appears to be more hydrated and appears from a medical standpoint to be able to return home. We will plan for discharge as per guardian's request tomorrow. 2.? Initiate every 15 minute checks for safety 3.? Encourage individual, group and milieu therapies once on unit. 4. Encourage sober living treatment after discharge at the highest level of care to which she is willing to commit. Involuntary Hold Information 2 96 Hour Hold: 96 Hour Involuntary Admission: Yes 96 Hour Hold Ending Date: 11/10/23 96 Hour Hold Ending Time: 18:45 Attestations NPU 2 Medical Necessity Statement*: Inpatient psychiatric hospitalization is medically necessary and the clinically appropriate intervention at this time. We will monitor medications and make changes as indicated. Likely length of stay 1-2 days. Coding Level of Care Code Acute Code for [facility] Fwd Diagnoses Psychotic disorder F29 PTSD (post-traumatic stress disorder) F43.10 Major depressive disorder, recurrent F33.9 Methamphetamine use disorder, severe F15.20 Type 2 diabetes mellitus with hyperglycemia, with long-term current use of insulin E11.65; Z79.4 H/O heart artery stent Z95.5 Suicidal ideation R45.851 Chest pain R07.9 Nicotine dependence, cigarettes, uncomplicated F17.210
[2023-11-13] MEDS: escitalopram 10 mg Tablet PO (17:20)
[2023-11-13 20:31] LABS: Glucose Point of Care 157 mg/dL (70-110)
[2023-11-13] MEDS: trazodone 100 mg Tablet 150 MG PO (20:54)
[2023-11-13] MEDS: insulin glargine 100 units/1 mL 30 UNIT SUBCUT (20:55)
[2023-11-13 21:55] VITALS: BP 110/77; PULSE 96; RESP 16; TEMP 36.8; O2SAT 97
[2023-11-14 06:00] VITALS: BP 115/83; PULSE 83; RESP 15; TEMP 36.6; O2SAT 98
[2023-11-14 06:41] LABS: Glucose Point of Care 151 mg/dL (70-110)
[2023-11-14] MEDS: amlodipine 10 mg Tablet PO (08:00)
[2023-11-14] MEDS: OLANZapine 10 mg TABLET PO (08:00)
[2023-11-14] MEDS: metoprolol tartrate 50 mg Tablet PO (08:00)
[2023-11-14] MEDS: clopidogrel 75 mg Tablet PO (08:00)
[2023-11-14] MEDS: aspirin 81 mg EC Tablet PO (08:00)
[2023-11-14] MEDS: famotidine 20 mg Tablet PO (08:00)
[2023-11-14] MEDS: insulin lispro 100 unit/1 mL SUBCUT ×2 (08:01→12:11)
[2023-11-14] MEDS: hyDRALAzine 25 mg Tablet PO (08:01)
[2023-11-14] MEDS: nicotine 14 mg Patch 1 PATCH TRANSDERMA (08:49)
[2023-11-14] MEDS: hyDROXYzine 25 mg Capsule 50 MG PO (10:40)
[2023-11-14 11:43] LABS: Glucose Point of Care 190 mg/dL (70-110)
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
--- NOTE | 2023-11-14 13:51 | PC.NURSE ---
pt appointee for (power of patent attorney )daughter Maxine signed AMA paperwork for pt to be discharged at 1348. advised pt and her daughter that pt was still having auditory hallucinations which daughter acknowledged with shrugging her shoulders and saying yes I know.
== END 2023-11-14 13:50 | disposition home or self-care (01) | DRG 885 ==
LOC: ER 20:00 → MEDSURG 20:16 → NP 11-09 13:14
PROVIDERS: Internal Medicine; Student in an Organized Health Care Education/Training Program; Admitting Provider Student in an Organized Health Care Education/Training Program; Emergency Provider Emergency Medicine; Visit Provider Psychiatry & Neurology Psychiatry
DX: F29 Unspecified psychosis not due to a substance or known physiological condition (principal); E87.1 Hypo-osmolality and hyponatremia; F15.20 Other stimulant dependence, uncomplicated; F33.9 Major depressive disorder, recurrent, unspecified; N17.9 Acute kidney failure, unspecified; R45.851 Suicidal ideations; E86.0 Dehydration; E87.6 Hypokalemia; F43.10 Post-traumatic stress disorder, unspecified; F12.90 Cannabis use, unspecified, uncomplicated; R07.9 Chest pain, unspecified; F17.210 Nicotine dependence, cigarettes, uncomplicated; K21.9 Gastro-esophageal reflux disease without esophagitis; E78.5 Hyperlipidemia, unspecified; I10 Essential (primary) hypertension; I25.10 Atherosclerotic heart disease of native coronary artery without angina pectoris; J44.9 Chronic obstructive pulmonary disease, unspecified; Z95.5 Presence of coronary angioplasty implant and graft; M51.36 Other intervertebral disc degeneration, lumbar region; E11.65 Type 2 diabetes mellitus with hyperglycemia; Z79.4 Long term (current) use of insulin
CPT/HCPCS: 36415; 36416; 71045; 74176; 80048; 80053; 80306; 80307; 81001; 82962; 83036; 85025; 96361; 96372; 96374; 97150; 97165; 99285; J1644; J1815; J2405; J3490; J7030; J7799